=== PATIENT | male | born 1945 | race Caucasian/White ===

== ENCOUNTER → 2018-04-26 | Outpatient (CLI) | payer MEDICARE, OTHER ==
[~2018-04-26] MED LIST: AMLO5 PO; ASPI81EC PO; LISI20 PO; LOVA40 PO; NEBI5 PO; SPIHYD PO; WARF10 PO; WARF5 PO
== END | disposition home or self-care (01) ==
LOC: LAB SHORT 12:13 → LAB 12:13
DX: L03.115 Cellulitis of right lower limb (principal)
CPT/HCPCS: 87070

== ENCOUNTER → 2020-10-25 | Outpatient (CLI) | payer MEDICARE, OTHER | END | disposition home or self-care (01) | LOC: LAB 13:28 → LAB SHORT 13:28 | DX: N39.0 Urinary tract infection, site not specified (principal) | CPT/HCPCS: 87077; 87086; 87186 ==

== ENCOUNTER → 2021-02-07 | Outpatient (CLI) | payer MEDICARE, OTHER ==
[~2021-02-07] MED LIST changes: +FUROSEMIDE40 MG PO; +JANTOVEN10 M2 PO; +K-Dur 20 meq T20 MEQ PO; +NEBI10 PO; +TAMSULOSIN HCL0.4 M1 PO
== END ==
LOC: LAB 13:35 → LAB SHORT 13:35
DX: L97.922 Non-pressure chronic ulcer of unspecified part of left lower leg with fat layer exposed (principal)
CPT/HCPCS: 87070; 87075; 87205

== ENCOUNTER → 2021-11-09 | Outpatient (CLI) | payer MEDICARE, OTHER ==
[2021-11-09 13:48] LABS: BASOPHILS ABSOLUTE AUTO 0.07 K/mm3 (0.00-0.23); BASOPHILS PERCENT AUTO 1 % (0-2); EOSINOPHILS PERCENT AUTO 2 % (0-6); Hematocrit 46.6 % (37.0-53.0); Hemoglobin 17.4 g/dL (13.5-17.5); IMMATURE GRAN ABSOLUTE AUTO 0.05 K/mm3 (0.00-0.10); IMMATURE GRAN PERCENT AUTO 1 % (0-1); LYMPHOCYTES ABSOLUTE AUTO 1.35 K/mm3 (0.84-5.20); LYMPHOCYTES PERCENT AUTO 14 % (21-46); MONOCYTES ABSOLUTE AUTO 0.92 K/mm3 (0.16-1.47); MONOCYTES PERCENT AUTO 9 % (4-13); Mean Corpuscular HGB 35.2 pg (26.0-34.0); Mean Corpuscular HGB Conc 37.3 g/dL (31.5-36.5); Mean Corpuscular Volume 94 fL (80-100); Mean Platelet Volume 11.4 fL (9.1-12.4); NEUTROPHILS ABSOLUTE AUTO 7.16 K/mm3 (1.96-9.15); NEUTROPHILS PERCENT AUTO 74 % (41-73); Platelet Count 197 K/mm3 (150-400); RDW Coefficient Variation 13.1 % (11.7-14.2); RDW Standard Deviation 44.9 fL (35.1-46.3); Red Blood Cell Count 4.94 M/mm3 (4.30-5.90); White Blood Cell Count 9.75 K/mm3 (4.00-11.30)
[2021-11-09 13:54] LABS: Alanine Aminotransfer (ALT/SGP 21 U/L (12-78); Albumin, Blood 3.4 g/dL (3.4-5.0); Albumin/Globulin Ratio 0.8 (0.8-1.8); Alk Phos 98 U/L (50-136); Anion Gap 6 mmol/L (6-16); Aspartate Aminotrans (AST/SGOT 25 U/L (12-37); Bilirubin, Direct 0.2 mg/dL (0.0-0.3); Bilirubin, Indirect 1.2 mg/dL (0.1-0.7); Bilirubin, Total 1.4 mg/dL (0.1-1.0); Blood Urea Nitrogen 22 mg/dL (8-24); Bun/Creatinine Ratio 18.8 (12.0-20.0); CO2, Blood 27 mmol/L (21-32); Chloride, Blood 105 mmol/L (98-108); Creatinine, Blood 1.17 mg/dL (0.60-1.20); Ferritin, Serum 93 ng/mL (26-388); Globulin, Blood 4.5 g/dL (2.2-4.0); Glomerular Filtration Rate >60 (60-); Glucose, Blood 108 mg/dL (70-99); Iron Serum 55 ug/dL (65-175); Percent Saturation 13.6 % (20.0-50.0); Phosphorus, Blood 2.1 mg/dL (2.5-4.9); Potassium, Blood 4.2 mmol/L (3.5-5.5); Sodium, Blood 138 mmol/L (136-145); Total Iron Binding Capacity 403 ug/dL (250-450); Total Protein, Blood 7.9 g/dL (6.4-8.2); Uric Acid, Blood 8.8 mg/dL (3.5-7.2)
[2021-11-11 15:07] LABS: A/G RATIO 0.9 (0.7-1.7); ALBUMIN 3.3 g/dL (2.9-4.4); ALPHA-1-GLOBULIN 0.3 g/dL (0.0-0.4); ALPHA-2-GLOBULIN 0.8 g/dL (0.4-1.0); BETA GLOBULIN 1.2 g/dL (0.7-1.3); GAMMA GLOBULIN 1.8 g/dL (0.4-1.8); GLOBULIN, TOTAL 4.1 g/dL (2.2-3.9); IMMUNOGLOBULIN A, QN, SERUM 348 mg/dL (61-437); IMMUNOGLOBULIN G, QN, SERUM 1727 mg/dL (603-1613); IMMUNOGLOBULIN M, QN, SERUM 96 mg/dL (15-143); M-SPIKE Not Observed g/dL (Not Observed); PROTEIN, TOTAL, SERUM 7.4 g/dL (6.0-8.5)
== END | disposition home or self-care (01) ==
LOC: LAB SHORT 12:43
PROVIDERS: Internal Medicine Nephrology
DX: N18.30 Chronic kidney disease, stage 3 unspecified (principal); D63.1 Anemia in chronic kidney disease; E83.41 Hypermagnesemia; E83.30 Disorder of phosphorus metabolism, unspecified; N25.81 Secondary hyperparathyroidism of renal origin; E78.00 Pure hypercholesterolemia, unspecified; D51.8 Other vitamin B12 deficiency anemias; D52.8 Other folate deficiency anemias; D50.9 Iron deficiency anemia, unspecified; R76.9 Abnormal immunological finding in serum, unspecified; R94.5 Abnormal results of liver function studies; R94.6 Abnormal results of thyroid function studies; Z94.0 Kidney transplant status
CPT/HCPCS: 80053; 82248; 82607; 82728; 82746; 83036; 83540; 83550; 83970; 84100; 84443; 84550; 85025

== ENCOUNTER → 2021-11-09 | Outpatient (CLI) | payer MEDICARE, OTHER ==
[2021-11-10 18:06] LABS: Protein, Urine Random <5.0 mg/dL (0.0-11.9)
== END | disposition home or self-care (01) ==
LOC: LAB SHORT 21:00 → LAB 21:00
PROVIDERS: Internal Medicine Nephrology
DX: N18.30 Chronic kidney disease, stage 3 unspecified (principal); D63.1 Anemia in chronic kidney disease; E83.41 Hypermagnesemia; E83.30 Disorder of phosphorus metabolism, unspecified; N25.81 Secondary hyperparathyroidism of renal origin; E78.00 Pure hypercholesterolemia, unspecified; D51.8 Other vitamin B12 deficiency anemias; D52.8 Other folate deficiency anemias; D50.9 Iron deficiency anemia, unspecified; R76.9 Abnormal immunological finding in serum, unspecified; R94.5 Abnormal results of liver function studies; R94.6 Abnormal results of thyroid function studies; Z94.0 Kidney transplant status
CPT/HCPCS: 82043; 82570; 84156

== ENCOUNTER → 2021-11-10 | Outpatient (CLI) | payer MEDICARE, OTHER ==
[2021-11-10 18:00] LABS: Creatinine, Urine Random 97.1 mg/dL (27.00-270.00); Protein, Urine Random 13.3 mg/dL (0.0-11.9)
[2021-11-10 18:02] LABS: Microalbumin, Random Urine 14.1 mg/L (0.000-20.000)
== END | disposition home or self-care (01) ==
LOC: LAB 11:51 → LAB SHORT 11:51
PROVIDERS: Internal Medicine Nephrology
DX: N18.30 Chronic kidney disease, stage 3 unspecified (principal); D63.1 Anemia in chronic kidney disease; R73.09 Other abnormal glucose; M10.9 Gout, unspecified; N25.81 Secondary hyperparathyroidism of renal origin; E29.1 Testicular hypofunction; R76.9 Abnormal immunological finding in serum, unspecified; R94.5 Abnormal results of liver function studies; R94.6 Abnormal results of thyroid function studies; D51.8 Other vitamin B12 deficiency anemias; D52.8 Other folate deficiency anemias; D50.9 Iron deficiency anemia, unspecified
CPT/HCPCS: 82043; 82570; 84156

== ENCOUNTER 2022-08-30 06:17 | Observation (INO) | payer MEDICARE, OTHER ==
[~2022-08-30] VITALS: Ht 188 cm; Wt 124.5 kg
[~2022-08-30 06:17] MED LIST changes: +BUME2 PO; +METO5 PO
[2022-08-30 07:28] LABS: BASOPHILS ABSOLUTE AUTO 0.04 K/mm3 (0.00-0.23); BASOPHILS PERCENT AUTO 1 % (0-2); EOSINOPHILS ABSOLUTE AUTO 0.11 K/mm3 (0.00-0.68); EOSINOPHILS PERCENT AUTO 2 % (0-6); Hematocrit 42.7 % (37.0-53.0); IMMATURE GRAN ABSOLUTE AUTO 0.01 K/mm3 (0.00-0.10); IMMATURE GRAN PERCENT AUTO 0 % (0-1); LYMPHOCYTES ABSOLUTE AUTO 1.31 K/mm3 (0.84-5.20); LYMPHOCYTES PERCENT AUTO 21 % (21-46); MONOCYTES ABSOLUTE AUTO 0.66 K/mm3 (0.16-1.47); MONOCYTES PERCENT AUTO 10 % (4-13); Mean Corpuscular HGB 30.8 pg (26.0-34.0); Mean Corpuscular HGB Conc 32.8 g/dL (31.5-36.5); Mean Corpuscular Volume 94 fL (80-100); Mean Platelet Volume 11.4 fL (9.1-12.4); NEUTROPHILS ABSOLUTE AUTO 4.23 K/mm3 (1.96-9.15); NEUTROPHILS PERCENT AUTO 67 % (41-73); Platelet Count 152 K/mm3 (150-400); RDW Coefficient Variation 12.9 % (11.7-14.2); RDW Standard Deviation 44.6 fL (35.1-46.3); Red Blood Cell Count 4.55 M/mm3 (4.30-5.90); White Blood Cell Count 6.36 K/mm3 (4.00-11.30)
[2022-08-30 07:35] LABS: International Normalized Ratio 1.34; Prothrombin Time Results 13.8 Sec (9.7-11.5)
--- NOTE | 2022-08-30 08:13 | NUR ---
08/30/22 0813 Susan Shane PILLOW UNDER KNEES, GEL UNDER HEELS, ARMS TUCKED AT SIDE, SHOULDER ROLL, HEAD ON DONUT. POSITION VERIFIED BY SURGEON AND ANESTHESIA.
--- NOTE | 2022-08-30 09:25 | NUR ---
08/30/22 0925 SABRINA MONROY PT JUST REMOVED O2 AT 0922. SAID HE DIDN'T NEED IT. O2 DROPPED TO UPPER 80'S. O2 BACK ON VIA FACE TENT. NOW 95% ON 15 L. WILL DECREASE TO 10L FOR TRAIL. INFORMED THAT PREOP O2 SAT ON RA WAS 95%
--- NOTE | 2022-08-30 09:58 | NUR ---
08/30/22 0958 SABRINA MONROY PT O2 SAT DROPPED AGAIN WHEN MOVED TO STEP DISPITE DEEP BREATH AND COUGH. TEMPORARILY INTO 70'S. O2 ON 15L INITIALLY BROUTH UP INTO HIGH 90'S. DROPPED O2 TO 10L. CURRENTLY 99% ON 10L. WILL DROP TO 5L FOR TRIAL.
[2022-08-30 15:40] LABS: BASOPHILS ABSOLUTE AUTO 0.01 K/mm3 (0.00-0.23); BASOPHILS PERCENT AUTO 0 % (0-2); EOSINOPHILS PERCENT AUTO 0 % (0-6); Hematocrit 42.4 % (37.0-53.0); Hemoglobin 13.2 g/dL (13.5-17.5); IMMATURE GRAN ABSOLUTE AUTO 0.02 K/mm3 (0.00-0.10); IMMATURE GRAN PERCENT AUTO 0 % (0-1); LYMPHOCYTES ABSOLUTE AUTO 0.42 K/mm3 (0.84-5.20); LYMPHOCYTES PERCENT AUTO 6 % (21-46); MONOCYTES ABSOLUTE AUTO 0.08 K/mm3 (0.16-1.47); MONOCYTES PERCENT AUTO 1 % (4-13); Mean Corpuscular HGB 30.2 pg (26.0-34.0); Mean Corpuscular HGB Conc 31.1 g/dL (31.5-36.5); Mean Corpuscular Volume 97 fL (80-100); Mean Platelet Volume 10.6 fL (9.1-12.4); NEUTROPHILS ABSOLUTE AUTO 6.75 K/mm3 (1.96-9.15); NEUTROPHILS PERCENT AUTO 93 % (41-73); Platelet Count 142 K/mm3 (150-400); RDW Coefficient Variation 12.8 % (11.7-14.2); RDW Standard Deviation 46.1 fL (35.1-46.3); Red Blood Cell Count 4.37 M/mm3 (4.30-5.90); White Blood Cell Count 7.28 K/mm3 (4.00-11.30)
[2022-08-30 16:02] LABS: Albumin, Blood 3.4 g/dL (3.4-5.0); Bilirubin, Total 1.3 mg/dL (0.1-1.0); Bun/Creatinine Ratio 19.3 (12.0-20.0); Calcium, Blood 10.4 mg/dL (8.5-10.1); Creatinine, Blood 1.14 mg/dL (0.60-1.20); Globulin, Blood 3.4 g/dL (2.2-4.0); Potassium, Blood 4.1 mmol/L (3.5-5.5); Total Protein, Blood 6.8 g/dL (6.4-8.2)
--- NOTE | 2022-08-30 18:41 | NUR ---
SHIFT SUMMARY- ASSUMED CARE OF PT AT 1430 FROM [facility], PROCEDURE DONE IN AM. REPORT GIVEN FROM PAUL MIGUEL. PT SAT OK SITTING BUT DECLINED HE LAID IN BED, O2 4L VIA NC. SATING NOW AT 92-94. PT ABLE TO STAND WITHOUT ASSITANCE. NO DIZZINESS NOTED. APPETITE GOOD. A&O X4. NO VISUAL DISTURBANCES SINCE ADMITTED TO FLOOR. PT RESTING NOW WITH CALL LIGHT IN REACH, WILL CONTIINUE TO MONITOR.
[2022-08-31 04:15] LABS: International Normalized Ratio 1.19; Prothrombin Time Results 12.4 Sec (9.7-11.5)
[2022-08-31 04:19] LABS: Calcium, Blood 10.1 mg/dL (8.5-10.1); Creatinine, Blood 1.24 mg/dL (0.60-1.20); Potassium, Blood 4.3 mmol/L (3.5-5.5)
--- NOTE | 2022-08-31 05:44 | NUR ---
SHIFT SUMMARY ASSUMED CARE OF PT @ 1900. PT IS A/OX4 BUT LETHARGIC. PT REMAINED ON 3L NC T/O THE NIGHT. LUNG SOUNDS DIMINISHED. HEART SOUNDS IRREGULAR.PT HR DIPPED TO 45 DURING THE NIGHT. VSS. NECK WOUND DRESSING C/D/I. PT HAD NO COMPLAINTS OF PAIN.
--- NOTE | 2022-08-31 07:14 | NUR ---
NURSING PCU DAYSHIFT: Assumed care of pt at approx 0700. A/O, very pleasant, cooperative w/care. C/O 2/10 anterior neck pain r/t recent sx, denies need for pain management. Gauze dressing in place to sx site, CDI, skin otherwise intact. Able to reposition independently in bed w/o difficulty though requires assistance w/xfers for line management. Tele in place, afib, HR 50-60's, no c/o CP/pressure, hypertensive prior to a.m. meds, 1-2+ BLE edema (L>R). L/S coarse in upper lobes, fine crackles to LLL, frequent moist/unproductive cough, O2 sat upper 90's on 2L NC while awake though staff reported desaturations while asleep, denies dyspnea. Abd SNT, BT+, voiding w/o difficulty per pt. PIV x1, s/l. No s/s of acute distress this a.m. Will monitor HTN and respiratory status after a.m. med administration. Pt anticipating discharge home. Denies any current needs or questions regarding plan of care. Awaiting rounding from PMD, cont to monitor for any changes.
[2022-08-31] MEDS ORDERED: POTA10T PO (11:09)
[2022-08-31] MEDS ORDERED: LOSA50 PO (11:13)
[2022-08-31] MEDS ORDERED: BACITRACIN ZIN1 EAC1 TOP (11:20)
[2022-08-31] MEDS ORDERED: Acetaminophen650 M1 PO (12:12)
[2022-08-31] MEDS ORDERED: CARV6.25 PO (12:13)
--- NOTE | 2022-08-31 12:18 | NUR ---
Call to Dr Maxwell after pt had a 3 second pause on telemetry. Atrial fibrillation, rate 50-65 while awake. Discharge cancelled. Dr. León's office was called and notified as well.
--- NOTE | 2022-08-31 16:26 | NUR ---
Call to Dr. Sapp after patient had atrial fibrillation down to rate of 37 bpm while awake. New order received for overnight sleep oximetry. Also given instructions to hold the coumadin as the pt is still having tea-colored urine with dark red sediment in it.
[2022-08-31 16:42] LABS: Magnesium, Blood 1.7 mg/dL (1.6-2.4)
[2022-08-31 16:44] LABS: Thyroid Stimulating Hormone 1.49 uIU/mL (0.360-4.800)
--- NOTE | 2022-08-31 16:48 | NUR ---
Pt has had a productive cough occasionally this afternoon, white sputum. States he's had the cough for "20 years". Lung sounds are clear on inspiration, expiratory wheezing. He is not in distress, denies any dyspnea. Sp02 96% on 2 l/min. Oxygen in use because he has been napping and spo2 drops while he is sleeping. He is able to stand at the bedside, use the urinal, reposition in bed without any apparent difficulty. Atrial fibrillation, rate 55-65 bpm noted at bedside. Denies pain at surgical site. Dressing was the removed, incision was clean, dry and edges approximated. Red bruising noted around the incision. Bacitracin ointment applied as ordered by Dr. León.
--- NOTE | 2022-08-31 16:58 | NUR ---
Urine color is light pink.
[2022-09-01 04:07] LABS: International Normalized Ratio 1.56; Prothrombin Time Results 15.9 Sec (9.7-11.5)
[2022-09-01 04:09] LABS: Bun/Creatinine Ratio 23.4 (12.0-20.0); Calcium, Blood 9.6 mg/dL (8.5-10.1); Creatinine, Blood 1.45 mg/dL (0.60-1.20); Potassium, Blood 3.7 mmol/L (3.5-5.5)
--- NOTE | 2022-09-01 05:41 | NUR ---
SHIFT SUMMARY PT IS A&OX4, BUT NEEDS REMINDERS TO USE HIS CALL LIGHT WHEN GETTING OUT OF BED. HE HAS BEEN GETTING UP ABOUT EVERY 30 MINS TO URINATE, AND HAS URGENCY WHEN NEEDING TO VOID SO HE DOES NOT WAIT VERY LONG AFTER HITTING HIS CALL BUTTON FOR ASSISTANCE. A [facility], BUT WAS UNSUCCESSFUL DUE TO THE FREQUENCY OF URINATION. THE PT HAS BEEN GETTING DIURETICS, AND WAS FRUSTRATED ABOUT TAKING THEM LATER IN THE DAY. HE HAS BARLEY SLEPT TONIGHT. PT'S SPO2 WAS 74-95 T/O THE TRIAL ON RA, BUT ONCE RT STOPPED THE STUDY THE PT WAS PLACED ON 2L NC TO MAINTAIN SPO2 >90%. ALL OTHER VS HAVE BEEN STABLE, HE HAS HAD NO PAUSES ON TELEMETRY. THE PT IS W/O ANY COMPLAINTS, AND HE HAS HAD A NON-PRODUCTIVE CONSTANT COUGH. THE PT HAS A BED ALARM ON, BED IN LOW, DOOR IS OPEN, HE IS SBA FOR TX, AND MOVES IND IN BED. WILL CONTINUE TO MONITOR UNTIL REPORT IS GIVNE TO THE ONCOMING SHIFT RN. SEE NOTES FOR ANY UPDATES.
--- NOTE | 2022-09-01 06:44 | NUR ---
TELEMETRY UPDATE TELE REPORTED AN 8 BEAT RIGHT BUNDLE FLIP AROUND 0600. BACK IN NSR CURRENTLY.
[2022-09-01] MEDS ORDERED: AMLO5 PO (10:10)
[2022-09-01] MEDS ORDERED: BACITRACIN ZIN1 EAC1 TOP (10:11)
--- NOTE | 2022-09-01 12:52 | NUR ---
DISCHARGE UPDATE DISCHARGE PACKET GONE OVER WITH PT AND PT AT 1155. PT LEFT UNIT AT 1215 VIA WHEELCHAIR AND ON RA. PT ABLE TO DRESS AND TRANSFER SELF TO AND FROM WHEELCHAIR ON HIS OWN WITH NO ASSISTANCE. NO REPORT OF DIZZINESS, LIGHTHEADEDNESS, OR PALPITATION. PT BELONGINGS IN BAGS AND WITH PT ALONG WITH DISCHARGE PACKET.
== END 2022-09-01 12:16 | disposition home or self-care (01) ==
LOC: ORSCSDS 06:17 → PCU 15:10
PROVIDERS: Internal Medicine; Nurse Practitioner Acute Care; ADMIT Otolaryngology
DX: E21.0 Primary hyperparathyroidism (principal); D35.1 Benign neoplasm of parathyroid gland; I48.20 Chronic atrial fibrillation, unspecified; I45.5 Other specified heart block; J95.89 Other postprocedural complications and disorders of respiratory system, not elsewhere classified; R09.02 Hypoxemia; N40.0 Benign prostatic hyperplasia without lower urinary tract symptoms; I27.20 Pulmonary hypertension, unspecified; E87.70 Fluid overload, unspecified; D63.8 Anemia in other chronic diseases classified elsewhere; I13.0 Hypertensive heart and chronic kidney disease with heart failure and stage 1 through stage 4 chronic kidney disease, or unspecified chronic kidney disease; I50.32 Chronic diastolic (congestive) heart failure; N18.30 Chronic kidney disease, stage 3 unspecified; E78.5 Hyperlipidemia, unspecified; I87.8 Other specified disorders of veins; R31.9 Hematuria, unspecified; M81.0 Age-related osteoporosis without current pathological fracture; Z79.01 Long term (current) use of anticoagulants; Z79.82 Long term (current) use of aspirin; Z87.891 Personal history of nicotine dependence
CPT/HCPCS: 36415; 71045; 80048; 80053; 83735; 83880; 83970; 84443; 84484; 85025; 85610; 85730; 88305; 88331; 93246; 94760; 94761; 94762; A9270; G0378; J1100; J2250; J2405; J2704; J3010

== ENCOUNTER 2022-09-17 16:25 | Inpatient (IN) | payer MEDICARE, OTHER ==
[~2022-09-17] VITALS: Ht 190.5 cm; Wt 119.0 kg
[~2022-09-17 16:25] MED LIST changes: +AMLO5 PT; +Acetaminophen650 M1 PO; +BACITRACIN ZIN1 EAC1 TOP; -BUME2 PO; +BUME2 PT; +CARV6.25 PO; +LOSA50 PT; -METO5 PO; +METO5 PT; +POTA10T PT; -TAMSULOSIN HCL0.4 M1 PO; +TAMSULOSIN HCL0.4 M1 PT
[2022-09-17 17:14] LABS: Magnesium, Blood 1.5 mg/dL (1.6-2.4)
[2022-09-17 17:16] LABS: Albumin, Blood 3.5 g/dL (3.4-5.0); Albumin/Globulin Ratio 0.9 (0.8-1.8); Calcium, Blood 9.1 mg/dL (8.5-10.1); Globulin, Blood 4.1 g/dL (2.2-4.0); Potassium, Blood 4.8 mmol/L (3.5-5.5); Thyroid Stimulating Hormone 5.37 uIU/mL (0.360-4.800); Total Protein, Blood 7.6 g/dL (6.4-8.2)
[2022-09-17 18:11] LABS: BASOPHILS ABSOLUTE AUTO 0.03 K/mm3 (0.00-0.23); BASOPHILS PERCENT AUTO 0 % (0-2); EOSINOPHILS PERCENT AUTO 0 % (0-6); Hematocrit 44.6 % (37.0-53.0); IMMATURE GRAN ABSOLUTE AUTO 0.05 K/mm3 (0.00-0.10); IMMATURE GRAN PERCENT AUTO 0 % (0-1); LYMPHOCYTES ABSOLUTE AUTO 0.61 K/mm3 (0.84-5.20); LYMPHOCYTES PERCENT AUTO 5 % (21-46); MONOCYTES PERCENT AUTO 5 % (4-13); Mean Corpuscular HGB 30.2 pg (26.0-34.0); Mean Corpuscular HGB Conc 33.6 g/dL (31.5-36.5); Mean Corpuscular Volume 90 fL (80-100); Mean Platelet Volume 10.4 fL (9.1-12.4); NEUTROPHILS ABSOLUTE AUTO 11.36 K/mm3 (1.96-9.15); NEUTROPHILS PERCENT AUTO 90 % (41-73); Platelet Count 213 K/mm3 (150-400); RDW Coefficient Variation 12.4 % (11.7-14.2); RDW Standard Deviation 41.1 fL (35.1-46.3); Red Blood Cell Count 4.96 M/mm3 (4.30-5.90); White Blood Cell Count 12.65 K/mm3 (4.00-11.30)
[2022-09-17 18:14] LABS: Influenza A, PCR NEGATIVE (NEGATIVE); Influenza B, PCR NEGATIVE (NEGATIVE); Resp Syncytial Virus, PCR NEGATIVE (NEGATIVE); SARS-Cov-2 (COVID-19) PCR, MMC NEGATIVE (NEGATIVE)
[2022-09-17 18:15] LABS: International Normalized Ratio 1.41; Prothrombin Time Results 14.5 Sec (9.7-11.5)
[2022-09-17 20:51] LABS: Source, Urine Straight Cath
[2022-09-17 21:07] LABS: Appearance, Urine Clear (Clear); Bilirubin, Urine Neg (Neg); Blood, Urine 2+ (Neg); Color, Urine Yellow (P-Yellow); Glucose Qualitative, Urine Neg (Neg); Ketones, Urine 1+ (Neg); Leukocyte Esterase, Urine 1+ (Neg); Nitrite, Urine Neg (Neg); Protein, Urine 2+ (Neg); Urobilinogen, Urine NORM (Normal)
[2022-09-17 22:02] LABS: Bacteria Few /hpf; Hyaline Casts 0-2 /lpf (0-2); Spermatozoa Few /hpf; Squamous Epithelial Cells Few /hpf (Few); White Blood Cells, Urine 0-2 /hpf (0-5)
[2022-09-18 04:22] LABS: BASOPHILS ABSOLUTE AUTO 0.03 K/mm3 (0.00-0.23); BASOPHILS PERCENT AUTO 0 % (0-2); EOSINOPHILS ABSOLUTE AUTO 0.01 K/mm3 (0.00-0.68); EOSINOPHILS PERCENT AUTO 0 % (0-6); Hematocrit 42.8 % (37.0-53.0); Hemoglobin 14.1 g/dL (13.5-17.5); IMMATURE GRAN ABSOLUTE AUTO 0.04 K/mm3 (0.00-0.10); IMMATURE GRAN PERCENT AUTO 1 % (0-1); LYMPHOCYTES ABSOLUTE AUTO 0.99 K/mm3 (0.84-5.20); LYMPHOCYTES PERCENT AUTO 11 % (21-46); MONOCYTES PERCENT AUTO 8 % (4-13); Mean Corpuscular HGB 29.6 pg (26.0-34.0); Mean Corpuscular HGB Conc 32.9 g/dL (31.5-36.5); Mean Corpuscular Volume 90 fL (80-100); Mean Platelet Volume 10.3 fL (9.1-12.4); NEUTROPHILS ABSOLUTE AUTO 6.96 K/mm3 (1.96-9.15); NEUTROPHILS PERCENT AUTO 80 % (41-73); Platelet Count 224 K/mm3 (150-400); RDW Coefficient Variation 12.4 % (11.7-14.2); RDW Standard Deviation 41.3 fL (35.1-46.3); Red Blood Cell Count 4.76 M/mm3 (4.30-5.90); White Blood Cell Count 8.73 K/mm3 (4.00-11.30)
[2022-09-18 04:43] LABS: Albumin, Blood 3.2 g/dL (3.4-5.0); Albumin/Globulin Ratio 0.8 (0.8-1.8); Bun/Creatinine Ratio 16.4 (12.0-20.0); Calcium, Blood 9.3 mg/dL (8.5-10.1); Creatinine, Blood 1.16 mg/dL (0.60-1.20); Globulin, Blood 4.1 g/dL (2.2-4.0); Potassium, Blood 4.3 mmol/L (3.5-5.5); Total Protein, Blood 7.3 g/dL (6.4-8.2)
--- NOTE | 2022-09-18 05:54 | NUR ---
SHIFT SUMMARY ASSUMED CARE OF PT. ADMITTED FROM ER. PT IS ALERT AND TALKING BUT NOT ORIENTED. PT ABLE TO MAKE NEEDS KNOWN. HEART SOUNDS IRREGULAR, TELE SHOWS AFIB. LUNG SOUNDS CLEAR. PT HAS FAINT PERIPHERAL PULSES. R LEG IS VERY COOL TO TOUCH. L EXTREMIITESIS HOT TO TOUCH WITH ABRASIONS. PT ABLE TO LIFT L LEG SLIGHTLY BUT CANT LIFT L ARM. PT C/I ON BLADDER. PT RETAIING URINE. BLADDER SCAN SHOWED 250 AND PT URINATED 50CC.
--- NOTE | 2022-09-18 16:08 | NUR ---
PERFORMED SUCTION ON PATIENT FOR PRODUCTIVE COUGH. FOLLOWING SUCTION, COUGH PERSISTED, BUT PATIENT STATED NO SECRETIONS WERE COMING UP TO CLEAR, SO HE DECLINED FURTHER SUCTION AT THIS TIME.
--- NOTE | 2022-09-18 16:24 | NUR ---
Shift Summary Pt alert this am, oriented to self. Garbled speech noted. Left sided facial droop, left arm flaccid and minimal gross movement noted to left leg. Pt on bedrest, q2 turn. Speech in to see patient this afternoon, pt failed planned for barrium swallow eval tomorrow. MRI completed this afternoon, Dr Ramos notified of results. Tele afib, bp stable. Spo2 >90% on ra, breathing even and unlabored. Wet weak cough noted, suctioned with minimal out. Vss. No other acute changes noted. Will continue to monitor unitl report given to oncoming rn.
--- NOTE | 2022-09-18 18:50 | NUR ---
Evening ekg completed, notified edilberto Rushing for discharge with medciation per emar. Notified Dr Peres and discussed elevated bp, new orders for discharge. Educated pt on discharge instructions, follow up appointment and new prescirptions. Prescriptions called/faxed to [facility] pharmacy, per pt request. Educated pt on medications and the need to keep blood pressure log, and follow up with pcp on bp. Pt left via wheelchair at 1837.
--- NOTE | 2022-09-19 06:33 | NUR ---
NOC SHIFT SUMMARY PT SLEPT WELL OVERNIGHT. ORIENTED X2-3, UNSURE OF DATE OR TIME. BRIDGETTE. AFIB ON TELEMETRY. L PO DROOP. VSS ON RA. CONDOM CATH PLACED D/T URINE INCONTINENCE. BED ALARM IN PLACE AND CALL LIGHT WITHIN REACH. WILL PASS ON TO DAY RN
[2022-09-19 13:11] LABS: CHOL/HDL RATIO 3.6; Cholesterol 115 mg/dL (50-200); HDL Cholesterol 32 mg/dL (>39); LDL/HDL RATIO 2.1; Low Density Lipoprotein Chol 66 mg/dL (0-110); Triglycerides 84 mg/dL (30-160); Very Low Density Lipoprot Chol 16 mg/dL (6-32)
--- NOTE | 2022-09-19 13:29 | NUR ---
Echocardiogram completed.
--- NOTE | 2022-09-19 17:47 | NUR ---
SHIFT SUMMARY PT ALERT, ORIENTED x3, FORGETUL AT TIMES. LEFT FACIAL DROOP PRESENT, LEFT ARM FLACCID, AND MINIMAL GROSS MOVEMENT TO LEFT LEG. PT DENIES PAIN, CHEST PAIN/PRESSURE, SOB, NAUSEA, DIZZINESS AND NUMB/TINGLING. PT UNABLE TO TELL WHEN HIS LEFT SIDE IS BEING TOUCHED. INCREASED SECRETIONS NOTED, SUCTIONED SEVERAL TIMES T/O SHIFT. PT RESTING IN BED, Q2 TURN. PT UP TO SIDE OF BED WITH PT/OT THIS AFTERNOON. PT HAD ST EVAL THIS AM, STRICT NPO, PLANS FOR PEG TUBE TOMORROW. VSS. NO OTHER ACUTE CHANGES NOTED. WILL CONITNUE TO MONITOR UNTIL REPORT GIVEN TO ONCOMING RN.
--- NOTE | 2022-09-20 05:59 | NUR ---
NOC SHIFT SUMMARY PT SLEPT WELL OVERNIGHT. ORIENTED X4 BUT FORGETFUL. L ARM AND L LEG DEFICIT. L PO DROOP. POOR CLEARANCE OF SECRETIONS, SUCTION AT BEDSIDE AND ORAL CARE Q4. PT NPO, UPDATED ON PLAN OF CARE - PLANS FOR PEG TUBE PLACEMENT TODAY. CONDOM CATH IN PLACE. NO BM. DENIES PAIN OR DISCOMFORT. AFIB IN 60S ON TELEMETRY. WILL PASS ON TO DAY RN
--- NOTE | 2022-09-20 14:39 | NUR ---
PT TO DAY SURGERY AWAITING PROCEDURE. PT RESTING QUIETLY WITH EYES CLOSED.
--- NOTE | 2022-09-20 15:13 | NUR ---
09/20/22 1513 Rakesh Presley History, Chart, Medications and Allergies reviewed before start of procedure.MONITOR INTACT WITH CONTINUOUS PULSE OXIMETRY AND INTERMITTENT BP.3-LEAD EKG REVIEWED WITH PHYSICIAN PRIOR TO START OF PROCEDURE.O2 VIA POM INTACT THROUGHOUT SEDATION/PROCEDURE. See Anesthesia record.
--- NOTE | 2022-09-20 17:28 | NUR ---
SHIFT SUMMARY PT ALERT, ORINETED x4, FORGETFUL AT TIMES. PT HAS LEFT FACIAL DROOP, FLACCID LUE AND MINIMAL GROSS MOVEMENT TO LLE. PT DENIES PAIN, CHEST PAIN/PRESSURE, SOB, NAUSEA, DIZZINESS AND NUMB/TINGLING. TELE AFIB THIS AM 70-60, THIS AFTERNOON 50-70'S, BP STALBE. SPO2 >90% ON RA, BREATHING EVEN AND UNLABORED, WET COUGT NOTED, SUCTION SECRETIONS T/O SHIFT. Q4 ORAL CARE, STRICT NPO. PEG TUBE PLACED THIS AFTERNOON, PLANS TO START TUBE FEEDING TOMORROW 09/21. OTHER VSS. NO OTHER ACUTE CHANGES NOTED. WILL CONTINUE TO MONITOR.
[2022-09-21] MEDS ORDERED: Acetaminophen650 M1 PT (02:11)
--- NOTE | 2022-09-21 05:51 | NUR ---
SHIFT SUMMARY PT TRANSFERED FROM PCU 1 THIS EVENING. ADM DX OF CVA. PT HAS BEEN SLEEPING SINCE TRANSFER. INCONTINENT, HEAVY WETTER. ATTENDS IN PLACE. PT WITH LEFT SIDED WEAKNESS. NEARLY FLACCID. LEFT ARM EDEMATOUS, IN A SLING AND ELEVATED ON PILLOWS. NEW PEG TUBE PRESENT. SITE FREE FROM SIGNS OF INFECTION. TELEMETRY READING AFIB IN THE 60'S. ONE RUN OF 10 BEATS OF VTACH. PT HAS HAD PREVIOUS EPISODES OF THIS. SLEPT THROUGH IT. ASYMPTOMATIC. VITAL SIGNS STABLE.
[2022-09-21 06:21] LABS: BASOPHILS ABSOLUTE AUTO 0.04 K/mm3 (0.00-0.23); BASOPHILS PERCENT AUTO 1 % (0-2); EOSINOPHILS PERCENT AUTO 1 % (0-6); Hematocrit 43.5 % (37.0-53.0); Hemoglobin 14.3 g/dL (13.5-17.5); IMMATURE GRAN ABSOLUTE AUTO 0.04 K/mm3 (0.00-0.10); IMMATURE GRAN PERCENT AUTO 1 % (0-1); LYMPHOCYTES ABSOLUTE AUTO 0.83 K/mm3 (0.84-5.20); LYMPHOCYTES PERCENT AUTO 11 % (21-46); MONOCYTES ABSOLUTE AUTO 0.68 K/mm3 (0.16-1.47); MONOCYTES PERCENT AUTO 9 % (4-13); Mean Corpuscular HGB 29.9 pg (26.0-34.0); Mean Corpuscular HGB Conc 32.9 g/dL (31.5-36.5); Mean Corpuscular Volume 91 fL (80-100); Mean Platelet Volume 11.4 fL (9.1-12.4); NEUTROPHILS ABSOLUTE AUTO 5.67 K/mm3 (1.96-9.15); NEUTROPHILS PERCENT AUTO 77 % (41-73); Platelet Count 145 K/mm3 (150-400); RDW Coefficient Variation 12.6 % (11.7-14.2); RDW Standard Deviation 41.8 fL (35.1-46.3); Red Blood Cell Count 4.79 M/mm3 (4.30-5.90); White Blood Cell Count 7.36 K/mm3 (4.00-11.30)
[2022-09-21 06:47] LABS: Bun/Creatinine Ratio 21.6 (12.0-20.0); Creatinine, Blood 0.93 mg/dL (0.60-1.20); Phosphorus, Blood 3.2 mg/dL (2.5-4.9); Potassium, Blood 4.2 mmol/L (3.5-5.5)
--- NOTE | 2022-09-21 09:04 | NUR ---
TUBE FEEDINGS STARTED THIS AM.
--- NOTE | 2022-09-21 16:58 | NUR ---
SHIFT SUMMARY NO ACUTE CHANGES THIS SHIFT. PT HAS LEFT SIDE FLACCIDITY AND WORKED WITH PT/OT THIS SHIFT. TUBE FEEDINGS STARTED VIA PEG TUBE, WHICH PATIENT IS TOLERATING WELL. VSS. PT UP IN THE CHAIR USING CEILING LIFT.
--- NOTE | 2022-09-22 04:52 | NUR ---
SHIFT SUMMARY PT AWAKE MUCH OF THE EVENING. FREQUENTLY REQUESTING THINGS TO EAT AND DRINK. ORAL CARE PERFORMED THROUGHOUT THE SHIFT. TUBE FEEDING RUNNING VIA PEG TUBE AT GOAL RATE OF 80 MG/HR. PT TOLERATING WELL. MULTIPLE LOOSE STOOLS THIS EVENING. PT INCONTINENT OF BOTH URINE AND STOOL. LEFT UPPER AND LOWER EXTREMETIES FLACCID. PT ABLE TO ASSIST USING R SIDE WITH TURNS AND CHANGES. PT RECIEVED FULL BED BATH AND LINEN CHANGE THIS EVENING. LIFT USED TO TRANSFER FROM RECLINER TO BED. TELEMETRY AFIB IN THE 70'S. PT REMAINED ON RA. VITAL SIGNS STABLE. WILL CONTINUE TO MONITOR.
[2022-09-22 11:29] LABS: Influenza A, PCR NEGATIVE (NEGATIVE); Influenza B, PCR NEGATIVE (NEGATIVE); Resp Syncytial Virus, PCR NEGATIVE (NEGATIVE); SARS-Cov-2 (COVID-19) PCR, MMC NEGATIVE (NEGATIVE)
[2022-09-22] MEDS ORDERED: ASPI81CH PT (11:40)
[2022-09-22] MEDS ORDERED: ATOR40TA PT (11:41)
[2022-09-22] MEDS ORDERED: ELIQUIS5 M2 PT (11:41)
--- NOTE | 2022-09-22 14:59 | NUR ---
DISCHARGE SUMMARY PT'S SPEECH IMPROVED TODAY BUT STILL STRICT NPO. PEG TUBE TOLERATING CONTINUOUS FEEDS. FEEDING CHANGED TO LITER BOLUS AT MEAL TIMES. PT HAVING SEVERAL LIQUID STOOLS. DC'D TO BOOM AND REPORT GIVEN TO BOOM MIGUEL.
== END 2022-09-22 14:15 | DRG 65 ==
LOC: ER 16:25 → MEDS 20:02 → PCU 20:02 → MEDS 09-21 02:41
PROVIDERS: Internal Medicine; Student in an Organized Health Care Education/Training Program; Surgery; ADMIT Internal Medicine
PROC: 0DH63UZ Insertion of Feeding Device into Stomach, Percutaneous Approach (ICD-10-PCS; principal; 2022-09-20 15:00)
DX: I63.511 Cerebral infarction due to unspecified occlusion or stenosis of right middle cerebral artery (principal); G81.94 Hemiplegia, unspecified affecting left nondominant side; I48.20 Chronic atrial fibrillation, unspecified; N40.0 Benign prostatic hyperplasia without lower urinary tract symptoms; R13.10 Dysphagia, unspecified; E20.9 Hypoparathyroidism, unspecified; I27.21 Secondary pulmonary arterial hypertension; Z20.822 Contact with and (suspected) exposure to COVID-19; R29.810 Facial weakness; W07.XXXA Fall from chair, initial encounter; M25.569 Pain in unspecified knee; E89.0 Postprocedural hypothyroidism; Z79.899 Other long term (current) drug therapy; Z79.01 Long term (current) use of anticoagulants; E21.3 Hyperparathyroidism, unspecified; Z87.891 Personal history of nicotine dependence
CPT/HCPCS: 0241U; 36415; 70450; 70496; 70498; 70551; 71045; 74230; 80048; 80053; 80061; 81001; 83036; 83735; 84100; 84439; 84443; 84484; 85025; 85610; 87086; 92526; 92610; 92611; 93005; 93010; 93306; 94762; 96365-59; 96375-59; 97112; 97162; 97166; 97530; 97535; 99285-25; A9270; J0456; J0690; J0696; J1650; J2001; J2405; J2704; J3475; J7030; J7050; J7120; Q9967

== ENCOUNTER 2022-09-25 07:36 | Inpatient (IN) | payer MEDICARE, OTHER ==
[~2022-09-25] VITALS: Ht 190.5 cm; Wt 123.0 kg
[~2022-09-25 07:36] MED LIST changes: +ASPI81CH PT; +ATOR40TA PT; +Acetaminophen650 M1 PT; +ELIQUIS5 M2 PT
[2022-09-25 08:47] LABS: BASOPHILS ABSOLUTE AUTO 0.07 K/mm3 (0.00-0.23); BASOPHILS PERCENT AUTO 1 % (0-2); EOSINOPHILS ABSOLUTE AUTO 0.05 K/mm3 (0.00-0.68); EOSINOPHILS PERCENT AUTO 0 % (0-6); Hematocrit 51.1 % (37.0-53.0); Hemoglobin 16.6 g/dL (13.5-17.5); IMMATURE GRAN ABSOLUTE AUTO 0.05 K/mm3 (0.00-0.10); IMMATURE GRAN PERCENT AUTO 0 % (0-1); LYMPHOCYTES ABSOLUTE AUTO 1.61 K/mm3 (0.84-5.20); LYMPHOCYTES PERCENT AUTO 11 % (21-46); MONOCYTES ABSOLUTE AUTO 1.71 K/mm3 (0.16-1.47); MONOCYTES PERCENT AUTO 12 % (4-13); Mean Corpuscular HGB 28.9 pg (26.0-34.0); Mean Corpuscular HGB Conc 32.5 g/dL (31.5-36.5); Mean Corpuscular Volume 89 fL (80-100); Mean Platelet Volume 10.5 fL (9.1-12.4); NEUTROPHILS ABSOLUTE AUTO 11.14 K/mm3 (1.96-9.15); NEUTROPHILS PERCENT AUTO 76 % (41-73); Platelet Count 232 K/mm3 (150-400); RDW Coefficient Variation 13.1 % (11.7-14.2); RDW Standard Deviation 42.5 fL (35.1-46.3); Red Blood Cell Count 5.74 M/mm3 (4.30-5.90); White Blood Cell Count 14.63 K/mm3 (4.00-11.30)
[2022-09-25 08:49] LABS: Bun/Creatinine Ratio 29.1 (12.0-20.0); Calcium, Blood 9.3 mg/dL (8.5-10.1); Creatinine, Blood 1.48 mg/dL (0.60-1.20); Potassium, Blood 4.2 mmol/L (3.5-5.5)
[2022-09-25 10:17] LABS: Creatine Kinase MB 3.4 ng/mL (0.0-3.6); Creatine Kinase MB Index 0.7 (0.0-4.0)
[2022-09-25 10:47] LABS: Source, Urine Clean Catch
[2022-09-25 10:56] LABS: Appearance, Urine Clear (Clear); Bilirubin, Urine Neg (Neg); Blood, Urine 1+ (Neg); Color, Urine Yellow (P-Yellow); Glucose Qualitative, Urine Neg (Neg); Ketones, Urine Neg (Neg); Leukocyte Esterase, Urine Neg (Neg); Nitrite, Urine Neg (Neg); Protein, Urine Neg (Neg); Specific Gravity, Urine 1.015 (1.003-1.022); Urobilinogen, Urine NORM (Normal)
[2022-09-25 11:06] LABS: Bacteria Rare /hpf; Hyaline Casts 0-2 /lpf (0-2); Squamous Epithelial Cells Rare /hpf (Few); White Blood Cells, Urine 0-2 /hpf (0-5)
--- NOTE | 2022-09-25 16:12 | NUR ---
SHIFT SUMMARY; PATIENT ARRIVED TO THE MED FLOOR THIS AM FROM THE ER. HE IS ORIENTED TO SELF. PER REPORT HE HAD BEEN SENT BY EMS FROM [facility] FOR POSSIBLE ASPIRATION PNEUMONIA. HE WAS RECENLTY DC'D FROM HOSPITAL ROOM 325 ON THE August. PATIENT IS CURRENTLY RECEIVING NS AT 100ML/HR IV ANTIBIOTICS OF UNASYN. REMAINS ON 4 LITERS O2. PATIENT DOES KEEP REMOVING NASAL CANNULA SO THIS RN SITS OUTSIDE OF ROOM AND REPEATEDLY CHECKING ON PATIENT. HE IS A FULL CODE AND HAS A PALLIATIVE CARE CONSULT. ULISES PALLIATIVE CARE RN NOTIFIED. PATIENT HAS A 20G RFA IV. HIS LEFT SIDE ARM IS FLACCID AND PATIENT HAS MINIMAL MOVEMENT TO LEFT LEG. HE FEELS PAIN IN HIS LEFT ANKLE. PICTURES IN CHART OF REDDENED AREA ON BUTTOCKS AND RIGHT ANKLE SCABBING AND DRY SKIN. HE ALSO HAS A HEALING DECUB TO BOTTOM OF LEFT FOOT. PER REPORT HE MAY HAVE VOMITTED OVER THE WEEKEND AT . PATIENT DOES HAVE A PEGG TUBE THAT WAS PLACED ON THE 09/20/22 SURGICALLY DURING LAST STAY AT [facility]. CONDOM CATHETER IS PLACED PER REPORT PATIENT IS A HEAVY WETTER. SUCTION SET UP AT BEDSIDE AND ORAL CARE IS PERFORMED IN ER PRIOR TO PATIENT ARRIVAL AND EVERY 4 HOURS ON MED FLOOR. WILL CONTINUE TO MONITOR THIS PATIENT CLOSELY FOR ANY WANTS OR NEEDS THAT COME UP PRIOR TO SHIFT CHANGE AND REPORT TO NOC SHIFT RN.
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
--- NOTE | 2022-09-26 05:01 | NUR ---
SHIFT SUMMARY PT ALERT. SPEECH GARBLED. L SIDED DEFICIT. BP STABLE. AFEBRILE. HR AFIB. INITIALLY 100-120'S. NIGHT WENT ON HR WOULD AVERAGE 110-130'S WHILE TACHYING UP TO 150'S AT TIMES. DR BEAN NOTIFIED, X1 DOSE OF IV LOPRESSOR ORDERED. HR BETWEEN 90-110'S SINCE. ON 4.5L NC SATS OVER 93%. COPIOUS AMOUNT OF SECRETIONS. PT ABLE TO COUGH SECRETIONS UP FROM LUNGS BUT UNABLE TO FULLY CLEAR W/O SUCTION. Q2 TURNS. WAHL IN PLACE DRAINING DARK COLORED URINE TO GRAVITY. IN BED SLEEPING WITH CALL ALARM AT SIDE, WILL CONTINUE TO MONITOR UNTIL REPORT GIVEN TO ONCOMING RN
[2022-09-26 06:39] LABS: Hematocrit 47.9 % (37.0-53.0); Hemoglobin 15.8 g/dL (13.5-17.5); Mean Corpuscular HGB 29.5 pg (26.0-34.0); Mean Corpuscular Volume 90 fL (80-100); Mean Platelet Volume 10.7 fL (9.1-12.4); Platelet Count 212 K/mm3 (150-400); RDW Coefficient Variation 13.2 % (11.7-14.2); RDW Standard Deviation 43.4 fL (35.1-46.3); Red Blood Cell Count 5.35 M/mm3 (4.30-5.90); White Blood Cell Count 15.72 K/mm3 (4.00-11.30)
[2022-09-26 06:56] LABS: Calcium, Blood 8.9 mg/dL (8.5-10.1); Creatinine, Blood 1.2 mg/dL (0.60-1.20)
--- NOTE | 2022-09-26 16:11 | NUR ---
Upon receing a referral for spiritual care, I visit pt. Pt tells me about his medical issues, his family and his frustrations with being strapped with physical limitations after being so active his whole life. Pt displays a wonderful sense of humor and kindness while in very challenging circumstances. He shares the pain of his regrets and bad decsions in life. We talk about God, ewelina and forgiveness. I suggest we might pray and pt asks if I would give him two. I reinforce helpful attitudes and perspectives, explore sources of meaning and forgiveness, hear confession and provide therapeutic listening, gentle senior vice president & general counsel and prayer. Pt responds well and displays eveidence of catharsis and increased peace. I will continue toremain available to pt and family.
--- NOTE | 2022-09-26 17:50 | NUR ---
PT DROWSY BUT AROUSABLE T/O SHIFT, PT APPEARS TO BE SLEEPING MOST OF THE DAY. PT REMAINS NPO PER SPEECH THERAPY ASSESSMENT THIS AM. METOPROLOL IV GIVEN ONCE THIS AM FOR HR 120-140s. EFFECTIVE. SEE VS. PT NEEDING ORAL-PHARENGEAL SUCTIONS FREQUENTLY T/O SHIFT D/T POOLING OF SECRETIONS THAT HE CANNOT CLEAR WITH HIS WEAK COUGH. DONALDO RN FROM PALLIATIVE CARE MET PT'S AND FAMILY AT BEDSIDE TO DISCUSS CODE STATUS AND GOALS OF CARE. SEE PALLIATIVE CARE NOTE FOR DETAILS. PT HAS NOT REPORTED NAUSEA T/O THE SHIFT. PT ABLE TO USE CALL LIGHT WITH HIS R HAND FOR NEEDS. CONDOM CATH REMOVED TODAY DUE TO LEAKAGE, ATTENDS IN PLACE AT THIS TIME. NO OTHER NEEDS IDENTIFIED AT THIS TIME. CALL LIGHT IN REACH, WILL CONTINUE TO MONITOR AND GIVE REPORT TO NOC SHIFT RN.
[2022-09-27 04:40] LABS: BASOPHILS ABSOLUTE AUTO 0.09 K/mm3 (0.00-0.23); BASOPHILS PERCENT AUTO 1 % (0-2); EOSINOPHILS ABSOLUTE AUTO 0.49 K/mm3 (0.00-0.68); EOSINOPHILS PERCENT AUTO 3 % (0-6); Hematocrit 50.6 % (37.0-53.0); IMMATURE GRAN ABSOLUTE AUTO 0.06 K/mm3 (0.00-0.10); IMMATURE GRAN PERCENT AUTO 0 % (0-1); LYMPHOCYTES ABSOLUTE AUTO 1.05 K/mm3 (0.84-5.20); LYMPHOCYTES PERCENT AUTO 6 % (21-46); MONOCYTES ABSOLUTE AUTO 1.53 K/mm3 (0.16-1.47); MONOCYTES PERCENT AUTO 9 % (4-13); Mean Corpuscular HGB 29.2 pg (26.0-34.0); Mean Corpuscular HGB Conc 31.6 g/dL (31.5-36.5); Mean Corpuscular Volume 92 fL (80-100); Mean Platelet Volume 11.3 fL (9.1-12.4); NEUTROPHILS ABSOLUTE AUTO 13.64 K/mm3 (1.96-9.15); NEUTROPHILS PERCENT AUTO 81 % (41-73); Platelet Count 179 K/mm3 (150-400); RDW Standard Deviation 44.3 fL (35.1-46.3); Red Blood Cell Count 5.48 M/mm3 (4.30-5.90); White Blood Cell Count 16.86 K/mm3 (4.00-11.30)
[2022-09-27 04:50] LABS: Albumin, Blood 2.7 g/dL (3.4-5.0); Anion Gap 8 mmol/L (6-16); Blood Urea Nitrogen 39 mg/dL (8-24); Bun/Creatinine Ratio 36.1 (12.0-20.0); CO2, Blood 29 mmol/L (21-32); Chloride, Blood 107 mmol/L (98-108); Creatinine, Blood 1.08 mg/dL (0.60-1.20); Glomerular Filtration Rate 70 (60-); Glucose, Blood 119 mg/dL (70-99); Phosphorus, Blood 2.4 mg/dL (2.5-4.9); Potassium, Blood 3.9 mmol/L (3.5-5.5); Sodium, Blood 144 mmol/L (136-145)
--- NOTE | 2022-09-27 05:36 | NUR ---
SHIFT SUMMARY NO ACUTE EVENTS THIS SHIFT. PT IS ALERT. SPEECH GARBLED BUT ABLE TO COMMUNICATE IN SHORT SENTENCES. AFEBRILE. HR AFIB 100-120'S. BP STABLE. ON 1L NC SATS OVER 95%. LESS SECRETIONS THAN PREVIOUS EVENING. DEEP SUCTIONING Q2-3 HRS. NS INFUSING AT 100ML/HR. CONDOM CATH IN PLACE DRAINING TO GRAVITY. SLEEPING WITH CALL ALARM AT SIDE, WILL CONTINUE TO MONITOR UNTIL REPORT GIVEN TO ONCOMING RN
--- NOTE | 2022-09-27 11:03 | NUR ---
care note HR NOTED TO HIT 150 PER TELE REPORT, DR. ERNST MADE AWARE. WILL CONTINUE TO MONITOR.
--- NOTE | 2022-09-27 16:12 | NUR ---
Pt has recent CVA history. His left side is affected. He was admitted initially here at [facility] but was transferred to [facility] for rehab. It was at that point he fell out of bed at and was transferred back to [facility]. He's currently in PCU with a feeding tube in place, same as prior admission due to aspiration risk. Initially met with pt and family yesterday and they were considering comfort care, as pt continues to want to eat and drink by mouth. However, today, he is not so sure. He and family are going to consider the options. Meanwhile, ST reports being uncomfortable attempting trying another swallow eval as the barium swallow showed severe risk of aspiration.
--- NOTE | 2022-09-27 17:28 | NUR ---
SHIFT SUMMARY PT IS ALERT AND ORIENTED X 4, SPEECH IS GARBLED FROM HX. OF CVA BUT HE IS ABLE TO MAKE HIS NEEDS KNOWN. HE HAS BEEN SOMNOLENT DURING SHIFT BUT WAKES EASILY TO VERBAL STIMULI. SPO2 MAINTAINED >95% VIA 2-3L NV, DEEP SUCTION ALSO PROVIDED TO CLEAR SECRETIONS. PT DOES HAVE OCCATIONAL COUGH NOTED. HE HAS DENIED FEELINGS OF CHEST PAIN/PRESSURE BUT REPORTED PAIN IN SCROTUM AREA. SCROTUM/TESTICLES ARE RED/SWOLLEN, DR. MARIA MADE AWARE. BP HAS BEEN STABLE, HR IS AFIB 110'S-120'S, HR DID PEAK AT 150, MADE AWARE, SEE EMAR FOR MANAGEMENT. PEG TUBE IS IN PLACE AND CLAMPED. FREQUENT ORAL CARE PROVIDED DUR TO NPO STATUS WELL PT BEING MOUTH BREATHER. Q2 TURNING IMPLIMENTED TO PREVENT SKIN BREAKDOWN. IV IN R FOREARM IS INFUSING PER EMAR. FAMILY WAS AT BEDSIDE THIS AM WELL DONALDO FROM PALLIATIVE CARE. PT NOW APPEARS TO BE SLEEPING COMFORTABLY. BED ALARM ON, CALL LIGHT IN REACH. SIDERAILS UP APPROPRIATE.
[2022-09-28 04:16] LABS: BASOPHILS ABSOLUTE AUTO 0.08 K/mm3 (0.00-0.23); BASOPHILS PERCENT AUTO 1 % (0-2); EOSINOPHILS ABSOLUTE AUTO 0.36 K/mm3 (0.00-0.68); EOSINOPHILS PERCENT AUTO 3 % (0-6); Hematocrit 47.5 % (37.0-53.0); Hemoglobin 15.1 g/dL (13.5-17.5); IMMATURE GRAN ABSOLUTE AUTO 0.05 K/mm3 (0.00-0.10); IMMATURE GRAN PERCENT AUTO 0 % (0-1); LYMPHOCYTES ABSOLUTE AUTO 1.04 K/mm3 (0.84-5.20); LYMPHOCYTES PERCENT AUTO 7 % (21-46); MONOCYTES ABSOLUTE AUTO 1.32 K/mm3 (0.16-1.47); MONOCYTES PERCENT AUTO 9 % (4-13); Mean Corpuscular HGB 29.3 pg (26.0-34.0); Mean Corpuscular HGB Conc 31.8 g/dL (31.5-36.5); Mean Corpuscular Volume 92 fL (80-100); Mean Platelet Volume 10.9 fL (9.1-12.4); NEUTROPHILS ABSOLUTE AUTO 11.58 K/mm3 (1.96-9.15); NEUTROPHILS PERCENT AUTO 80 % (41-73); Platelet Count 208 K/mm3 (150-400); RDW Coefficient Variation 12.9 % (11.7-14.2); RDW Standard Deviation 44.5 fL (35.1-46.3); Red Blood Cell Count 5.16 M/mm3 (4.30-5.90); White Blood Cell Count 14.43 K/mm3 (4.00-11.30)
[2022-09-28 04:41] LABS: Albumin, Blood 2.5 g/dL (3.4-5.0); Anion Gap 6 mmol/L (6-16); Blood Urea Nitrogen 33 mg/dL (8-24); Bun/Creatinine Ratio 36.5 (12.0-20.0); CO2, Blood 29 mmol/L (21-32); Calcium, Blood 9.2 mg/dL (8.5-10.1); Chloride, Blood 109 mmol/L (98-108); Glomerular Filtration Rate 87 (60-); Glucose, Blood 109 mg/dL (70-99); Phosphorus, Blood 2.1 mg/dL (2.5-4.9); Potassium, Blood 3.7 mmol/L (3.5-5.5); Sodium, Blood 144 mmol/L (136-145)
--- NOTE | 2022-09-28 05:14 | NUR ---
SHIFT SUMMARY PT ALERT AND ORIENTED. GARBLED SPEECH BUT ABLE TO MAKE NEEDS KNOWN. AFEBRILE. BP STABLE. HR AFIB 90-130'S. TACHY EARLY THIS AM TO 140/[address] BEAN NOTIFIED. X1 DOSE OF IV LOPRESSOR ORDERED AND HR DOWN TO 90-110'S. Q2 TURNS. INCONTINENT. FREQUENT SUCTIONING NEEDED DUE TO EXCESS SECRETIONS. IN BED SLEEPING WITH CALL ALARM AT SIDE, WILL CONTINUE TO MONITOR UNTIL REPORT GIVEN TO ONCOMING RN
[2022-09-28 11:18] LABS: Source, Urine Foley catheter
[2022-09-28 11:33] LABS: Appearance, Urine Clear (Clear); Bilirubin, Urine Neg (Neg); Blood, Urine 2+ (Neg); Color, Urine Yellow (P-Yellow); Glucose Qualitative, Urine Neg (Neg); Ketones, Urine Neg (Neg); Leukocyte Esterase, Urine Neg (Neg); Nitrite, Urine Neg (Neg); Protein, Urine 1+ (Neg); Urobilinogen, Urine NORM (Normal)
[2022-09-28 11:54] LABS: Bacteria Few /hpf; Red Blood Cells, Urine 0-2 /hpf (0-2); Squamous Epithelial Cells Rare /hpf (Few)
--- NOTE | 2022-09-28 13:00 | NUR ---
CARE NOTE T.F STARTED PER EMAR ORDERS AT APPROX. 1230 AT STARTING RATE OF 25ML/HR W/ 40ML FLUSHES Q1. PT HAS DENIED FEELINGS OF NAUSEA/ABD DISCOMFORT. WILL CONTINUE TO MONITOR TOLERANCE.
--- NOTE | 2022-09-28 16:59 | NUR ---
SHIFT SUMMARY PT IS ALERT AND ORIENTED X 4, HE DOES HAVE DYSPHAGIA FROM PREVIOUS HX OF RIGHT SIDED STROKE, LEFT SIDED DEFICITS NOTED. HE IS ABLE TO MAKE HIS NEEDS KNOWN AND FOLLOW DIRECTION. HE WAS SOMNOLENT FOR FIRST HALF OF SHIFT AND HAS SINCE BEEN MORE ALERT, FAMILY HAS BEEN AT BEDSIDE ON AND OFF DURING SHIFT. BP STABEL, HR HAS RANGED FROM 80-110'S AND PEAKED IN 150'S, DR. MAGANA MADE AWARE, SEE EMAR FOR HR MANAGEMENT. SPO2 MAINTAINED >95% VIA 1-2L NC. HE HAS DENIED FEELINGS OF CHEST PAIN/PRESSURE BUT REPORTED DISCOMFORT IN SCROTUM AREA. DR. MAGANA ALSO MADE AWARE OF REDNESS/IRRITATION LOCATED ON SCROTUM/TESTICLES AND PENIS, PLAN TO LEAVE SKIN OPEN TO AIR. WAHL CATHETER ALSO PLACED AND IS DRAINING TO GRAVITY RED TINGED URINE. WAHL PLACED TO KEEP URINE OFF OF SKIN, ALSO PT IS INCONTINENT AND CONDOM CATHETER WOULD NOT STAY IN PLACE. TUBE FEEDING STARTED TODAY PER ORDERS AND IS CURRENTLY RUNNING AT 25ML/HR W/ 40ML FLUSHES Q1. ORDERS TO INCREASE RATE IF PT CAN TOLERATE FEEDING 8 HOURS AFTER TF STARTED. IV IN R AR INFUSING PER EMAR ORDERS. NO OTHER ACUTE CHANGES NOTED. PT NOW VISITING W/ FAMILY AT BEDSIDE. CALL LIGHT IN REACH.
--- NOTE | 2022-09-28 17:07 | NUR ---
Pt was notably more lethargic today, may be from lack of nutrition. Tube feeding being started as pt has indicated he would like to remain a full code yesterday. However, he also frequently asks for water and soda, appears to lack foresite into the consequences of drinking by mouth. Reminders given when he asked. ST remains unable to work with pt at this time due to lethargy, wet cough and lack of following commands. Pt's also appears to be experiencing memory issues as she will repeat sentences frequently and confuse staff members easily. She is alert and pleasant, but it does appear unlikely she would be able to care for pt at home if he were discharged. Palliative care will continue to provide emotional support and explore options with pt and family, especially if pt's swallow and cognition continues to decline.
[2022-09-29 03:52] LABS: BASOPHILS ABSOLUTE AUTO 0.08 K/mm3 (0.00-0.23); BASOPHILS PERCENT AUTO 1 % (0-2); EOSINOPHILS ABSOLUTE AUTO 0.27 K/mm3 (0.00-0.68); EOSINOPHILS PERCENT AUTO 2 % (0-6); Hematocrit 46.7 % (37.0-53.0); Hemoglobin 14.8 g/dL (13.5-17.5); IMMATURE GRAN ABSOLUTE AUTO 0.05 K/mm3 (0.00-0.10); IMMATURE GRAN PERCENT AUTO 0 % (0-1); LYMPHOCYTES ABSOLUTE AUTO 1.24 K/mm3 (0.84-5.20); LYMPHOCYTES PERCENT AUTO 10 % (21-46); MONOCYTES PERCENT AUTO 10 % (4-13); Mean Corpuscular HGB 29.1 pg (26.0-34.0); Mean Corpuscular HGB Conc 31.7 g/dL (31.5-36.5); Mean Corpuscular Volume 92 fL (80-100); Mean Platelet Volume 10.7 fL (9.1-12.4); NEUTROPHILS ABSOLUTE AUTO 9.64 K/mm3 (1.96-9.15); NEUTROPHILS PERCENT AUTO 77 % (41-73); Platelet Count 190 K/mm3 (150-400); RDW Coefficient Variation 12.8 % (11.7-14.2); RDW Standard Deviation 43.5 fL (35.1-46.3); Red Blood Cell Count 5.09 M/mm3 (4.30-5.90); White Blood Cell Count 12.48 K/mm3 (4.00-11.30)
[2022-09-29 04:19] LABS: Albumin, Blood 2.4 g/dL (3.4-5.0); Albumin/Globulin Ratio 0.6 (0.8-1.8); Bilirubin, Total 0.9 mg/dL (0.1-1.0); Bun/Creatinine Ratio 36.6 (12.0-20.0); Calcium, Blood 8.8 mg/dL (8.5-10.1); Creatinine, Blood 0.85 mg/dL (0.60-1.20); Globulin, Blood 4.3 g/dL (2.2-4.0); Phosphorus, Blood 2.2 mg/dL (2.5-4.9); Potassium, Blood 3.4 mmol/L (3.5-5.5); Total Protein, Blood 6.7 g/dL (6.4-8.2)
--- NOTE | 2022-09-29 04:39 | NUR ---
SHIFT SUMMARY: PT REMAINS ALERT AND ORIENTED X3, ABLE TO FOLLOW COMMANDS AND MAKE NEEDS KNOWN, MILDLY FORGETFUL. AFEBRILE, BP STABLE, HR AFIB 90'S, ON 2L NC SATING >94%. RESPIRATIONS EVEN AND UNLABORED. PT WITH WEAK COUGH EFFORT, HAVING COPIOUS AMOUNTS OF THICK SECRETIONS, ORAL CARE DONE Q2. LEFT SIDED FACIAL DROOP AND WEAKNESS NOTED FROM PREVIOUS TIA. PT HAS PEG TUBE WITH CONTINUOUS FEEDINGS. CURRENTLY AT 45 ML/HR, ORDERS TO INCREASE 10-20 ML Q8 FOR GOAL RATE OF 70 ML/HR. NS GTT @100 ML/HR. WAHL CATHETER IN PLACE DRAINING RED TINGED URINE TO GRAVITY. NO BM THIS SHIFT. REPOS Q2. CALL LIGHT IN REACH, BED IN LOW, WILL REPORT TO ONCOMING RN.
--- NOTE | 2022-09-29 17:36 | NUR ---
NO ACUTE EVENTS T/O THE SHIFT. PT REQUIRED PHARENGEAL SUCTIONING SEVERAL TIMES T/O THE DAY WITH RETURN OF THICK WHITE SECRETIONS. PT COUGH REMAINS VERY WEAK AND PT IS UNABLE TO CLEAR HIS OWN SECRETIONS. DR MAGANA STARTED GLYCOPYRROLATE TO DECREASE SALIVA PRODUCTION, UNSURE AT THIS TIME IF IT HAS BEEN EFFECTIVE. DR MAGANA SPOKE DIRECTLY WITH PT TODAY, WHO IS ALERT AND ORIENTED X 3, ABOUT HIS CODE STATUS. PT WISHES TO REMAIN A FULL CODE AT THIS TIME. PT'S FAMILY IN TO VISIT THIS AFTERNOON. NEW OPEN AREA OF SKIN DISCOVERED IN [facility]CO TAYLOR, PHOTO IN CHART FOR DOCUMENTATION. PT WORKED WITH PT/OT/ST TODAY. SEE DOCUMENTED ASSESSMENTS AND VS. PT RESTING WITH EYES CLOSED AT THIS TIME, RESPIRATIONS EVEN AND UNLABORED, WET CONGESTED COUGH, CALL LIGHT IN REACH ON RIGHT SIDE. WILL CONTINUE TO MONITOR AND GIVE REPORT TO NOC SHIFT RN.
--- NOTE | 2022-09-30 06:46 | NUR ---
SUMMARY PT REMAINS ALERT, RESPONSIVE & ANSWERING QUESTIONS APPROPRIATLY, PT REPOSITIONED Q2 HRS, ORAL CARE & SUCTIONING PRN, SECRETIONS ARE THICK/WHITE, VSS. PT HAS HAD MULTIPLE LOOSE BLACK/BROWN STOOLS, PM COLACE DOSE HELD, 900 ML'S RED URINE NOTED IN [facility], PATENT, NO CLOTES NOTED. TUBE FEED INFUSING @ 65ML/HR, ABD REMAINS SOFT/NON TENDER. NO OTHER ACUTE CHANGES NOTE, CALL LIGHT IN REACH. WILL REPORT TO DAY RN.
[2022-09-30 09:10] LABS: BASOPHILS ABSOLUTE AUTO 0.08 K/mm3 (0.00-0.23); BASOPHILS PERCENT AUTO 1 % (0-2); EOSINOPHILS ABSOLUTE AUTO 0.39 K/mm3 (0.00-0.68); EOSINOPHILS PERCENT AUTO 3 % (0-6); Hematocrit 44.9 % (37.0-53.0); Hemoglobin 14.3 g/dL (13.5-17.5); IMMATURE GRAN ABSOLUTE AUTO 0.04 K/mm3 (0.00-0.10); IMMATURE GRAN PERCENT AUTO 0 % (0-1); LYMPHOCYTES ABSOLUTE AUTO 1.49 K/mm3 (0.84-5.20); LYMPHOCYTES PERCENT AUTO 12 % (21-46); MONOCYTES ABSOLUTE AUTO 0.95 K/mm3 (0.16-1.47); MONOCYTES PERCENT AUTO 8 % (4-13); Mean Corpuscular HGB 28.9 pg (26.0-34.0); Mean Corpuscular HGB Conc 31.8 g/dL (31.5-36.5); Mean Corpuscular Volume 91 fL (80-100); Mean Platelet Volume 11.2 fL (9.1-12.4); NEUTROPHILS ABSOLUTE AUTO 9.06 K/mm3 (1.96-9.15); NEUTROPHILS PERCENT AUTO 76 % (41-73); Platelet Count 188 K/mm3 (150-400); RDW Coefficient Variation 12.8 % (11.7-14.2); RDW Standard Deviation 42.5 fL (35.1-46.3); Red Blood Cell Count 4.94 M/mm3 (4.30-5.90); White Blood Cell Count 12.01 K/mm3 (4.00-11.30)
[2022-09-30 09:25] LABS: Bun/Creatinine Ratio 28.3 (12.0-20.0); Calcium, Blood 8.4 mg/dL (8.5-10.1); Creatinine, Blood 0.81 mg/dL (0.60-1.20); Potassium, Blood 3.5 mmol/L (3.5-5.5)
--- NOTE | 2022-09-30 17:41 | NUR ---
ASSUMED CARE OF PT AT 0700 THIS AM. NO ACUTE EVENTS T/O THE DAY. ADDITION OF GLYCOPURROLATE HAS DECREASED PT'S ORAL SECRETIONS SIGNIFICANTLY, ONLY REQUIRING SUCTION ONCE THIS SHIFT. TUBE FEEDING IS RUNNING AT GOAL, PT TOLERATING WELL, NO RESIDUALS NOTED. PT UP TO RECLINER FOR A FEW HOURS TODAY, PT'S FAMILY VISITED AND WERE UPDATED ON HIS CONDITION. WAHL CONTINUES TO DRAIN DRK RED URINE, DR MAGANA IS AWARE. PT HAS BEEN DROWSY ALL SHIFT, AWAKENS TO NAME AND QUICKLY FALLS BACK TO SLEEP. TURNED AND REPOSITIONED FREQUENTLY T/O THE DAY. OF NOTE, A FEW SHORT RUNS OF SVT ON TELEMETRY TODAY, NOT SUSTAINED AND PT ASYMPTOMATIC. NO CHANGES TO PT'S OVERALL CONDITION. FREQUENT LOOSE STOOLS, LIKELY RELATED TO TUBE FEEDING. CALL LIGHT IN REACH AT THIS TIME, WILL CONTINUE TO MONITOR AND GIVE REPORT TO CHEPE DARDEN RN.
[2022-10-01 03:51] LABS: BASOPHILS ABSOLUTE AUTO 0.07 K/mm3 (0.00-0.23); BASOPHILS PERCENT AUTO 1 % (0-2); EOSINOPHILS ABSOLUTE AUTO 0.51 K/mm3 (0.00-0.68); EOSINOPHILS PERCENT AUTO 5 % (0-6); Hematocrit 45.1 % (37.0-53.0); Hemoglobin 14.8 g/dL (13.5-17.5); IMMATURE GRAN ABSOLUTE AUTO 0.04 K/mm3 (0.00-0.10); IMMATURE GRAN PERCENT AUTO 0 % (0-1); LYMPHOCYTES ABSOLUTE AUTO 1.32 K/mm3 (0.84-5.20); LYMPHOCYTES PERCENT AUTO 12 % (21-46); MONOCYTES ABSOLUTE AUTO 0.99 K/mm3 (0.16-1.47); MONOCYTES PERCENT AUTO 9 % (4-13); Mean Corpuscular HGB 29.4 pg (26.0-34.0); Mean Corpuscular HGB Conc 32.8 g/dL (31.5-36.5); Mean Corpuscular Volume 90 fL (80-100); Mean Platelet Volume 11.2 fL (9.1-12.4); NEUTROPHILS PERCENT AUTO 72 % (41-73); Platelet Count 188 K/mm3 (150-400); RDW Coefficient Variation 12.9 % (11.7-14.2); RDW Standard Deviation 42.3 fL (35.1-46.3); Red Blood Cell Count 5.04 M/mm3 (4.30-5.90); White Blood Cell Count 10.63 K/mm3 (4.00-11.30)
[2022-10-01 04:15] LABS: Bun/Creatinine Ratio 28.2 (12.0-20.0); Calcium, Blood 8.7 mg/dL (8.5-10.1); Creatinine, Blood 0.75 mg/dL (0.60-1.20); Potassium, Blood 3.7 mmol/L (3.5-5.5)
--- NOTE | 2022-10-01 04:57 | NUR ---
SHIFT SUMMARY PT IS A&OX4, HAS BEEN FAIRLY DROWSY BUT RESPONDS TO VERBAL RESPONSES, HAS BEEN 70-90'S AFIB ON TELE, BP STABLE, AND IS NOW ON RA W/ SP02 >93%. HE STARTED OUT ON THE SHIFT ON 1L NC BUT WAS TITRATED DOWN. PT HAS HAD MANY INC LOOSE/WATERY STOOLS AND A RECTAL TUBE WAS PLACED DUE TO THE SKIN BREAK DOWN ON HIS BOTTOM. PT WAS RECENTLY ADMITTED FOR CVA AND HAS LEFT SIDED DEFICIT. HE HAS A WAHL DRAINING TO GRAVITY AND THE COLOR IS RED. H&H IS STABLE. PT FOLLOWS COMMANDS AND USES HIS CALL LIGHT APPROPRIATELY. BED IS IN LOW, CALL LIGHT IS IN REACH, AND THREE SIDE RAILS ARE UP. HIS DAUGHTER YANIRA CALLED AT 0500 AND WAS GIVEN AN UPDATE. WILL CONTINUE TO MONITOR UNTIL REPORT IS GIVEN TO THE ONCOMING SHIFT RN.
--- NOTE | 2022-10-01 17:36 | NUR ---
NO ACUTE EVENTS T/O THE SHIFT. PT UP TO RECLINER CHAIR VIA CEILING LIFT FOR A FEW HOURS VISITING WITH FAMILY TODAY. URINE COLOR HAS CHANGED FROM DARK RED YESTERDAY TO DARK BROWN TODAY. VERY LITTLE OUTPUT IN RECTAL TUBE. PEG TUBE FEEDINGS CHANGED FROM CONTINUOUS TO BOLUS PER DR MAGANA. PT HAS TOLERATED WELL SO FAR THIS SHIFT. LESS ORAL SECRETIONS AND NEED FOR SUCTIONING T/O THE DAY, ONLY SUCTIONED PT ONCE. PT MORE AWAKE, ALERT AND INTERACTIVE WITH FAMILY IN ROOM TODAY. NO CHANGES TO PT'S OVERALL CONDITION NOTED. PT ABLE TO USE CALL LIGHT FOR NEEDS, CALL LIGHT IN REACH, WILL CONTINUE TO MONITOR AND GIVE REPORT TO NOC SHIFT RN.
--- NOTE | 2022-10-01 21:28 | NUR ---
TF BOLUS CONVERSTAION W/ DR. NOAM MAGANA PUT THE PTS TF FOR 474ML/60 MINS Q 4HR. DAY SHIFT HAD SOME CONCERNS OF INCREASED ASPIRATION RISK DUE TO THE PT'S HX OF EMESIS ON THE 474ML/60MIN DOSE. SHE SET THE TF SETTINGS TO 225ML/HR W/ FLUSH OF 100ML/2HR. THE FEEDING STOPPED AT 0832. DR. SANTACRUZ SAID TO GIVE THE LAST FEEDING DOSE THE DAY SHIFT RN HAD IT AND HAVE DIETITION REEVALUATE IN THE MORNING. SEE NOTES FOR ANY UPDATES.
[2022-10-02 01:21] LABS: C DIFFICILE DNA NEGATIVE (Negative)
[2022-10-02 05:00] LABS: BASOPHILS ABSOLUTE AUTO 0.09 K/mm3 (0.00-0.23); BASOPHILS PERCENT AUTO 1 % (0-2); EOSINOPHILS ABSOLUTE AUTO 0.57 K/mm3 (0.00-0.68); EOSINOPHILS PERCENT AUTO 5 % (0-6); Hematocrit 44.1 % (37.0-53.0); Hemoglobin 14.2 g/dL (13.5-17.5); IMMATURE GRAN PERCENT AUTO 1 % (0-1); LYMPHOCYTES ABSOLUTE AUTO 1.44 K/mm3 (0.84-5.20); LYMPHOCYTES PERCENT AUTO 13 % (21-46); MONOCYTES ABSOLUTE AUTO 1.03 K/mm3 (0.16-1.47); MONOCYTES PERCENT AUTO 9 % (4-13); Mean Corpuscular HGB 28.9 pg (26.0-34.0); Mean Corpuscular HGB Conc 32.2 g/dL (31.5-36.5); Mean Corpuscular Volume 90 fL (80-100); Mean Platelet Volume 11.2 fL (9.1-12.4); NEUTROPHILS ABSOLUTE AUTO 7.91 K/mm3 (1.96-9.15); NEUTROPHILS PERCENT AUTO 71 % (41-73); Platelet Count 217 K/mm3 (150-400); RDW Coefficient Variation 12.8 % (11.7-14.2); RDW Standard Deviation 42.4 fL (35.1-46.3); Red Blood Cell Count 4.91 M/mm3 (4.30-5.90); White Blood Cell Count 11.14 K/mm3 (4.00-11.30)
[2022-10-02 05:17] LABS: Bun/Creatinine Ratio 32.7 (12.0-20.0); Calcium, Blood 8.8 mg/dL (8.5-10.1); Creatinine, Blood 0.74 mg/dL (0.60-1.20); Potassium, Blood 3.8 mmol/L (3.5-5.5)
--- NOTE | 2022-10-02 05:26 | NUR ---
SHIFT SUMMARY PT IS A&OX4, USES THE CALL LIGHT APPROPRIATELY, HAS BEEN AFIB 90'S-110'S, AND HE HAS BEEN ON RA MOST OF THE NIGHT. AT ONE POINT IN THE NIGHT THE PT HAD TO BE PUT ON 1L NC DUE TO SPO2 SUSTAINING IN THE UPPER 80'S. HE IS BACK ON RA W/ SP02 >90%. HE DENIES SOB AND ANGINA, AND HIS SUCTION FREQUENCY HAS DECREASED. ORAL CARE AND REPOSITIONING HAVE BEEN DONE EVERY TWO HOURS THIS SHIFT. A STOOL SAMPLE WAS DONE TO RULE OUT C-DIFF AND IT CAME BACK NEGATIVE. PT RESTING IN THE ROOM WITH BED IN LOW, CALL LIGHT IN REACH, AND THREE SIDE RAILS UP. WILL CONTINUE TO MONITOR UNTIL SHIFT REPORT IS GIVEN TO THE ONCOMING SHIFT RN. SEE NOTES FOR ANY UPDATES. DAUGHTER YANIRA CALLED AND WAS UPDATED ABOUT 0530 TODAY.
--- NOTE | 2022-10-02 11:16 | NUR ---
Patient is lying in bed and alert. Pt's spouse, Cathryn and son are bedside. Cathryn encourages me to visit and pray with pt, which I gladly do. I then discuss with Cathryn her concerns and fears and provide therapeutic listening, anxiety containment and a calming presence. Pt and family respond well to all interventions and show signs of greater hope and an elevated mood. I will continue to remain available to pt and family.
--- NOTE | 2022-10-02 17:10 | NUR ---
SHIFT SUMMARY S/P ASP PNEUMONIA, A/O BUT OCCATIONALLY FORGETFUL, SOME GARBLED SPEECH R/T RECENT CVA, L SIDE DEFICITS IN UPPER AND LOWER EXTREMITIES, ABLE TO COMMUNICATE NEEDS OTHER THAN ASKING FOR HELP TO WALK TO THE BATHROOM, DOES WELL WITH REDIRECTION AND REMINDING HIM ABOUT HIS RECTAL TUBE AND WAHL. PLAN TO DC AFTER BM FIRMS UP (CURRENTLY LOOSE). PER FLAVOR EXTRACTOR, MALE BED AVAILABLE SUNDAY. NO ACUTE EVENTS THIS SHIFT, CALL [facility] IN [place], WILL CTM AND REPORT TO NOC RN.
[2022-10-03 05:12] LABS: BASOPHILS ABSOLUTE AUTO 0.09 K/mm3 (0.00-0.23); BASOPHILS PERCENT AUTO 1 % (0-2); EOSINOPHILS ABSOLUTE AUTO 0.41 K/mm3 (0.00-0.68); EOSINOPHILS PERCENT AUTO 4 % (0-6); Hematocrit 42.1 % (37.0-53.0); Hemoglobin 13.6 g/dL (13.5-17.5); IMMATURE GRAN ABSOLUTE AUTO 0.09 K/mm3 (0.00-0.10); IMMATURE GRAN PERCENT AUTO 1 % (0-1); LYMPHOCYTES ABSOLUTE AUTO 1.34 K/mm3 (0.84-5.20); LYMPHOCYTES PERCENT AUTO 14 % (21-46); MONOCYTES ABSOLUTE AUTO 0.81 K/mm3 (0.16-1.47); MONOCYTES PERCENT AUTO 9 % (4-13); Mean Corpuscular HGB 28.8 pg (26.0-34.0); Mean Corpuscular HGB Conc 32.3 g/dL (31.5-36.5); Mean Corpuscular Volume 89 fL (80-100); Mean Platelet Volume 11.3 fL (9.1-12.4); NEUTROPHILS ABSOLUTE AUTO 6.67 K/mm3 (1.96-9.15); NEUTROPHILS PERCENT AUTO 71 % (41-73); Platelet Count 189 K/mm3 (150-400); RDW Coefficient Variation 12.7 % (11.7-14.2); RDW Standard Deviation 41.2 fL (35.1-46.3); Red Blood Cell Count 4.73 M/mm3 (4.30-5.90); White Blood Cell Count 9.41 K/mm3 (4.00-11.30)
[2022-10-03 05:47] LABS: Albumin, Blood 2.3 g/dL (3.4-5.0); Anion Gap 6 mmol/L (6-16); Blood Urea Nitrogen 21 mg/dL (8-24); Bun/Creatinine Ratio 27.8 (12.0-20.0); CO2, Blood 28 mmol/L (21-32); Calcium, Blood 8.6 mg/dL (8.5-10.1); Chloride, Blood 105 mmol/L (98-108); Creatinine, Blood 0.76 mg/dL (0.60-1.20); Glomerular Filtration Rate 92 (60-); Glucose, Blood 137 mg/dL (70-99); Phosphorus, Blood 2.9 mg/dL (2.5-4.9); Potassium, Blood 3.8 mmol/L (3.5-5.5); Sodium, Blood 139 mmol/L (136-145)
--- NOTE | 2022-10-03 06:50 | NUR ---
SHIFT SUMMARY PATIENT ALERT, ORIENTED, GARBLED/SLURRED SPEECH D/T STROKE, MAKES NEEDS KNOWN TO STAFF. VSS, PATIENT REMAINS ON RA T/O NIGHT. DENIES CHEST PAIN OR PRESSURE. BOLUS FEEDS PER ORDER THROUGH PEG TUBE. WALH IN PLACE DRAINING YELLOW URINE TO GRAVITY. RECTAL TUBE IN PLACE WITH BROWN STOOL IN TUBE. NO CHANGES THIS SHIFT. WILL REPORT TO DAY SHIFT RN.
--- NOTE | 2022-10-03 08:15 | NUR ---
AM assessment: Assumed care of patient. A/Ox4. Speech is slow but clear. L side facial droop noted. L arm and L leg flacid. Follows comands with R arm. LS diminished, HR irregular, tele shows afib. BT positive. Rectal tube in place draining very soft, brown stool. Frank cath draining yellow urine with blood tinge. Pt C/O pain in his "butt". Pt has very excoriated, red buttock, groin and coccyx. Peg tube clamped at this time with orders for bolus feedings. No other needs at this time. Call light in reach. Will continue to monitor.
--- NOTE | 2022-10-03 17:49 | NUR ---
Shift Summary: Pt resting in bed at this time. Worked with ST this AM. Still strict NPO. Tolerated bolus tube feedings. Rectal tube was replaced at around 1500. Draining loose, brown stool. Frank cath still in place and draining dark urine. No changes in facial droop or L side deficits. VSS thorughout shift. Will report to night RN. Call light in reach.
--- NOTE | 2022-10-04 06:01 | NUR ---
ASSISTANT PRESS OPERATOR SUMMARY PT IS ALERT AND ORIENTED COMMUNICATING APPROPRIATELY W STAFF DESPITE HIS SLUURED SPEECH. PT HAS MAINTAINED O2 SATS >92% ON RM AIR THIS SHIFT. BP WNL AND STABLE. TELE SHOWING AFIB 90'S-100'S THIS SHIFT. PT STILL PASSING LOOSE STOOL BUT IT APPEARS TO BE THICKENING. WAHL PATENT AND DRAINING CLEAR NIKOS URINE THIS SHIFT. BOLUS TUBE FEEDS GIVEN PER ORDER. WILL REPORT TO ONCOMING RN.
--- NOTE | 2022-10-04 17:22 | NUR ---
SHIFT SUMMARY ASSUMED CARE AT 0700, A/A/OX5. OFTEN SLEEPY THROUGHOUT DAY BUT EASILY WAKES TO VERBAL STIMULI. LEFT SIDE FLACCID FROM PREVIOUS CVA. Q 2 TURNS DURING SHIFT. MEPILEX TO COCCYX, BUTTOX EXCORIATED, PINK CREAM APPLIED AT EACH ATTENDS CHANGE. RECTAL TUBE IN PLACE DRAINING TO GRAVITY. LEAKAGE AT TIMES AROUND TUBE, CLOSE MONITORING AND FREQUENT ATTENDS CHANGES. WAHL IN PLACE DRAINING TO GRAVITY. NPO WITH TUBE FEED BOLUS. MEDS PER PEG TUBE. VSS, NO ACUTE MEDICAL CHANGES. WILL CONTINUE TO MONITOR AND TREAT UNTIL CHANGE OF SHIFT.
--- NOTE | 2022-10-04 20:37 | NUR ---
TRANSFER: PCU 1 TRANSFERRED TO [facility]. REPORT GIVEN TO BRANDT Barnes RN. ALL BELONGINGS W/ PT.
--- NOTE | 2022-10-04 22:19 | NUR ---
REPORT FROM MORAIMA MARCANO RN. PT ARRIVED TO UNIT FROM PCU VIA BED TRANSFER. WAHL PATENT AND DRAINING, PEG TUBE FEEDING RUNNING AT 400mL/HR W/ 80mL FLUSH Q2HR. SUCTION SET UP IN ROOM FOR Q2H SUCTION AND REPOSITIONING. IV RT WRIST RUNNING TKO. RECTAL TUBE PATENT WITH SOME LEAKAGE AROUND IT. AWAITING SECOND RN FOR SKIN ASSESSMENT.
--- NOTE | 2022-10-05 09:05 | NUR ---
PHARMACY DISTRICT MANAGER SUMMARY: A&Ox4. PLEASANT AND COOPERATIVE WITH CARE. VSS. PEG TUBE PATENT AND FLUSHES, COMPLETING LAST FEEDING OF THE EVENING SHORTLY AFTER ARRIVING TO THE UNIT. WAHL PATENT AND DRAINING TO GRAVITY. RECTAL TUBE PATENT AND DRAINING THOUGH LIQUID STOOL IS LEAKING OUT AROUND THE TUBE. EXCORIATIONS NOTED ON BUTTOCK AND SACRUM; FOAM DRESSING AND MEPILEX APPLIED AFTER PICTURES TAKEN. REPOSITION Q2H. C/O EXCESSIVE SECRETIONS; REPOSITION AND SUCTION Q2H. NO C/O PAIN OR DISCOMFORT. REPORT TO ONCOMING RN.
--- NOTE | 2022-10-05 18:38 | NUR ---
SHIFT SUMMARY PT IS AOX4 TODAY, FAMILY AT THE THIS SHIFT. PT WORKED WELL WITH PT TODAY AND SPENT TIME SITTING UP IN THE CHAIR. HE TOLERATED HIS FEEDINGS WELL AND HAS BEEN SLEEPING/RESTING MOST OF THE LATER AFTERNOON. HE IS COOPERATIVE AND FOLLOWS DIRECTIONS. A WOUND DRESSING WAS PLACED ON HIS LEFT POSTERIOR ANKLE. HIS SAYS TO CALL ANYTIME IF THERE ARE ANY ISSUES. CALL LIGHT IS PLACED WITHIN REACH.
--- NOTE | 2022-10-06 04:29 | NUR ---
SHIFT SUMMARY PT RECIEVED HIS LAST TUBE FEED AND TOLERATED IT WELL. HE FEELS THE BANANTROL IS HELPING WITH HIS DIARRHEA. HE STILL HAS SOME YEAST RACSH ONHIS GROIN BUT ALSO IT APPEAR AND ALLERGIC REACTION TO THE STA LOCK STICKERS. SMALL AMMOUNTS OF LEAKAGE OUT AND AROUND THE RECTAL TUBE. PT ROLLED 2 TO CHANGE BRIEF PRN AND PREVENT BREAKDOWN. BED IN LOWES POSITION AND CALL LIGHT IN REACH
--- NOTE | 2022-10-06 07:30 | NUR ---
ASSUMED CARE: PT RESTING QUIETLY IN BED AT THIS TIME. NO ACUTE NEEDS OR CONCERNS. ON RA, NO TELE. TF COMPLETE PER NIGHT RN. AM DOSE GIVEN EARLY DUE TO PT REPORTING HUNGER
--- NOTE | 2022-10-06 18:34 | NUR ---
SHIFT SUMMARY: PT UP IN CHAIR PART OF SHIFT AND WORKED WITH PT/OT. RECIEVED BATH AND DRESSING CHANGES TO COCCYX. TUBE FEED BOLUSES PER ORDERS. AWAITING SNF PLACEMENT. NO FURTHER NEEDS OR CONCERNS AT THIS TIME.
--- NOTE | 2022-10-07 07:28 | NUR ---
SHIFT SUMMARY; PT WITH NO ACUTE CHANGES THROUGHOUT THE NIGHT. PT WITH PRESSURE ULCER ON COCCYX, NO MEPILEX DUE TO FREQUENT LOOSE STOOLS. PT WITH NON-ADHERENT DRESSING CHANGE TO L LOWER LEG/ANKLE. PT RECIEVED 2 FEEDINGS VIA PEG TUBE THROUGHOUT THE NIGHT. PT AWAITS SNF PLACEMENT. PT CURRENTLY RESTING IN BED WITH THE BED IN THE LOWEST POSITION AND THE CALL LIGHT AT BEDSIDE.
--- NOTE | 2022-10-07 13:40 | NUR ---
RECTAL TUBE DISLODGED THIS AM, STOOL NOTED COMING FROM RECTUM, UPON CLEANING PT UP, IT WAS NOTED RECTAL HAD SLIPPED OUT AND WAS NO LONGER IN RECTUM. DISCUSSED W/DR DEL VALLE, DO NOT REPLACE.
--- NOTE | 2022-10-07 17:28 | NUR ---
SUMMARY NO ACUTE CHANGES T/O SHIFT. PT TOLERATING PEG FEEDS. THIS AM, WHEN TURNING TO CLEAN UP STOOL, FOUND RECTAL TUBE HAD DISLODGED. DR DEL VALLE NOTIFIED AND INSTRUCTED TO LEAVE OUT. PT HAS HAD TWO BMS THIS SHIFT. WAHL DRAINING LARGE AMOUNTS DEAN YELLOW URINE. SLIGHT AMOUNT OF BLEEDING NOTED FROM TIP OF PENIS WHEN CATH CARE PERFORMED. ADJUSTED STAT LOCK POSITION TO MINIMIZE TUGGING. BUTTOCKS EXCORIATED, APPLIED PROTECTIVE CREAM. REPOSITIONED T/O SHIFT. PT HAS PRODUCTIVE COUGH BUT STATES UNABLE TO "COUGH IT UP". FAMILY AT BEDSIDE TODAY. PT PLEASANT AND COOPERATIVE. CALL LIGHT IN REACH.
--- NOTE | 2022-10-08 04:32 | NUR ---
SHIFT SUMMARY; NO ACUTE MEDICAL CHANGES OVERNIGHT. PT TOLERATES HIS TUBE FEEDINGS WELL. PT STILL HAVING FREQUENT STOOLS BUT THEY ARE THICKINING UP. PT STILL HAS EXTENSIVE EXCORATION IN HIS BUTTOCKS, BARRIER CREAM WAS APPLIED AND THE PT HAS BEEN TURNED Q2HRS. PT CURRENTLY RESTING IN BED WITH THE BED IN THE LOWEST POISTION AND THE CALL LIGHT IN HIS LAP.
--- NOTE | 2022-10-08 19:25 | NUR ---
SHIFT SUMMARY PATIENT ALERT AND ORIENTED WHEN AWAKE. NPO, TOLERATING PEG TUBE FEEDS AND MEDS. LEFT SIDE FLACCID. TOTAL LIFT FOR UP TO CHAIR. INCONTINENT AT BASELINE. 2 BM THIS SHIFT SOFT. PLAN FOR DISCHARGE TO SNF WHEN BED AVAILABLE. FAMILY ATTENTIVE IN ROOM DURING AFTERNOON. REPORT GIVEN TO PHOTOENGRAVING FINISHER RN.
--- NOTE | 2022-10-09 07:56 | NUR ---
SHIFT SUMMARY; NO ACUTE MEDICAL CHANGES OVERNIGHT. THE PT IS NO LONGER HAVING LOOSE STOOLS. EXTENSIVE EXCORATION TO THE PTS BUTTOCK AND AGNES AREA IS PRESENT. THE PT DENIES ANY PAIN OR SOB. CURRENTLY THE PT IS RESTING IN BED WITH THE BED IN THE LOWEST POSITION AND THE CALL LIGHT IN HIS LAP.
[2022-10-09 11:12] LABS: SARS-Cov-2 (COVID-19) PCR, MMC NEGATIVE (NEGATIVE)
[2022-10-09] MEDS ORDERED: BANATROL PLUS1 EAC1 PT (12:17)
[2022-10-09] MEDS ORDERED: GLYC2 PT (12:18)
[2022-10-09] MEDS ORDERED: DULCOLAX400 MG/5 M PT (12:19)
[2022-10-09] MEDS ORDERED: MELATONIN5 M1 PT (12:19)
[2022-10-09] MEDS ORDERED: METO25 PT (12:20)
[2022-10-09] MEDS ORDERED: MICONAZOLE NITR85 GM TOP (12:22)
[2022-10-09] MEDS ORDERED: VISBIOME 112.51 EACH PT (12:22)
--- NOTE | 2022-10-09 16:01 | NUR ---
PT DISCHARGED PT DC'D TO [facility]. REPORT GIVEN TO SETH MIGUEL, THE PT WAS TRANSFERED VIA GURNEY. PT APPEARED TO BE BREATHING EASILY ON RA AT THE TIME OF TRANSFER. BELONGINGS RELAESD TO THE PT AND EARLIER TO HIS
== END 2022-10-09 15:40 | disposition home or self-care (01) | DRG 871 ==
LOC: ER 07:36 → MEDS 10:09 → PCU 10:09 → MEDS 10:09 → PCU 17:16 → MEDS 10-04 20:35
PROVIDERS: Emergency Medicine; Internal Medicine; Nurse Practitioner Acute Care; ADMIT Hospitalist
DX: A41.9 Sepsis, unspecified organism (principal); J18.9 Pneumonia, unspecified organism; J69.0 Pneumonitis due to inhalation of food and vomit; J96.01 Acute respiratory failure with hypoxia; G81.94 Hemiplegia, unspecified affecting left nondominant side; N17.9 Acute kidney failure, unspecified; R13.10 Dysphagia, unspecified; I27.21 Secondary pulmonary arterial hypertension; E20.9 Hypoparathyroidism, unspecified; Z51.5 Encounter for palliative care; N40.0 Benign prostatic hyperplasia without lower urinary tract symptoms; I48.91 Unspecified atrial fibrillation; M25.569 Pain in unspecified knee; E03.9 Hypothyroidism, unspecified; E21.3 Hyperparathyroidism, unspecified; E78.5 Hyperlipidemia, unspecified; R21 Rash and other nonspecific skin eruption; E16.4 Increased secretion of gastrin; L89.622 Pressure ulcer of left heel, stage 2; L89.152 Pressure ulcer of sacral region, stage 2; L89.899 Pressure ulcer of other site, unspecified stage; L89.892 Pressure ulcer of other site, stage 2; Z20.822 Contact with and (suspected) exposure to COVID-19; Z79.899 Other long term (current) drug therapy; Z86.73 Personal history of transient ischemic attack (TIA), and cerebral infarction without residual deficits; Z87.891 Personal history of nicotine dependence; Z79.01 Long term (current) use of anticoagulants; Z79.82 Long term (current) use of aspirin; Z79.02 Long term (current) use of antithrombotics/antiplatelets
CPT/HCPCS: 36415; 51701; 71045; 80048; 80053; 80069; 81001; 82550; 82553; 83605; 83735; 83880; 84100; 85025; 85027; 87040; 87493; 92526; 92610; 94640; 94664; 94760; 94762; 96374-59; 97110; 97112; 97162; 97166; 97530; 97535; 99285-25; A9270; J0295; J7030; J7050; J7060; U0004

== ENCOUNTER 2024-03-09 21:59 | Inpatient (IN) | payer MEDICARE, OTHER ==
[~2024-03-09] VITALS: Ht 190.5 cm; Wt 125.3 kg
[~2024-03-09 21:59] MED LIST changes: +BANATROL PLUS1 EAC1 PT; +DULCOLAX400 MG/5 M PT; +GLYC2 PT; +MELATONIN5 M1 PT; +METO25 PT; +MICONAZOLE NITR85 GM TOP; +VISBIOME 112.51 EACH PT
[2024-03-09] MEDS ORDERED: METO100ER PO (23:37)
[2024-03-09] MEDS ORDERED: TRIA15CR3 TOP (23:38)
[2024-03-09 23:39] LABS: BASOPHILS ABSOLUTE AUTO 0.06 K/mm3 (0.00-0.23); BASOPHILS PERCENT AUTO 1 % (0-2); EOSINOPHILS ABSOLUTE AUTO 0.07 K/mm3 (0.00-0.68); EOSINOPHILS PERCENT AUTO 1 % (0-6); Hematocrit 36.7 % (37.0-53.0); Hemoglobin 11.4 g/dL (13.5-17.5); IMMATURE GRAN ABSOLUTE AUTO 0.06 K/mm3 (0.00-0.10); IMMATURE GRAN PERCENT AUTO 1 % (0-1); LYMPHOCYTES ABSOLUTE AUTO 0.56 K/mm3 (0.84-5.20); LYMPHOCYTES PERCENT AUTO 8 % (21-46); MONOCYTES ABSOLUTE AUTO 0.58 K/mm3 (0.16-1.47); MONOCYTES PERCENT AUTO 8 % (4-13); Mean Corpuscular HGB 29.7 pg (26.0-34.0); Mean Corpuscular HGB Conc 31.1 g/dL (31.5-36.5); Mean Corpuscular Volume 96 fL (80-100); Mean Platelet Volume 10.7 fL (9.1-12.4); NEUTROPHILS ABSOLUTE AUTO 5.65 K/mm3 (1.96-9.15); NEUTROPHILS PERCENT AUTO 81 % (41-73); Platelet Count 147 K/mm3 (150-400); RDW Coefficient Variation 14.4 % (11.7-14.2); RDW Standard Deviation 50.2 fL (35.1-46.3); Red Blood Cell Count 3.84 M/mm3 (4.30-5.90); White Blood Cell Count 6.98 K/mm3 (4.00-11.30)
[2024-03-09] MEDS ORDERED: NEBIVOLOL HCL10 MG PO (23:39)
[2024-03-09] MEDS ORDERED: HYDROmorphone HCl/Pf 1MG SYR IV ONE (23:55)
[2024-03-10 00:02] LABS: Albumin, Blood 2.7 g/dL (3.4-5.0); Albumin/Globulin Ratio 0.6 (0.8-1.8); Bilirubin, Total 1.5 mg/dL (0.1-1.0); Bun/Creatinine Ratio 16.2 (12.0-20.0); Calcium, Blood 7.5 mg/dL (8.5-10.1); Creatinine, Blood 0.99 mg/dL (0.60-1.20); Globulin, Blood 4.3 g/dL (2.2-4.0)
[2024-03-10 00:03] LABS: Potassium, Blood 5.3 mmol/L (3.5-5.5)
[2024-03-10] MEDS ORDERED: Acetaminophen 325 MG TABLET PO PRN (00:45)
[2024-03-10] MEDS ORDERED: Naloxone HCl 0.4MG / ML 1ML Vial IV PRN (00:50)
[2024-03-10] MEDS ORDERED: Ondansetron HCl 2 MG / ML 2ML Vial IV PRN (00:50)
[2024-03-10] MEDS ORDERED: FentaNYL Citrate 50 MCG/ML 2 ML Injection IV PRN (00:50)
[2024-03-10] MEDS ORDERED: OxyCODONE HCL 5 MG TAB PO PRN (00:50)
[2024-03-10 02:13] LABS: International Normalized Ratio 1.49; Prothrombin Time Results 15.3 Sec (9.7-11.5)
--- NOTE | 2024-03-10 02:45 | NUR ---
PT ARRIVED TO ROOM 215 FROM ER. PT A/O X3, VSS, SATS >90% ON 2L2 NC. LLE SHORTENED, EXT ROTATED, PT DENIED N/T. LLE SWOLLEN 2+ EDEMA FROM HIP TO FOOT, PEDAL PULSE MARKED W/DOPPLER, CAP REFILL 3 SEC. PT HAS SCATTERED SCABS FROM SHOULDERS TO LEGS INCLUDING TRUNK, NONE NOTED ON BACK. PT REP SCABS PRESENT FOR "YEARS" STATES HAS BEEN SEEING ENGINEERING WRITER LAST YEST 03/09. PT STATES HE "PUTS SALVE" ON RASH/SCABS, NAME UNKNOWN. PT ARRIVED W/JEROD WRAP TO BLE, WRAP REMOVED TO ASSESS; BLE REDDENED/SWOLLEN W/SCATTERED SCABS. FEW SMALL WEEPING AREAS NOTED BELOW L KNEE DRNG CLEAR FLUID. LEGS W/VISIBLE MARCATION R/T TIGHTNESS OF WRAPS. LEGS LEFT OPEN TO AIR AFTER WRAPS REMOVED. NON BLANCHABLE AREA NOTED TO COCCYX, MEPILEX DRESSING PLACED. PT STATES HE SWALLOWS MEDS WHOLE W/WATER, DOES REP OCC SWALLOWING DIFFICULTY. PT ORIENTED TO ROOM/CALL LIGHT AND TX PLAN. PT ORIENTED TO ROOM/CALL LIGHT AND TX PLAN.
[2024-03-10 02:50] VITALS: BP 131/71
[2024-03-10] MEDS ORDERED: Heparin Sodium,Porcine/0.5 NS 500 ML IV SCH (03:10)
[2024-03-10 04:48] LABS: BASOPHILS ABSOLUTE AUTO 0.05 K/mm3 (0.00-0.23); BASOPHILS PERCENT AUTO 1 % (0-2); EOSINOPHILS ABSOLUTE AUTO 0.03 K/mm3 (0.00-0.68); EOSINOPHILS PERCENT AUTO 0 % (0-6); Hematocrit 37.1 % (37.0-53.0); Hemoglobin 11.6 g/dL (13.5-17.5); IMMATURE GRAN ABSOLUTE AUTO 0.04 K/mm3 (0.00-0.10); IMMATURE GRAN PERCENT AUTO 1 % (0-1); LYMPHOCYTES ABSOLUTE AUTO 0.65 K/mm3 (0.84-5.20); LYMPHOCYTES PERCENT AUTO 8 % (21-46); MONOCYTES ABSOLUTE AUTO 0.91 K/mm3 (0.16-1.47); MONOCYTES PERCENT AUTO 12 % (4-13); Mean Corpuscular HGB 29.7 pg (26.0-34.0); Mean Corpuscular HGB Conc 31.3 g/dL (31.5-36.5); Mean Corpuscular Volume 95 fL (80-100); Mean Platelet Volume 10.8 fL (9.1-12.4); NEUTROPHILS ABSOLUTE AUTO 6.22 K/mm3 (1.96-9.15); NEUTROPHILS PERCENT AUTO 79 % (41-73); Platelet Count 137 K/mm3 (150-400); RDW Coefficient Variation 14.3 % (11.7-14.2); RDW Standard Deviation 49.9 fL (35.1-46.3)
[2024-03-10 05:01] LABS: International Normalized Ratio 1.49; Prothrombin Time Results 15.3 Sec (9.7-11.5)
[2024-03-10 05:13] LABS: Albumin, Blood 2.9 g/dL (3.4-5.0); Albumin/Globulin Ratio 0.7 (0.8-1.8); Bilirubin, Total 1.7 mg/dL (0.1-1.0); Bun/Creatinine Ratio 14.3 (12.0-20.0); Calcium, Blood 8.4 mg/dL (8.5-10.1); Creatinine, Blood 1.19 mg/dL (0.60-1.20); Globulin, Blood 4.4 g/dL (2.2-4.0); Potassium, Blood 3.7 mmol/L (3.5-5.5); Total Protein, Blood 7.3 g/dL (6.4-8.2)
--- NOTE | 2024-03-10 06:18 | NUR ---
PT VSS SINCE ARRIVING TO FLOOR. SATS >90% ON 2LO2 NC. PT MED FOR PAIN X1 W/REP RELIEF. HEPARIN GTT INFUSING PER ORDERS. PT NPO AWAITING SURGICAL CONSULT. PLAN TO UPDATE DAY RN ON NEED FOR PICS OF RASH/SCABS.
[2024-03-10 07:02] VITALS: BP 116/57
[2024-03-10] MEDS ORDERED: Potassium Chloride 10 Meq Tablet SA PO SCH (08:00)
[2024-03-10] MEDS ORDERED: Tranexamic Acid 100 ML IV SCH (08:35)
[2024-03-10] MEDS ORDERED: CeFAZolin Sodium 3,000 MG in NS 100 ML IV SCH (08:40)
[2024-03-10] MEDS ORDERED: Aspirin 81 MG Chew PO SCH (09:00)
[2024-03-10] MEDS ORDERED: Docusate Sodium 100 MG Cap PO SCH (09:00)
[2024-03-10] MEDS ORDERED: Tamsulosin HCl 0.4 MG Cap PT SCH (09:00)
[2024-03-10] MEDS ORDERED: Bumetanide 1 MG Tab PT SCH (09:00)
[2024-03-10] MEDS ORDERED: AmLODIPine Besylate 5 MG Tab PT SCH (09:00)
[2024-03-10] MEDS ORDERED: Metoprolol Succinate 50 MG TABCR PO SCH (09:00)
[2024-03-10] MEDS ORDERED: Doxycycline Mo100 M1 PO (10:26)
[2024-03-10 13:06] VITALS: BP 120/54
--- NOTE | 2024-03-10 13:10 | NUR ---
13:00 CALL FROM TELE TO NOTIFY THAT PATIENT HAD 15 BEAT RUN OF V-TACH, ENTERED ROOM, PATIENT CURRENTLY ASLEEP BUT EASILY AROUSABLE, DENIES CP OR SOB BUT NOTED THAT SATS WERE 86% ON 2L VIA NC, BUMPED O2 UP TO 5L AND TITRATED BACK DOWN OVER THE COURSE OF SEVERAL MINUTES TO 3L TO MAINTAIN GREATER THAN 90%. BP 120/54, P 68, RR 18.
[2024-03-10 14:46] VITALS: BP 110/54
--- NOTE | 2024-03-10 16:47 | NUR ---
MET WITH ED AND HIS . ED WAS HAVING DIFFICULTY STAYING AWAKE DURING OUR VISIT. HE REPORTED THAT HE WAS FINE BUT HAVING PAIN. I DISCUSSED EVERYDAY LIFE WITH HIS . SHE SAID THAT ED DOES NOT GO OUTSIDE LIKE HE USED TO, BUT HE DRIVES HER TO TOWN TO GO SHOPPING. SHE SAID THAT SHE HELPS HIM WITH HIS ADS LIKE SHOWERING. HE IS GOING FOR A PROCEDURE TOMORROW AND WILL FOLLOW UP ABOUT CODE STATUS.
--- NOTE | 2024-03-10 18:54 | NUR ---
SHIFT SUMMARY S/P L HIP FX, A/OX4, VSS, TOLERATING PO AFTER SURGERY PUSHED TO TOMORROW, HEPARIN DRIP RUNNING WITH ESTIMATED OR TIME OF 1230/1300 ON 03/11, WILL NEED TO BE STOPPED 6 HOURS PRIOR TO SURGERY SO WILL NEED TO VERIFY TIME IN THE MORNING. LARGE UNMEASURED VOID THIS SHIFT, BLADDER SCAN SHOWS JUST OVER 500 BUT PT WANTS MORE TIME TO VOID ON HIS OWN. NO ACUTE EVENTS THIS SHIFT, CALL LIGHT IN REACH.
[2024-03-10 19:19] VITALS: BP 114/60
[2024-03-10] MEDS ORDERED: Dose Adjust by Pharmacy XX STA (19:33)
[2024-03-10] MEDS ORDERED: Atorvastatin 40 MG Tab PT SCH (21:00)
[2024-03-10] MEDS ORDERED: Doxycycline Hyclate 100 MG TAB PO SCH (21:00)
[2024-03-11] VITALS (22 sets, daily range): BP systolic 94–129; BP diastolic 26–95
[2024-03-11] MEDS ORDERED: Dose Adjust by Pharmacy XX STA (02:24)
--- NOTE | 2024-03-11 05:53 | NUR ---
SHIFT SUMMARY S/P L HIP FX, A/O X4, VSS. TELE IN PLACE. HEPARIN DRIP INFUSING AT ORDERED RATE. PT NPO SINCE 0000 FOR SURGERY TODAY. REPOSITIONED THROUGHOUT THE NIGHT, PT RETAINING 200-400MLS OF URINE BUT HAS VOIDED SEVERAL TIMES BOTH INCONTINENT AND CONTINENT, DENIES BLADDER FULLNESS. PT HAS L SIDED DEFICIT FROM HX OF CVA BUT IS ABLE TO ASSIST W/ ADLS AND USE CALL LIGHT APPROPRIATELY. PT MEDICATED FOR PAIN W/ TOLERABLE RESULTS, 2LNC FOR DESATING W/ NARCOTIC USE. PT IS CURRENTLY RESTING PEACEFULLY W/ CALL LIGHT IN PLACE.
[2024-03-11 06:59] LABS: Source, Urine Foley catheter
[2024-03-11 07:16] LABS: Appearance, Urine Cloudy (Clear); Bilirubin, Urine Neg (Neg); Blood, Urine 5+ (Neg); Color, Urine Amber (P-Yellow); Glucose Qualitative, Urine Neg (Neg); Ketones, Urine Neg (Neg); Leukocyte Esterase, Urine 1+ (Neg); Nitrite, Urine Neg (Neg); Protein, Urine 3+ (Neg); Urobilinogen, Urine 1+ (Normal)
[2024-03-11 08:34] LABS: Bacteria Few /hpf; Red Blood Cells, Urine TNTC /hpf (0-2); Renal Epithelial Rare /hpf (0-Rare); Squamous Epithelial Cells Rare /hpf (Few); White Blood Cells, Urine 0-2 /hpf (0-5)
[2024-03-11] MEDS ORDERED: Lactated Ringer's 1,000 ML IV SCH ×2 (13:20→17:05)
[2024-03-11] MEDS ORDERED: CeFAZolin Sodium 3,000 MG in NS 100 ML IV SCH (13:20)
[2024-03-11] MEDS ORDERED: Ropivacaine 0.5% HCl/Pf 123.125 MG,EPINEPHrine HCL 0.25 MG,Ketorolac Tromethamine 15 MG... INFIL SCH (13:20)
[2024-03-11] MEDS ORDERED: Tranexamic Acid 100 ML IV SCH (13:20)
[2024-03-11] MEDS ORDERED: Etomidate 2MG / ML 10ML Vial ONE (15:10)
[2024-03-11] MEDS ORDERED: Dexamethasone Sod Phos 10 MG/ML 1ML VIAL ONE ×2 (15:45→15:47)
[2024-03-11] MEDS ORDERED: Ondansetron HCl 2 MG / ML 2ML Vial ONE ×3 (15:45→17:11)
[2024-03-11] MEDS ORDERED: Rocuronium Bromide 10 MG/ML 5ML Injection IV ONE (15:45)
[2024-03-11] MEDS ORDERED: FentaNYL Citrate 50 MCG/ML 2 ML Injection ONE (16:31)
[2024-03-11] MEDS ORDERED: Sugammadex Sodium 200 MG/2ML SDV (100 MG/ML) ONE (16:50)
[2024-03-11] MEDS ORDERED: HYDROmorphone HCl/Pf 1MG SYR IV PRN (17:05)
[2024-03-11] MEDS ORDERED: OxyCODONE HCL 5 MG TAB PO PRN ×2 (17:05)
[2024-03-11] MEDS ORDERED: Magnesium Hydroxide Conc 10 ML UDC PO PRN (17:05)
[2024-03-11] MEDS ORDERED: Bisacodyl 10 MG Supp PR PRN (17:10)
[2024-03-11] MEDS ORDERED: Metoclopramide HCl 5MG / ML 2ML Vial IV PRN (17:10)
[2024-03-11] MEDS ORDERED: Ondansetron HCl 2 MG / ML 2ML Vial IV PRN (17:10)
[2024-03-11] MEDS ORDERED: HYDROmorphone HCl/Pf 1MG SYR ONE (17:37)
[2024-03-11] MEDS ORDERED: Docusate Sodium 100 MG Cap PO SCH (21:00)
[2024-03-11] MEDS ORDERED: CeFAZolin Sodium 2,000 MG in NS 100 ML IV SCH (23:00)
[2024-03-11] MEDS ORDERED: NS 250 ML IV PRN (23:25)
--- NOTE | 2024-03-11 23:41 | NUR ---
HEPARIN GTT CLARIFIED WHETHER TO RESTART HEPARIN GTT TONIGHT POST OP. PER HOSPITALIST DONNIE BAH TO RESTART HEPARIN GTT TONIGHT AND AWAIT FURTHER ANTICOAG MGMT PER ORTHO. PHARMACIST NOTIFIED OF PLAN TO RESTART.
[2024-03-12] MEDS ORDERED: Acetaminophen 500 MG Tab PO SCH
[2024-03-12 00:20] LABS: BASOPHILS ABSOLUTE AUTO 0.01 K/mm3 (0.00-0.23); BASOPHILS PERCENT AUTO 0 % (0-2); EOSINOPHILS PERCENT AUTO 0 % (0-6); Hematocrit 36.2 % (37.0-53.0); Hemoglobin 11.2 g/dL (13.5-17.5); IMMATURE GRAN ABSOLUTE AUTO 0.04 K/mm3 (0.00-0.10); IMMATURE GRAN PERCENT AUTO 1 % (0-1); LYMPHOCYTES ABSOLUTE AUTO 0.36 K/mm3 (0.84-5.20); LYMPHOCYTES PERCENT AUTO 5 % (21-46); MONOCYTES ABSOLUTE AUTO 0.35 K/mm3 (0.16-1.47); MONOCYTES PERCENT AUTO 5 % (4-13); Mean Corpuscular HGB 29.9 pg (26.0-34.0); Mean Corpuscular HGB Conc 30.9 g/dL (31.5-36.5); Mean Corpuscular Volume 97 fL (80-100); Mean Platelet Volume 10.8 fL (9.1-12.4); NEUTROPHILS ABSOLUTE AUTO 6.95 K/mm3 (1.96-9.15); NEUTROPHILS PERCENT AUTO 90 % (41-73); Platelet Count 143 K/mm3 (150-400); RDW Coefficient Variation 14.2 % (11.7-14.2); RDW Standard Deviation 50.4 fL (35.1-46.3); Red Blood Cell Count 3.75 M/mm3 (4.30-5.90); White Blood Cell Count 7.71 K/mm3 (4.00-11.30)
[2024-03-12 00:53] LABS: Bun/Creatinine Ratio 16.5 (12.0-20.0); Calcium, Blood 8.2 mg/dL (8.5-10.1); Creatinine, Blood 1.21 mg/dL (0.60-1.20); Potassium, Blood 4.1 mmol/L (3.5-5.5)
[2024-03-12 01:19] LABS: International Normalized Ratio 1.34
[2024-03-12 03:00] VITALS: BP 128/62
--- NOTE | 2024-03-12 04:43 | NUR ---
SHIFT SUMMARY PT IS POD1 FOR A L KEELEY HIP W/ DR. HELTON. A/O X2-3, PT IS FORGETFUL AND NEEDS FREQUENT REMINDING BUT HAS NOT BEEN IMPULSIVE OR TRIED TO GET OUT OF BED ON HIS OWN. PT MEDICATED FOR PAIN PER EMAR W/ GOOD RESULTS, PT HAS BEEN SLEEPING MOST OF SHIFT. CONT PULSE OX IN PLACE, 3LNC, VSS. HEPARIN INFUSING PER EMAR. WAHL IN PLACE W/ STAT LOCK AND DRAINING PINK TINGED URINE TO GRAVITY. DRESSING ON L HIP REMAINS C/D/I. ANTIBITOICS GIVEN PER EMAR. TOLERATING PO FLUIDS.
[2024-03-12] MEDS ORDERED: Dose Adjust by Pharmacy XX STA (08:38)
[2024-03-12 08:48] VITALS: BP 106/51
[2024-03-12 15:21] VITALS: BP 112/64
--- NOTE | 2024-03-12 15:43 | NUR ---
SHIFT SUMMARY: POD 1 LEFT KEELEY HIP PATIENT IS A&OX4. PATIENT IS CURRENTLY ON 3L NC WITH >90% OXYGEN SATS AND CONTINUOUS BIOX IN PLACE. PAIN IS MANAGED WITH PO TYLENOL SO FAR THIS SHIFT. HIS LEFT HIP HAS GAUZE AND MEDIPORE DRESSING THAT HAS A SCANT AMOUNT OF BLOOD ON DRESSING BUT IS INTACT AT THIS TIME. THIS NURSE CONVEYED CONCERN THIS MORNING TO DR. MENDOZA ABOUT HIS SCABS SCATTERED AND "ITCHY" FEELING ON ALL EXTREMITIES AND TORSO IN WHICH DR. MENDOZA PLACED THE ORDER FOR ELIMITE OINTMENT ON AFFECTED AREAS. JEEPER OPERATOR GENNY CALLED THE PATIENTS EQUITY SALES ASSISTANT IN WHICH PATIENT HAS BEEN POSITIVE FOR SCABIES SINCE 03/06/24. SINCE PATIENT HAD THE ELIMITE OINTMENT PLACED ON THE AFFECTED AREAS PATIENT STATES "ITS NOT NEARLY ITCHY ANYMORE". PATIENT HAS A HX OF CVA WITH LEFT SIDED DEFICITS - HE IS UNABLE TO MOVE LEFT ARM BUT IS ABLE TO DO SMALL MOVEMENTS WITH HIS LEFT LEG. PATIENT IS CONTINENT/INCONTINENT WITH ATTENDS IN PLACED AND CHANGED PRN. HE IS TOLERATING PO INTAKE AND DENIES NAUSEA OR VOMITING. PATIENT DID WORK WITH PHYSICAL AND OCCUPATIONAL THERAPY TODAY BUT WAS ONLY ABLE TO SIT/STAND AT THE SIDE OF THE BED FOR A SHORT PERIOD OF TIME. HE IS A 2 PERSON MODERATE ASSIST WITH REPOSITIONING OR SITTING AT THE SIDE OF THE BED. PATIENT IS CURRENTLY LAYING IN BED WITH CALL LIGHT IN REACH. PATIENT CALLS APPROPRIATELY.
--- NOTE | 2024-03-12 19:14 | NUR ---
SINCE ASSUMING CARE, IV IN R ARM WAS FOUND TO BE INFILTRATED. HEPARIN SWITCHED TO L ARM. PHARMACY AWARE. HAS DENIED NEEDS; REPORTS PAIN LOW.
[2024-03-12 20:00] VITALS: BP 96/46
[2024-03-12] MEDS ORDERED: Tamsulosin HCl 0.4 MG Cap PO SCH (21:00)
[2024-03-13] VITALS: BP 108/54
[2024-03-13 02:42] VITALS: BP 97/46
[2024-03-13 04:38] LABS: Hematocrit 29.4 % (37.0-53.0); Hemoglobin 9.1 g/dL (13.5-17.5); Mean Corpuscular HGB 29.6 pg (26.0-34.0); Mean Corpuscular Volume 96 fL (80-100); Mean Platelet Volume 10.7 fL (9.1-12.4); Platelet Count 125 K/mm3 (150-400); RDW Standard Deviation 49.3 fL (35.1-46.3); Red Blood Cell Count 3.07 M/mm3 (4.30-5.90); White Blood Cell Count 7.01 K/mm3 (4.00-11.30)
[2024-03-13 04:50] LABS: Bun/Creatinine Ratio 22.3 (12.0-20.0); Calcium, Blood 8.3 mg/dL (8.5-10.1); Creatinine, Blood 1.3 mg/dL (0.60-1.20)
[2024-03-13 06:39] VITALS: BP 96/53
[2024-03-13 07:15] VITALS: BP 104/64
--- NOTE | 2024-03-13 07:42 | NUR ---
SHIFT SUMMARY POD #2 L.HIP PT IS A&O X3, PAIN WNL, SLIGHT SS DRAINAGE NOTED TO DRSG, EDEMA NOTED IN ALL EXT, ELEVATION ENC, RESP UNLABORED, 3 L O2 VIA NC, HX APNEA & REFUSING CPAP, CONT BIOX IN PLACE, LOW BP'S NOTED, MAP >60 ASYMPTOMATIC, AFEBRILE, MICHELLE PO, VOIDING WNL, ATTENDS CHANGED PRN, 2 MAX ASSIST, HEP GTT INFUSING PER EMAR, PT IA AWAKE/ALERT THIS AM, CALL LIGHT IN REACH, REPORT GIVEN TO JAMEY MIGUEL
[2024-03-13] MEDS ORDERED: Metoprolol Succinate 50 MG TABCR PO SCH (09:00)
[2024-03-13] MEDS ORDERED: Dose Adjust by Pharmacy XX STA (10:58)
--- NOTE | 2024-03-13 14:03 | NUR ---
ISOLATION NOT REQUIRED AFTER 24 HOURS OF APPLIED TREATMENT PER INFECTION CONTROL.
[2024-03-13 15:03] VITALS: BP 114/50
[2024-03-13 19:33] VITALS: BP 95/54
[2024-03-13] MEDS ORDERED: Apixaban 5 MG Tab PO SCH (21:00)
--- NOTE | 2024-03-14 00:18 | NUR ---
L HIP WOUND DRESSING CHANGED DRESSING CHANGED AT 0000, USED 3M MEDIPORE DRESSING WITH GUAZE AND TEGEDERM.
[2024-03-14 02:48] VITALS: BP 107/60
[2024-03-14 05:34] LABS: Bun/Creatinine Ratio 28.8 (12.0-20.0); Calcium, Blood 8.4 mg/dL (8.5-10.1); Creatinine, Blood 1.18 mg/dL (0.60-1.20); Magnesium, Blood 1.8 mg/dL (1.6-2.4)
--- NOTE | 2024-03-14 06:11 | NUR ---
Shift Summary Pt attempted a BM on the bedpan but was unable to go, he states his last BM was 3 days ago. I gave him 1 dose of PRN MoM and he scheduled docusate. Wound dressing was saturated and changed around 0000 using medipore, guaze and tegederm. This AM dressing is C/D/I. Pt having heavy incont voids, attends changed PRN. Heparine infusion was stopped at 2100 as ordered when eliquis was restarted. On cont. biox, no desaturation events despite NC frequently becoming dislodged.
[2024-03-14 07:20] VITALS: BP 108/56
[2024-03-14 08:54] LABS: Hematocrit 26.1 % (37.0-53.0); Hemoglobin 8.4 g/dL (13.5-17.5)
[2024-03-14] MEDS ORDERED: Aspirin 81 MG Chew PO SCH (09:00)
[2024-03-14 14:37] VITALS: BP 116/58
--- NOTE | 2024-03-14 16:52 | NUR ---
SHIFT SUMMARY PT POD #3 FOR L HIP PINNING. INCISION DRAINING A MODERATE AMOUNT OF SS FLUID. DRESSING CHANGED X2. CURRENTLY HAS ABD PAD WITH PRESSURE TAPE TO THE SITE. BANDAIDS ON LEGS DUE TO BLEEDING SCABS. PT HAS L SIDE FLACCIDITY AND ABLE TO STAND AT SIDE OF BED BUT UNABLE TO WALK. PT TO DC TO SNF WHEN H/H STABLE. VSS.
[2024-03-14 19:12] VITALS: BP 140/64
[2024-03-15 02:25] VITALS: BP 107/51
[2024-03-15 04:16] LABS: Hematocrit 26.5 % (37.0-53.0); Hemoglobin 8.3 g/dL (13.5-17.5); Mean Corpuscular HGB Conc 31.3 g/dL (31.5-36.5); Mean Corpuscular Volume 96 fL (80-100); Mean Platelet Volume 10.7 fL (9.1-12.4); Platelet Count 142 K/mm3 (150-400); RDW Coefficient Variation 14.1 % (11.7-14.2); RDW Standard Deviation 49.2 fL (35.1-46.3); Red Blood Cell Count 2.77 M/mm3 (4.30-5.90); White Blood Cell Count 7.12 K/mm3 (4.00-11.30)
--- NOTE | 2024-03-15 06:01 | NUR ---
SHIFT SUMMARY PT A&O X4, PLEASANT AND COOPERATIVE WITH CARE. VSS; SEE VITALS. PT REPORTS FEELING "TERRIBLE" AND "TIRED". NO ACUTE EVENTS OVERNIGHT. PT STILL REPORTING PAIN TO L HIP; ALTHOUGH NOT REQUESTING PAIN MEDICATION THIS SHIFT. REST AND REPOSITIONING ADEQUATE TO RELIEVE PAIN. PT HAVING BM'S THIS SHIFT; SMEAR - SMALL AMOUNT OF BROWN FORMED STOOL. ATTEND IN PLACED, CHANGED FREQUENTLY PT IS INCONTINENT. CONDOM CATHETER PLACED AND DRAINING TO GRAVITY AT THIS TIME. PT WITH SMALL EXORIATION TO COCCYX AND REDDENING. MEPILEX IN PLACE AND CHANGED PRN. PT WITH SCABS AND SKIN TEARS SCATTERED T/O. CALL LIGHT IN REACH, ABLE TO MAKE NEEDS KNOWN. WILL UPDATE ONCOMING RN
[2024-03-15 07:21] VITALS: BP 105/54
[2024-03-15 07:22] VITALS: BP 109/57
[2024-03-15 08:11] LABS: FERRITIN 171 ng/mL (30-400)
[2024-03-15 11:05] LABS: SARS-Cov-2 (COVID-19) PCR, MMC NEGATIVE (NEGATIVE)
[2024-03-15 11:11] LABS: IRON BIND.CAP.(TIBC) 193 ug/dL (250-450); IRON SATURATION 5 % (15-55); IRON, SERUM 10 ug/dL (38-169); UIBC 183 ug/dL (111-343)
--- NOTE | 2024-03-15 13:41 | NUR ---
DISCHARGE PT LEFT VIA WHEELCHAIR TRANSPORT TO [facility]. ATTENDS AND GOWN CHANGED PRIOR TO DISCHARGE. PT 2 ASSIST TO STAND AND PIVOT TO CHAIR. SCABS ACROSS BODY FROM HX OF SCABIES. LARGE BRUISING AROUND R HIP SURGICAL SITE. NO PAIN DURING SHIFT. EATING WELL. L ARM PLACED IN SLING FOR PATIENT COMFORT R/T HX OF STROKE. REPORT CALLED TO RECIEVING NURSE, ALL QUESTIONS ANSWERED.
== END 2024-03-15 14:30 | DRG 522 ==
LOC: ER 21:59 → SURS 03-10 01:26
PROVIDERS: Emergency Medicine; Internal Medicine; Nurse Practitioner Acute Care; Orthopaedic Surgery Sports Medicine; ADMIT Student in an Organized Health Care Education/Training Program
PROC: 0SRS0JA Replacement of Left Hip Joint, Femoral Surface with Synthetic Substitute, Uncemented, Open Approach (ICD-10-PCS; principal; 2024-03-11 13:00)
DX: S72.012A Unspecified intracapsular fracture of left femur, initial encounter for closed fracture (principal); I48.20 Chronic atrial fibrillation, unspecified; L03.116 Cellulitis of left lower limb; I69.354 Hemiplegia and hemiparesis following cerebral infarction affecting left non-dominant side; I13.0 Hypertensive heart and chronic kidney disease with heart failure and stage 1 through stage 4 chronic kidney disease, or unspecified chronic kidney disease; W18.30XA Fall on same level, unspecified, initial encounter; N40.0 Benign prostatic hyperplasia without lower urinary tract symptoms; I50.9 Heart failure, unspecified; I27.20 Pulmonary hypertension, unspecified; N18.2 Chronic kidney disease, stage 2 (mild); D63.1 Anemia in chronic kidney disease; D69.6 Thrombocytopenia, unspecified; Z96.653 Presence of artificial knee joint, bilateral; I87.2 Venous insufficiency (chronic) (peripheral); B86 Scabies; E89.0 Postprocedural hypothyroidism; F10.90 Alcohol use, unspecified, uncomplicated; Z79.82 Long term (current) use of aspirin; Z79.01 Long term (current) use of anticoagulants; Z79.899 Other long term (current) drug therapy; Z87.891 Personal history of nicotine dependence; Z93.1 Gastrostomy status; R60.0 Localized edema; R23.8 Other skin changes
CPT/HCPCS: 36415; 36416; 70450; 72125; 72170; 73502; 73552; 80048; 80053; 81001; 82728; 82947; 83540; 83550; 83735; 85014; 85018; 85025; 85027; 85520; 85610; 85651; 85730; 86140; 86850; 86900; 86901; 86923; 87086; 93005; 93010; 93971; 94762; 96374; 97110; 97163; 97166; 97530; 97535; 99284-25; 99285-25; A9270; C1776; J0171; J0690; J0735; J1100; J1170; J1644; J1885; J2405; J2795; J3010; J7050; J7120; U0002

== ENCOUNTER → 2024-07-17 | Outpatient (CLI) | payer MEDICARE, OTHER ==
[~2024-07-17] MED LIST changes: +Doxycycline Mo100 M1 PO; +METO100ER PO; +NEBIVOLOL HCL10 MG PO; +TRIA15CR3 TOP
== END | disposition home or self-care (01) ==
LOC: LAB SHORT 16:03 → LAB 16:03
DX: L08.0 Pyoderma (principal)
CPT/HCPCS: 87070; 87077; 87147; 87186; 87205

== ENCOUNTER → 2024-07-22 | Outpatient (CLI) | payer MEDICARE, OTHER ==
[2024-07-22 14:11] LABS: Creatinine Urine 77.3 mg/dL (27.00-270.00); Protein, Urine Quantitative 25.2 mg/dL (0.0-11.9)
[2024-07-22 14:13] LABS: Microalbumin, Urine Quant. 58.3 mg/L (0.000-20.000)
== END | disposition home or self-care (01) ==
LOC: LAB 08:00 → LAB SHORT 08:00 → LAB FUT 07-08 11:15
PROVIDERS: Internal Medicine Nephrology
DX: N18.30 Chronic kidney disease, stage 3 unspecified (principal); D63.1 Anemia in chronic kidney disease; N25.81 Secondary hyperparathyroidism of renal origin; E55.9 Vitamin D deficiency, unspecified; E27.0 Other adrenocortical overactivity; R76.9 Abnormal immunological finding in serum, unspecified; R94.5 Abnormal results of liver function studies; R94.6 Abnormal results of thyroid function studies
CPT/HCPCS: 81050; 82043; 82570; 84156

== ENCOUNTER 2024-08-20 08:11 | Inpatient (IN) | payer MEDICARE, OTHER ==
[2024-08-20] VITALS (35 sets, daily range): BP systolic 82–115; BP diastolic 48–64
[~2024-08-20] VITALS: Ht 182.9 cm; Wt 111.8 kg
[~2024-08-20 08:11] MED LIST changes: -AMLO5 PT; -Acetaminophen650 M1 PT; +BUME2 PO; -BUME2 PT; +ELIQUIS5 M2 PO; -ELIQUIS5 M2 PT; +POTA10T PO; -POTA10T PT; +TAMSULOSIN HCL0.4 M1 PO; -TAMSULOSIN HCL0.4 M1 PT
[2024-08-20 08:48] LABS: Hematocrit 34.1 % (37.0-53.0); Hemoglobin 10.6 g/dL (13.5-17.5); Mean Corpuscular HGB Conc 31.1 g/dL (31.5-36.5); Mean Corpuscular Volume 84 fL (80-100); Mean Platelet Volume 10.6 fL (9.1-12.4); Platelet Count 191 K/mm3 (150-400); RDW Coefficient Variation 17.6 % (11.7-14.2); RDW Standard Deviation 53.3 fL (35.1-46.3); Red Blood Cell Count 4.08 M/mm3 (4.30-5.90); White Blood Cell Count 10.45 K/mm3 (4.00-11.30)
[2024-08-20] MEDS ORDERED: NS 500 ML IV SCH ×2 (08:55→10:10)
[2024-08-20] MEDS ORDERED: CefTRIAXone Sodium 1,000 MG in NS 50 ML IV ONE (09:05)
[2024-08-20] MEDS ORDERED: Azithromycin 500 MG in NS 250 ML IV ONE (09:05)
[2024-08-20 09:07] LABS: Albumin, Blood 2.1 g/dL (3.4-5.0); Albumin/Globulin Ratio 0.3 (0.8-1.8); Bilirubin, Total 2.9 mg/dL (0.1-1.0); Bun/Creatinine Ratio 30.9 (12.0-20.0); Calcium, Blood 8.5 mg/dL (8.5-10.1); Creatinine, Blood 1.65 mg/dL (0.60-1.20); Globulin, Blood 6.1 g/dL (2.2-4.0); Potassium, Blood 4.2 mmol/L (3.5-5.5); Total Protein, Blood 8.2 g/dL (6.4-8.2)
[2024-08-20 09:11] LABS: BAND PERCENT MAN 28 % (0-8); BASOPHILS PERCENT MAN 0 % (0-2); EOSINOPHILS PERCENT MAN 1 % (0-6); LYMPHOCYTES % ATYPICAL MANUAL 1 % (0-0); LYMPHOCYTES PERCENT MAN 1 % (21-46); METAMYELOCYTE PERCENT MAN 1 % (0-0); MONOCYTES ABSOLUTE MAN 0.31 K/mm3 (0.16-1.47); MONOCYTES PERCENT MAN 3 % (4-13); NEUTROPHILS ABSOLUTE MAN 9.71 K/mm3 (1.96-9.15); SEG NEUTROPHILS PERCENT MAN 65 % (41-73); TOTAL CELLS COUNTED 100
[2024-08-20 09:51] LABS: Influenza A, PCR NEGATIVE (NEGATIVE); Influenza B, PCR NEGATIVE (NEGATIVE); Resp Syncytial Virus, PCR NEGATIVE (NEGATIVE); SARS-Cov-2 (COVID-19) PCR, MMC NEGATIVE (NEGATIVE)
[2024-08-20] MEDS ORDERED: Furosemide 10 MG/ML 10ML Vial IV ONE (11:30)
[2024-08-20] MEDS ORDERED: FLU VACC TS2024-25(6MOS UP)/PF 45 MCG/0.5 ML SYRINGE IM SCH (11:40)
[2024-08-20] MEDS ORDERED: Acetaminophen 325 MG TABLET PO PRN (11:45)
[2024-08-20] MEDS ORDERED: LevoFLOXacin 750 MG/D5W 150ML 150 ML IV SCH (12:00)
[2024-08-20 12:22] LABS: Source, Urine Clean Catch
[2024-08-20 12:55] LABS: Bilirubin, Urine Neg (Neg); Blood, Urine 4+ (Neg); Glucose Qualitative, Urine Neg (Neg); Ketones, Urine Neg (Neg); Leukocyte Esterase, Urine 1+ (Neg); Nitrite, Urine Neg (Neg); Protein, Urine 2+ (Neg); Specific Gravity, Urine 1.015 (1.003-1.022); Urobilinogen, Urine 2+ (Normal)
[2024-08-20 13:25] LABS: Appearance, Urine Clear (Clear); Color, Urine Yellow (P-Yellow)
[2024-08-20 13:28] LABS: Bacteria Few /hpf; Hyaline Casts 0-2 /lpf (0-2); Squamous Epithelial Cells Rare /hpf (Few)
[2024-08-20] MEDS ORDERED: Morphine Sulfate 4 MG/1 ML Injection IV ONE (13:35)
--- NOTE | 2024-08-20 17:45 | NUR ---
ARRIVAL TO ICU/SHIFT SUMMARY PT ARRIVES TO ICU AT 1405 FROM ER FOR SEPTIC SHOCK. REPORT FROM OLVIN MIGUEL. PT ARRIVES A&OX 2-3. FOLLOWS SIMPLE COMMANDS. ABLE TO MAKE NEEDS KNOWN. KNOWS SEASON AND YEAR BUT NOT DATE, SPORTS PHOTOGRAPHER WEAK ON LEFT HAND, PT REPORTS PREVIOUS CVA c LEFT SIDED DEFICIT. STATES HE NORMALLY AMBULATES c CANE. INCREASED WEAKNESS FOR THREE DAYS, UNABLE TO AMB TO EAT OR DRINK. REPORTS GENERALIZED BODY PAIN. AFIB, RATE 50-70'S c BBB. LEVO GTT FOR MAP>65. CVC TO RIJ. LUNGS CLEAR, DIM IN BASES, 1L VIA NC, O2 SATS >95%. OCCASIONAL NON PRODUCTIVE COUGH. DENIES SOB. ABD ROUND, SOFT, NON TENDER, BT X 4. WAHL PATENT, DRAINING 350 ML YELLOW URINE c BLOOD AND CLOTS. SKIN FRAGILE. PT REPORTS POOR SKIN CONDITION CHRONIC. PHOTOS IN CHART. PERIAREA MOIST, RED, EDEMATOUS c MULTIPLE AREAS OF SKIN TEARS AND EXCORATIONS. BLE c SCABS, LEFT LATERAL LEG c MULTIPLE SKIN TEARS. FAMILY AT BEDSIDE ON ARRIVAL TO ICU. PT TOLERATING FULL LIQUID DIET WELL. WILL CONTINUE PLAN OF CARE UNTIL REPORT TO ONCOMING NURSE.
[2024-08-20] MEDS ORDERED: Lactobacil 2-S.Thermo-Bifido 1 1 Cap PO SCH (21:00)
[2024-08-20] MEDS ORDERED: Apixaban 5 MG Tab PO SCH (21:00)
[2024-08-21] VITALS (82 sets, daily range): BP systolic 82–119; BP diastolic 31–78
[2024-08-21] MEDS ORDERED: FentaNYL Citrate 50 MCG/ML 2 ML Injection IV ONE (01:00)
[2024-08-21] MEDS ORDERED: OxyCODONE HCL 5 MG TAB PO PRN (04:00)
[2024-08-21 05:10] LABS: Hematocrit 30.5 % (37.0-53.0); Hemoglobin 9.8 g/dL (13.5-17.5); Mean Corpuscular HGB 26.5 pg (26.0-34.0); Mean Corpuscular HGB Conc 32.1 g/dL (31.5-36.5); Mean Corpuscular Volume 82 fL (80-100); Mean Platelet Volume 10.8 fL (9.1-12.4); Platelet Count 242 K/mm3 (150-400); RDW Coefficient Variation 17.5 % (11.7-14.2); RDW Standard Deviation 52.8 fL (35.1-46.3); White Blood Cell Count 10.11 K/mm3 (4.00-11.30)
[2024-08-21 05:33] LABS: Albumin, Blood 1.7 g/dL (3.4-5.0); Albumin/Globulin Ratio 0.3 (0.8-1.8); Bilirubin, Total 2.3 mg/dL (0.1-1.0); Bun/Creatinine Ratio 36.4 (12.0-20.0); Calcium, Blood 8.3 mg/dL (8.5-10.1); Creatinine, Blood 1.43 mg/dL (0.60-1.20); Globulin, Blood 5.2 g/dL (2.2-4.0); Potassium, Blood 3.6 mmol/L (3.5-5.5); Total Protein, Blood 6.9 g/dL (6.4-8.2)
[2024-08-21 05:35] LABS: BAND PERCENT MAN 22 % (0-8); BASOPHILS PERCENT MAN 0 % (0-2); EOSINOPHILS PERCENT MAN 1 % (0-6); LYMPHOCYTES % ATYPICAL MANUAL 2 % (0-0); LYMPHOCYTES PERCENT MAN 3 % (21-46); METAMYELOCYTE PERCENT MAN 2 % (0-0); MONOCYTES PERCENT MAN 3 % (4-13); NEUTROPHILS ABSOLUTE MAN 8.99 K/mm3 (1.96-9.15); SEG NEUTROPHILS PERCENT MAN 67 % (41-73); TOTAL CELLS COUNTED 100
--- NOTE | 2024-08-21 06:16 | NUR ---
SHIFT SUMMERY PT IS ALERT AND ORIENTED X4. LEVOPHED INFUSING AT 15MCGS/KG/MIN. AFEBRILE. WAHL CATH INTACT PATENT AND DRAINING TO GRAVITY. RIJ CVL, DRESSING CHANGED. PT W/MULTIPLE WOUNDS-PICTURES ON CHART, SEE DOCUMENTATION. PT IS AFIB ON CARDIAC MONTIOR. COMPLAINTS OF PAIN IN LEGS TREATED PER EMAR. BLOOD CULTURES POSITIVE, DR MEDINA NOTIFIED.
[2024-08-21] MEDS ORDERED: Enoxaparin 40 MG/0.4 ML SYR SC SCH (09:00)
[2024-08-21] MEDS ORDERED: LevoFLOXacin 750 MG/D5W 150ML 150 ML IV SCH (09:00)
[2024-08-21] MEDS ORDERED: CefTRIAXone Sodium 1,000 MG in NS 100 ML IV SCH (09:00)
[2024-08-21] MEDS ORDERED: Apixaban 5 MG Tab PO SCH (09:00)
[2024-08-21] MEDS ORDERED: LOVA40 PO (11:10)
--- NOTE | 2024-08-21 17:20 | NUR ---
SHIFT SUMMARY NO ACUTE CHANGES THIS SHIFT. PT REMAINS ALERT AND ORIENTED WHEN AWAKE. PT COMPLAINS OF DISCOMFORT WITH REPOSITIONING. MED PER EMAR. PT WITH CENTRAL LINE TO RIJ IN PLACE WITH LEVOPHED INFUSING AT 12 MCG/MIN. VITAL SIGNS STABLE. PT ON ROOM AIR. WAHL REMAINS IN PLACE WITH DARK YELLOW URINE OUTPUT NOTED. WOUNDS AND EDEMA REMAINS UNCHANGED. PT TAKING IN PO INTAKE WELL. PT SPOUSE AND DAUGHTER AT BEDSIDE TO VISIT THIS MORNING. WILL CONTINUE TO MONITOR AND REPORT OFF TO ONCOMING RN.
[2024-08-21] MEDS ORDERED: Midodrine 5 MG Tab PO SCH (18:00)
[2024-08-22] VITALS (55 sets, daily range): BP systolic 90–121; BP diastolic 41–72
[2024-08-22 04:47] LABS: Hematocrit 30.1 % (37.0-53.0); Hemoglobin 9.8 g/dL (13.5-17.5); Mean Corpuscular HGB 26.3 pg (26.0-34.0); Mean Corpuscular HGB Conc 32.6 g/dL (31.5-36.5); Mean Corpuscular Volume 81 fL (80-100); Mean Platelet Volume 9.7 fL (9.1-12.4); NRBC ABSOLUTE 0.03 K/mm3 (0.00-0.02); NRBC Auto 0.3 /100 WBC (0.0-0.2); Platelet Count 244 K/mm3 (150-400); RDW Coefficient Variation 17.6 % (11.7-14.2); RDW Standard Deviation 51.6 fL (35.1-46.3); Red Blood Cell Count 3.73 M/mm3 (4.30-5.90); White Blood Cell Count 11.19 K/mm3 (4.00-11.30)
[2024-08-22 05:05] LABS: Bun/Creatinine Ratio 40.2 (12.0-20.0); Calcium, Blood 8.2 mg/dL (8.5-10.1); Creatinine, Blood 1.17 mg/dL (0.60-1.20); Potassium, Blood 3.5 mmol/L (3.5-5.5)
--- NOTE | 2024-08-22 05:11 | NUR ---
SHIFT SUMMERY PT HAS BEEN ALERT AND ORIENTED X4. AFIB ON THE BILLING AND INSURANCE COORDINATOR W/RATE CONTROLLED. LEVO INFUSING TO MAINTAIN MAP>65, SEE FLOWSHEET. AFEBRILE. OXYGEN SAT >92% ON ROOM AIR. WAHL CATH INTACT PATENT AND DRAINING TO GRAVITY. PAIN MANAGED W/REPOSITIONING AND MEDICATIONS-SEE EMAR. PT HAS HAD NO ACUTE CHANGES OVERNIGHT.
[2024-08-22 05:31] LABS: BAND PERCENT MAN 15 % (0-8); BASOPHILS PERCENT MAN 0 % (0-2); EOSINOPHILS PERCENT MAN 0 % (0-6); LYMPHOCYTES ABSOLUTE MAN 0.33 K/mm3 (0.84-5.20); LYMPHOCYTES PERCENT MAN 3 % (21-46); MONOCYTES ABSOLUTE MAN 0.22 K/mm3 (0.16-1.47); MONOCYTES PERCENT MAN 2 % (4-13); NEUTROPHILS ABSOLUTE MAN 10.63 K/mm3 (1.96-9.15); SEG NEUTROPHILS PERCENT MAN 80 % (41-73); TOTAL CELLS COUNTED 100
[2024-08-22] MEDS ORDERED: NS 250 ML IV PRN (08:15)
--- NOTE | 2024-08-22 13:22 | NUR ---
ASSUMED CARE A&OX4. VSS. ON ROOM AIR, SATS IN THE 90'S. WAHL IN PLACE AND DRAINING TO GRAVITY. CENTRAL LINE TO RIJ, DRESSING IN TACT. LEVO INFUSING. MULTIPLE WOUNDS ON BUTTOCK AND BLE. BARRIER CREAM APPLIED TO SCROTAL WOUND. MEPALEX IN PLACE ON BUTTOCK AND LEG WOUNDS. DR. MAGANA NOTIFIED OF WOUNDS. TOLERATING PO INTAKE. ST/PT/OT EVAL PLANNED FOR TODAY. WILL GET OOB AND UP TO RECLINER THIS SHIFT.
[2024-08-22] MEDS ORDERED: Albumin (Human) 25gm/100ml 100 ML IV SCH (13:50)
[2024-08-22] MEDS ORDERED: Midodrine 5 MG Tab PO SCH (16:00)
--- NOTE | 2024-08-22 17:32 | NUR ---
SHIFT SUMMARY PT IS SITTING UP IN THE RECLINER. A&OX4. VSS. ROOM AIR WITH SATS IN THE 90'S. AFIB ON MONITOR. LEVO TITRATED DOWN TO 6 MG/MIN. MAPS STABLE >65 T/O THIS SHIFT. MIDODRINE INCREASED TO 10MG Q8. WAHL PATENT AND DRAINING TO GRAVITY. WOUNDS REDRESSED WITH MEPALEX TODAY. CHG BATH GIVEN. WORKED WITH PT/OT THIS SHIFT. SWALLOW EVAL DONE WITH ST. PAIN MANAGED PER EMAR WITH SOME RELIEF. NO ACUTE EVENTS THIS SHIFT.
[2024-08-23] VITALS (46 sets, daily range): BP systolic 100–174; BP diastolic 48–93
[2024-08-23 04:08] LABS: Hematocrit 28.9 % (37.0-53.0); Hemoglobin 9.3 g/dL (13.5-17.5); Mean Corpuscular HGB 26.2 pg (26.0-34.0); Mean Corpuscular HGB Conc 32.2 g/dL (31.5-36.5); Mean Corpuscular Volume 81 fL (80-100); Mean Platelet Volume 9.7 fL (9.1-12.4); Platelet Count 224 K/mm3 (150-400); RDW Coefficient Variation 17.7 % (11.7-14.2); RDW Standard Deviation 52.4 fL (35.1-46.3); Red Blood Cell Count 3.55 M/mm3 (4.30-5.90); White Blood Cell Count 11.97 K/mm3 (4.00-11.30)
[2024-08-23 04:31] LABS: Bun/Creatinine Ratio 39.7 (12.0-20.0); Calcium, Blood 8.6 mg/dL (8.5-10.1); Creatinine, Blood 0.96 mg/dL (0.60-1.20); Potassium, Blood 3.5 mmol/L (3.5-5.5)
[2024-08-23 04:32] LABS: BAND PERCENT MAN 9 % (0-8); BASOPHILS PERCENT MAN 0 % (0-2); EOSINOPHILS ABSOLUTE MAN 0.59 K/mm3 (0.00-0.68); EOSINOPHILS PERCENT MAN 5 % (0-6); LYMPHOCYTES ABSOLUTE MAN 0.35 K/mm3 (0.84-5.20); LYMPHOCYTES PERCENT MAN 3 % (21-46); MONOCYTES ABSOLUTE MAN 0.11 K/mm3 (0.16-1.47); MONOCYTES PERCENT MAN 1 % (4-13); NEUTROPHILS ABSOLUTE MAN 10.89 K/mm3 (1.96-9.15); SEG NEUTROPHILS PERCENT MAN 82 % (41-73); TOTAL CELLS COUNTED 100
--- NOTE | 2024-08-23 06:18 | NUR ---
SHIFT SUMMARY PATIENT IN BED SLEEP ON AND OFF ALL NIGHT. A&O X3, NURSE ENCOURAGED DOLORESN TO DRINK THE CRANBERRY DRINK HE ASKED FOR. LUNGS CLEAR BUT DIMINSHED IN LOWER LOBES, HR IN THE 50-60'S , SBP 115-130'S, WAHL DRAINING TO GRAVITY, LEGS ELEVATED WITH PILLOWS, SCROTUM WOPUND CLEANED AND COLD COMPRESSED PLACED AND THEN REMOVED, BARRIER CREAM APPLIED TO SCROTUM. PATIENT HAS WEAKNESS ON LEFT SIDE DUE TO A CVA HE HAD IN 2021. CALL LIGHT WITHIN REACH.
--- NOTE | 2024-08-23 08:00 | NUR ---
ASSUMED CARE A&OX4. RESPONDING APPROPRIATLY. CALLS APPROPRIATLY. HR IN THE 50-60'S. AFIB ON THE MONITOR. MAPS >65 WITH LEVO INFUSING. ON ROOM AIR, SATS IN THE 90'S, DENIES SOB/CP. LUNG SOUNDS CLEAR AND DIM IN THE BASES. WAHL PATENT AND DRAINING TO GRAVITY. TOLERATING PO DIET. PAIN MANAGED WITH MEDICATION PER EMAR WITH SOME RELIEF. RIJ PATENT AND INFUSING, DRESSING C/D/I. WOUNDS COVERED WITH MEPALEX. CALL LIGHT IN REACH.
[2024-08-23] MEDS ORDERED: Furosemide 10 MG / ML 2ML Vial IV SCH (09:00)
[2024-08-23] MEDS ORDERED: Albumin (Human) 25gm/100ml 100 ML IV SCH (09:01)
[2024-08-23] MEDS ORDERED: Magnesium Hydroxide Conc 10 ML UDC PO PRN (09:55)
--- NOTE | 2024-08-23 17:04 | NUR ---
SHIFT SUMMARY PT IS A&OX4. RESPONDS AND CALLS APPROPRIATLY. HR 50'S-60'S, AFIB ON THE MONITOR. LEVO INFUSING INTO RIJ AT 4MG/HR, MAPS >65 T/O THIS SHIFT. ROOM AIR WITH SATS IN THE 90'S, DENIES SOB. LUNG SOUNDS CLEAR, DIM IN BASES. WEAK COUGH. WAHL PATENT AND DRAINING TO GRAVITY, LASIX STARTED TODAY, UOP CHARTED. NO BM SINCE ADMISSION, BOWEL REGIMEN INITIATED THIS SHIFT. TOLERATING PO INTAKE. WOUNDS DRESSED WITH MEPALEX AND BARRIER CREAM. CHG BATH GIVEN THIS SHIFT. ABD CT DONE THIS SHIFT. NO ACUTE EVENTS. CALL LIGHT IN REACH.
--- NOTE | 2024-08-23 19:57 | NUR ---
ASSUME CARE: PT A/Ox4 AND COOPERATIVE W/CARE. BP STABLE, MAP>65. DENIES CHEST PAIN OR PRESSURE. HR 50s-60s. LEVOPHED GTT INFUSING IN RIJ @ 4 MCG/MIN. SPO2>90% ON RA, DENIES SOB. WAHL PATENT AND DRAINING TO GRAVITY. PT Q2 REPOSITIONING FOR WEAKNESS, AND PRESENCE OF WOUNDS. CALL LIGHT IN REACH, PT ABLE TO MAKE NEEDS KNOWN. WILL UPDATE NEEDED.
[2024-08-23] MEDS ORDERED: Potassium Chl 20MEQ/Water100ML 100 ML IV SCH (20:45)
[2024-08-23] MEDS ORDERED: Docusate Sodium 100 MG Cap PO SCH (21:00)
[2024-08-23] MEDS ORDERED: Sennosides 8.6 MG Tab PO SCH (21:00)
--- NOTE | 2024-08-23 21:23 | NUR ---
UPDATE DR FITCH NOTIFIED OF PT RECEIVING LASIX TODAY, PTS 08/23 AM POTASSIUM 3.5, AND NO MORNING LABS ORDERED IN AM. ORDER RECEIVED FOR CBC, CHEM 8, AND 40 MEQ OF KCL.
[2024-08-24] VITALS (59 sets, daily range): BP systolic 92–120; BP diastolic 44–73
[2024-08-24 04:25] LABS: BASOPHILS ABSOLUTE AUTO 0.05 K/mm3 (0.00-0.23); BASOPHILS PERCENT AUTO 0 % (0-2); EOSINOPHILS ABSOLUTE AUTO 0.15 K/mm3 (0.00-0.68); EOSINOPHILS PERCENT AUTO 1 % (0-6); Hematocrit 27.8 % (37.0-53.0); Hemoglobin 8.9 g/dL (13.5-17.5); IMMATURE GRAN ABSOLUTE AUTO 0.21 K/mm3 (0.00-0.10); IMMATURE GRAN PERCENT AUTO 2 % (0-1); LYMPHOCYTES ABSOLUTE AUTO 0.86 K/mm3 (0.84-5.20); LYMPHOCYTES PERCENT AUTO 7 % (21-46); MONOCYTES ABSOLUTE AUTO 0.62 K/mm3 (0.16-1.47); MONOCYTES PERCENT AUTO 5 % (4-13); Mean Corpuscular HGB 25.8 pg (26.0-34.0); Mean Corpuscular Volume 81 fL (80-100); Mean Platelet Volume 9.4 fL (9.1-12.4); NEUTROPHILS PERCENT AUTO 85 % (41-73); Platelet Count 220 K/mm3 (150-400); RDW Coefficient Variation 17.8 % (11.7-14.2); RDW Standard Deviation 52.1 fL (35.1-46.3); Red Blood Cell Count 3.45 M/mm3 (4.30-5.90); White Blood Cell Count 12.69 K/mm3 (4.00-11.30)
[2024-08-24 04:42] LABS: Calcium, Blood 8.8 mg/dL (8.5-10.1); Creatinine, Blood 0.86 mg/dL (0.60-1.20); Potassium, Blood 4.1 mmol/L (3.5-5.5)
--- NOTE | 2024-08-24 05:08 | NUR ---
SHIFT SUMMARY: PT A/Ox4 AND COOPERATIVE W/CARE T/O THE NIGHT. SBP 100s, MAP>65. DENIES CP OR PRESSURE. HR 50s-60s. SPO2>93% ON RA. LEVOPHED GTT INFUSING AT 2 MCG/MIN IN RIJ. WAHL PATENT AND DRAINING ORANGE URINE TO GRAVITY, W/GOOD OUTPUT. NO ACUTE CHANGES OVER NIGHT. CALL LIGHT IN REACH. WILL REPORT TO ONCOMING RN.
--- NOTE | 2024-08-24 08:00 | NUR ---
ASSUMED CARE BEDSIDE REPORT FROM HARLEY RN AT 0700. PT RESTING IN BED. A&OX 4. FOLLOWS SIMPLE COMMANDS. ABLE TO MAKE NEEDS KNOWN. USES CALL LIGHT APPROPRIATELY. STATES HE IS FEELING "A LITTLE BETTER." CONTINUES TO C/O GENERALIZED PAIN ALL OVER BODY. MEDICATED ORDERED. HX OF CVA c LEFT SIDED DEFICITS. LIMITED ROM TO LEFT SIDE. GENERALIZED WEAKNESS TO RIGHT LOWER EXT WORSE THAN UPPER. ABLE TO FEED SELF. AFIB, RATE 50-60'S. LEVO GTT INFUSING FOR MAP>65. CVC TO RIJ, DRESSING C/D/I. LUNGS DIM IN BASES, ON RA, O2 SATS >95%. SPEAKING IN FULL SENTENCES. OCCASIONAL COUGH, NON PRODUCTIVE. ABD ROUND, SOFT, GENERALIZED TENDERNESS, BOWEL CARE GIVEN. WAHL PATENT, DRAINING NIKOS URINE c SEDIMENT TO GRAVITY, DIURESING. ANASCARSA, ABD, SCROTUM EDEMATOUS. 2+ EDEMA TO BLE. SKIN FRAGILE, EXCORATIONS TO PERIAREA, SCROTUM. PHOTOS IN CHART. SCATTERED SCABS TO BLE. WILL CONTINUE PLAN OF CARE.
--- NOTE | 2024-08-24 17:21 | NUR ---
SHIFT SUMMARY NO ACUTE CHANGES THIS SHIFT. REMAINS ON LEVO FOR MAP>65. AFIB, RATE 50-60'S. NEURO UNCHANGED. LUNGS DIM IN BASES, ON RA. UP TO CHAIR MOST OF SHIFT. BED BATH COMPLETE, SKIN CONTINUES TO BE FRAGILE, DRESSINGS CHANGED. WAHL PATENT, DIURESED, 1000 ML NIKOS URINE c SEDIMENT OUT. POOR APPETITE, DISLIKES FOOD CHOICES. NO BM THIS SHIFT. CVC TO RIJ. WILL CONTINUE PLAN OF CARE UNTIL REPORT TO ONCOMING NURSE.
[2024-08-25] VITALS (52 sets, daily range): BP systolic 93–132; BP diastolic 36–96
[2024-08-25 03:29] LABS: BASOPHILS ABSOLUTE AUTO 0.07 K/mm3 (0.00-0.23); BASOPHILS PERCENT AUTO 1 % (0-2); EOSINOPHILS ABSOLUTE AUTO 0.13 K/mm3 (0.00-0.68); EOSINOPHILS PERCENT AUTO 1 % (0-6); Hematocrit 27.8 % (37.0-53.0); IMMATURE GRAN PERCENT AUTO 4 % (0-1); LYMPHOCYTES ABSOLUTE AUTO 0.88 K/mm3 (0.84-5.20); LYMPHOCYTES PERCENT AUTO 7 % (21-46); MONOCYTES ABSOLUTE AUTO 0.68 K/mm3 (0.16-1.47); MONOCYTES PERCENT AUTO 5 % (4-13); Mean Corpuscular HGB 25.9 pg (26.0-34.0); Mean Corpuscular HGB Conc 32.4 g/dL (31.5-36.5); Mean Corpuscular Volume 80 fL (80-100); Mean Platelet Volume 9.3 fL (9.1-12.4); NEUTROPHILS ABSOLUTE AUTO 11.23 K/mm3 (1.96-9.15); NEUTROPHILS PERCENT AUTO 83 % (41-73); Platelet Count 243 K/mm3 (150-400); RDW Coefficient Variation 18.1 % (11.7-14.2); RDW Standard Deviation 51.9 fL (35.1-46.3); Red Blood Cell Count 3.47 M/mm3 (4.30-5.90); White Blood Cell Count 13.49 K/mm3 (4.00-11.30)
[2024-08-25 03:46] LABS: Bun/Creatinine Ratio 31.6 (12.0-20.0); Calcium, Blood 8.6 mg/dL (8.5-10.1); Creatinine, Blood 0.89 mg/dL (0.60-1.20); Potassium, Blood 3.8 mmol/L (3.5-5.5)
--- NOTE | 2024-08-25 06:24 | NUR ---
SHIFT SUMMARY PATIENT SLEPT MOST OF NIGHT. WHEN AWAKE DRANK PEPSI AND ATE ICE CREAM. TOOL MEDS PO WITH WATER. PATEINT HAS WAHL DRAINING TO GRAVITY ORANGE COLORED URINE. HR IN THE 80'S AND SBP IN THE 120'S MAP 72. PATIENT A&O X3 AND COOPERATES IN CARE. CALL LIGHT WITHIN REACH.
--- NOTE | 2024-08-25 09:41 | NUR ---
ASSUMED CARE BEDSIDE REPORT FROM MYA MIGUEL AT 0700. PT RESTING IN BED. A&OX 4. FOLLOWS COMMANDS. ABLE TO MAKE NEEDS KNOWN. REPORTS GOOD SLEEP LAST NOC. CONTINUES TO C/O GENERALIZED PAIN "ALL OVER." MEDICATED ORDERED. LUNGS CLEAR. ON RA. O2 SATS >95%. OCCASIONAL COUGH. PT OCCASIONALLY DROOLING, SPEECH EVAL'D. PLAN FOR BARIUM STUDY. AFIB, RATE 50-60'S. BP STABLE, LEVO ON STANDBY, MAP>65. ANASCARSA, 1+ EDEMA TO BLE, LEFT LATERAL SKIN TEARS WEEPING, SCROTUM AND PENIS c DEPENDENT EDEMA. ABD DISTENDED, SOFT, OBESE, BT X 4. NO BM, BOWEL CARE GIVEN. WAHL PATENT, DRAINING NIKOS URINE TO GRAVITY. SKIN FRAGILE AND EXCORIATED, SEE SKIN ASSESSMENT. CVC TO RIJ. WILL CONTINUE PLAN OF CARE.
--- NOTE | 2024-08-25 17:16 | NUR ---
SHIFT SUMMARY PT REMAINED OFF LEVO THIS SHIFT. MAP >65 AT THIS TIME. AFIB, RATE 50-60'S. BARIUM SWALLOW COMPLETED THIS SHIFT AND DIET CHANGED. JOINT ASPIRATION ALSO PERFORMED, SAMPLE SENT TO LAB BY U/S. ABD DISTENDED, SOFT, GENERALIZED TENDERNESS, BT X 4. BOWEL CARE GIVEN, NO BM THIS SHIFT. WAHL PATENT, 650 ML NIKOS URINE c SEDIMENT OUT. BED BATH COMPLETE. SKIN CONTINUES TO BE FRAGILE AND EXCORATED c BLEEDING. POWERGLIDE PLACED, CVC TO BE REMOVED. WILL CONTINUE PLAN OF CARE UNTIL REPORT TO ONCOMING NURSE.
[2024-08-26] VITALS (24 sets, daily range): BP systolic 105–127; BP diastolic 48–89
[2024-08-26 03:34] LABS: Hematocrit 26.6 % (37.0-53.0); Hemoglobin 8.7 g/dL (13.5-17.5); Mean Corpuscular HGB 26.1 pg (26.0-34.0); Mean Corpuscular HGB Conc 32.7 g/dL (31.5-36.5); Mean Corpuscular Volume 80 fL (80-100); Mean Platelet Volume 9.4 fL (9.1-12.4); Platelet Count 233 K/mm3 (150-400); RDW Coefficient Variation 18.3 % (11.7-14.2); RDW Standard Deviation 52.6 fL (35.1-46.3); Red Blood Cell Count 3.33 M/mm3 (4.30-5.90); White Blood Cell Count 10.08 K/mm3 (4.00-11.30)
[2024-08-26 03:59] LABS: Bun/Creatinine Ratio 28.8 (12.0-20.0); Calcium, Blood 8.4 mg/dL (8.5-10.1); Creatinine, Blood 0.9 mg/dL (0.60-1.20); Potassium, Blood 3.6 mmol/L (3.5-5.5)
--- NOTE | 2024-08-26 05:55 | NUR ---
SHIFT SUMMARY PATIENT SLEPT UNTIL ABOUT 0200 AND WAS HUNGRY AND THRISTY. GAVE PATIENT JELLO X2 AND SOME THICKENED WATER. PATIENT DID NOT LIKE THICKENED WATER. GAVE PO MEDS IN APPLESAUCE. A&OX3, PATEINT HAS LEFT SIDE DEFICIT. HAS WAHL DRAINING TO GRAVITY DARK NIKOS COLORED URINE. HAD MINCED AND MOIST DIET DUE TO FAILED BARRIUM SWALLOW. LEVOPHED ON STANDBY, MAP IN 70'S HR IN THE 50-60'S. CALL LIGHT WITHIN REACH.
--- NOTE | 2024-08-26 08:05 | NUR ---
ASSUMED CARE: REPORT RECEIVED FROM LAMONT ROQUE. ASSUMED CARE OF THIS PT AT APPROX 0700. ON ASSESSMENT, THE PT IS RESTING QUIETLY & AWAKENS EASILY TO VERBAL STIMULUS. HE IS A&O TO ALL AT THAT TIME, GENERALIZED WEAKNESS & LEFT SIDE DEFICIT NOTED R/T HX CVA IN 2021. LUE FLACCID, LLE WITH LIMITED ROM/ CONTRACTURES. LS DIM IN BASES, PT ON RA WITH O2 SATS > 92%. MONITOR SHOWS AFIB WITH BBB, HR 50-60s, BP STABLE WITH MIDODRINE PER EMAR. PT HAS NO CURRENT GI COMPLAINTS, IS TOLERATING PO INTAKE WELL - SWALLOW PRECAUTIONS PER ST. WAHL PATENT/ DRAINING NIKOS URINE WITH LARGE AMNTS SEDIMENT NOTED. SKIN CONDITION OVERALL POOR, CLEANSED & DRY LINENS APPLIED PRN. Q2H REPOSITIONING TO MAINTAIN SKIN INTEGRITY. WILL CONTINUE TO MONITOR & UPDATE NEEDED.
[2024-08-26 08:30] LABS: Free Thyroxine 0.85 ng/dL (0.70-1.60); Triiodothyronine, Free 0.95 pg/mL (2.18-3.98)
--- NOTE | 2024-08-26 08:30 | NUR ---
DR JACOBS: PROVIDER AT BEDSIDE TO EVAL PT THIS AM. ABX DOSING ADJUSTED. THIS RN NOTIFIED PROVIDER OF ELIQUIS BEING HELD THIS AM R/T DR PALACIOS CONSULTATION NOTE YESTERDAY MENTIONING POSSIBILITY OF FURTHER SURGICAL INTERVENTION OF HIP. NO OTHER CHANGES AT THIS TIME.
[2024-08-26] MEDS ORDERED: CefTRIAXone Sodium 2,000 MG in NS 100 ML IV SCH (09:00)
[2024-08-26] MEDS ORDERED: Empagliflozin 10 MG TAB PO SCH (09:00)
--- NOTE | 2024-08-26 18:57 | NUR ---
SHIFT SUMMARY: NO ACUTE CHANGES SINCE PRIOR UPDATES. THE PT IS PCU STATUS. REMAINS A&O TO ALL, LEFT SIDE DEFICITS BUT PARTICIPATES IN CARE MEASURES ABLE. ON RA WITH O2 SATS > 92%. MONITOR SHOWS AFIB WITH BBB & OCCASIONAL PVCs, HR 50s, BP STABLE WITH MIDODRINE PER EMAR. TOLERATING PO INTAKE WELL WITH NO GI COMPLAINTS, NO BM THIS SHIFT. SWALLOW PRECAUTIONS PER SPEECH THERAPY. WAHL PATENT/ DRAINING NIKOS URINE, REMAINS IN PLACE R/T OPEN AGNES WOUNDS. SKIN CONDITION OVERALL FRAGILE - SEE ASSESSMENT. WOUNDS HAVE ALL BEEN CLEANSED & REDRESSED THIS AFTERNOON. Q2H REPOSITIONING. WILL CONTINUE TO MONITOR & REPORT OFF TO ONCOMING RN.
--- NOTE | 2024-08-26 20:00 | NUR ---
Assumed care of pt at 1900. Pt appears to be resting comfortably on bed, watching TV. Aox4 and responds to questions appropriately. Pt denies pain at this time. Pt has TKO line running at 10ml/hr. Pt on room air, sats greather than 92%. Lung sounds coarse and dim in bases. Pt has weak cough. On continuous court monitor, afib rate of 50s observed. Some PVCs. Pt stable w/ systolics in 110s. Pt has murdock cath- patent and draining yellow urine to gravity. Pt has multiple wounds- dressed w/ pink foam dressings. Pt being repositioned q2hrs. Tolerating po intake well and able to take medications w/ out applesauce w/out incident. Giving thickened liquids as ordered by ST. Pt has call light w/ in reach and denies pain or further needs at this time. Plan of care ongoing.
[2024-08-26] MEDS ORDERED: Protein Supplement 30 ML UD PO SCH (21:00)
[2024-08-26] MEDS ORDERED: Arginine/Glutamine/Calcium Hmb 1 Packet PO SCH (21:00)
[2024-08-27] VITALS (7 sets, daily range): BP systolic 97–124; BP diastolic 49–60
[2024-08-27 04:14] LABS: Hematocrit 26.1 % (37.0-53.0); Hemoglobin 8.5 g/dL (13.5-17.5); Mean Corpuscular HGB 26.3 pg (26.0-34.0); Mean Corpuscular HGB Conc 32.6 g/dL (31.5-36.5); Mean Corpuscular Volume 81 fL (80-100); Mean Platelet Volume 9.1 fL (9.1-12.4); Platelet Count 252 K/mm3 (150-400); RDW Coefficient Variation 18.6 % (11.7-14.2); RDW Standard Deviation 52.9 fL (35.1-46.3); Red Blood Cell Count 3.23 M/mm3 (4.30-5.90); White Blood Cell Count 10.64 K/mm3 (4.00-11.30)
[2024-08-27 04:52] LABS: Albumin, Blood 2.2 g/dL (3.4-5.0); Albumin/Globulin Ratio 0.5 (0.8-1.8); Bilirubin, Total 2.2 mg/dL (0.1-1.0); Bun/Creatinine Ratio 34.2 (12.0-20.0); Calcium, Blood 8.7 mg/dL (8.5-10.1); Creatinine, Blood 0.85 mg/dL (0.60-1.20); Globulin, Blood 4.4 g/dL (2.2-4.0); Total Protein, Blood 6.6 g/dL (6.4-8.2)
--- NOTE | 2024-08-27 05:11 | NUR ---
END OF SHIFT SUMMARY NO ACUTE EVENTS OVERNIGHT. PT ORIENTED AND COOPERATIVE W/ CARE. NS RUNNING AT 10ML/HR. PT ON ROOM AIR, SATS>90%. LUNGS CLEAR AND DIM IN BASES. PT BP STABLE W/ SYSTOLICS IN THE 100-110S. MAP>65. HR IS MATILDA AFIB, RATE OF 50-60S W/ OCCASSIONAL PVCS. WAHL CATH REMAINS IN PLACE W/ ADEQUATE OUTPUT. URINE IS DARK. NO BM THIS SHIFT. PT MEDICATED FOR SCROTAL PAIN. AREA IS SWOLLEN AND AREA OF BREAKDOWN TO POSTERIOR ASPECT. WOUND IS WEEPING. MED-HONEY APPLIED. PINK FOAM DRESSINGS TO ALL WOUNDS. LIMBS ELEVATED AND PT TURNED Q2 HOURS. PT TOLERATED NECTAR THICK LIQUIDS AND TOOK PO MEDICATIONS W/ APPLESAUCE W/OUT INCIDENT. CALL LIGHT W/ IN REACH. PLAN OF CARE ONGOING.
[2024-08-27 12:51] LABS: International Normalized Ratio 1.59; Prothrombin Time Results 16.4 Sec (9.7-11.5)
[2024-08-27 12:53] LABS: Anti-Xa UFH, PHA Monitoring >1.50 IU/mL
[2024-08-27] MEDS ORDERED: Dose Adjust by Pharmacy XX STA (13:44)
--- NOTE | 2024-08-27 19:15 | NUR ---
Pt remained strict NPO today for difficulty swallowing, per ELECTRONICS HARDWARE DESIGN ENGINEER report just before pt was transferred to PCU. He has been alert and oriented, and turned every 2 hours, only on his sides, not supine. Dressings were changed during the complete bedbath after transfer to PCU [address] Stearns saw the patient and said that PEG tube will be placed after he is well enough, and no longer being treated for sepsis. Dobhoff placed to the 60 cm esther and confirmed with xray for placement. He is receiving tube feedings at this time.
[2024-08-27] MEDS ORDERED: Heparin Sodium,Porcine/0.5 NS 500 ML IV SCH (20:00)
[2024-08-27] MEDS ORDERED: Protein Supplement 30 ML UD PT SCH (21:00)
[2024-08-27] MEDS ORDERED: Arginine/Glutamine/Calcium Hmb 1 Packet PT SCH (21:00)
[2024-08-28 02:15] LABS: BASOPHILS ABSOLUTE AUTO 0.07 K/mm3 (0.00-0.23); BASOPHILS PERCENT AUTO 1 % (0-2); EOSINOPHILS PERCENT AUTO 1 % (0-6); Hematocrit 26.8 % (37.0-53.0); Hemoglobin 8.6 g/dL (13.5-17.5); IMMATURE GRAN ABSOLUTE AUTO 0.54 K/mm3 (0.00-0.10); IMMATURE GRAN PERCENT AUTO 5 % (0-1); LYMPHOCYTES ABSOLUTE AUTO 0.89 K/mm3 (0.84-5.20); LYMPHOCYTES PERCENT AUTO 8 % (21-46); MONOCYTES PERCENT AUTO 7 % (4-13); Mean Corpuscular HGB 26.1 pg (26.0-34.0); Mean Corpuscular HGB Conc 32.1 g/dL (31.5-36.5); Mean Corpuscular Volume 81 fL (80-100); Mean Platelet Volume 9.3 fL (9.1-12.4); NEUTROPHILS ABSOLUTE AUTO 9.18 K/mm3 (1.96-9.15); NEUTROPHILS PERCENT AUTO 79 % (41-73); Platelet Count 295 K/mm3 (150-400); RDW Standard Deviation 54.8 fL (35.1-46.3); White Blood Cell Count 11.58 K/mm3 (4.00-11.30)
[2024-08-28 02:23] LABS: Albumin, Blood 2.2 g/dL (3.4-5.0); Albumin/Globulin Ratio 0.5 (0.8-1.8); Bun/Creatinine Ratio 43.3 (12.0-20.0); Calcium, Blood 8.3 mg/dL (8.5-10.1); Creatinine, Blood 0.83 mg/dL (0.60-1.20); Globulin, Blood 4.8 g/dL (2.2-4.0); Magnesium, Blood 2.2 mg/dL (1.6-2.4); Phosphorus, Blood 2.5 mg/dL (2.5-4.9)
--- NOTE | 2024-08-28 02:42 | NUR ---
SHIFT SUMMARY NEURO: A/OX3- UNSURE OF HOSPITAL COURSE. BASELINE LEFT SIDED WEAKNESS- LEFT ARM FLACCID, L FOOT ABLE TO WIGGLES TOES. DECONDITIONED THROUGHOUT. CARDIAC: AFIB, BLE EDEMA. HEPARIN GTT STARTED. TUBING LEBELED AND DATED. LUNGS: ON RA. DIMINISHED. GI/: JEVITY 1.5 RUNNING AT 50ML/HR, Q2 110ML H20 FLUSHES. DOBHOFF IN PLACE. PT C/O CONSTIPATION. ABD DISTENDED BUT SOFT. LAST BM CHARTED 08/16/24. MILK OF MAG GIVEN. SKIN: WOUND PHOTOS TAKEN THIS SHIFT AND PLACED IN CHART. NECROTIC TISSUE AND FOUL ODOR PRESENT. PAIN: PT IS DESCRIBING NEUROPATHIC PAIN THROUGHOUT
[2024-08-28] MEDS ORDERED: Dose Adjust by Pharmacy XX STA ×4 (03:05→23:21)
[2024-08-28 03:17] VITALS: BP 103/55
[2024-08-28 07:23] VITALS: BP 110/56
[2024-08-28] MEDS ORDERED: Bumetanide 1 MG Tab PO SCH (08:00)
[2024-08-28] MEDS ORDERED: Docusate Sodium 100 MG UDC PT SCH (09:00)
--- NOTE | 2024-08-28 11:56 | NUR ---
WOUNDS: PT GETTING BED BATH. ASSESSED MULTIPLE WOUNDS AND REDRESSED AND CLEANED NEEDED. PT HAD MODERATE AMT LIQUID BM AT TIME OF BEDBATH. DIETARY IN TO SEE PATIENT.
[2024-08-28 13:30] VITALS: BP 109/62
[2024-08-28 15:41] VITALS: BP 110/60
--- NOTE | 2024-08-28 16:52 | NUR ---
Pt fatigued complains of aching pain. Just had tylenol. review of symptoms with nursing may benefit from alternate route of tylenol such ars rectal. May suggest low dose scheduled.
--- NOTE | 2024-08-28 17:16 | NUR ---
SHIFT SUMMARY A+O X3. DECONDITIONED WITH BASELINE LEFT SIDED WEAKNESS. Q2 TURNS AND REPOSITIONING. NEW DRESSINGS PLACED ON ALL WOUNDS TODAY. TYLENOL FOR PAIN PRN. HEP GTT INFUSING PER ORDERS. PT REMAINS IN AFIB. LI PATENT WITH TUBE FEEDINGS INFUSING PER ORDERS. PT CAN SWALLOW PO MEDS CRUSHED IN APPLESAUCE, OTHERWISE NPO. PT HAVING LIQ BMs TODAY. WAHL PATENT AND DRAINING TO GRAVITY. PALLIATIVE CARE HAD DISCUSSION WITH PT FAMILY ABOUT POSSIBILITY OF HOSPICE AND CODE STATUS. NO OTHER ACUTE CHANGES TODAY. CALL LIGHT WITHIN REACH.
[2024-08-28 19:42] VITALS: BP 107/62
[2024-08-28 20:56] LABS: WBC Count, Synovial Fluid 553 /mm3 (0-180)
[2024-08-28 21:19] LABS: Appearance, Synovial Fluid Clear (Clear); Color, Synovial Fluid Yellow (None-P Yel); RBC Count, Synovial Fluid 118 /mm3 (0-0)
[2024-08-28 22:28] LABS: Lymphs, Synovial Fluid 19 % (0-15); Monocytes/Macrophages, Synovia 50 % (0-65); Neutrophils, Synovial Fluid 31 % (0-24)
[2024-08-28 23:25] VITALS: BP 111/57
--- NOTE | 2024-08-29 | NUR ---
UPDATE TUBE FEED STOPPED AT THIS TIME D/T POSSIBLE I/D WITH ORTHO 08/29.
[2024-08-29 03:51] VITALS: BP 122/61
[2024-08-29 05:38] LABS: BASOPHILS ABSOLUTE AUTO 0.08 K/mm3 (0.00-0.23); BASOPHILS PERCENT AUTO 1 % (0-2); EOSINOPHILS ABSOLUTE AUTO 0.12 K/mm3 (0.00-0.68); EOSINOPHILS PERCENT AUTO 1 % (0-6); Hematocrit 27.4 % (37.0-53.0); Hemoglobin 8.8 g/dL (13.5-17.5); IMMATURE GRAN ABSOLUTE AUTO 0.42 K/mm3 (0.00-0.10); IMMATURE GRAN PERCENT AUTO 3 % (0-1); LYMPHOCYTES ABSOLUTE AUTO 1.01 K/mm3 (0.84-5.20); LYMPHOCYTES PERCENT AUTO 8 % (21-46); MONOCYTES ABSOLUTE AUTO 0.81 K/mm3 (0.16-1.47); MONOCYTES PERCENT AUTO 6 % (4-13); Mean Corpuscular HGB 26.4 pg (26.0-34.0); Mean Corpuscular HGB Conc 32.1 g/dL (31.5-36.5); Mean Corpuscular Volume 82 fL (80-100); Mean Platelet Volume 9.6 fL (9.1-12.4); NEUTROPHILS ABSOLUTE AUTO 10.76 K/mm3 (1.96-9.15); NEUTROPHILS PERCENT AUTO 82 % (41-73); Platelet Count 307 K/mm3 (150-400); RDW Coefficient Variation 19.6 % (11.7-14.2); RDW Standard Deviation 56.3 fL (35.1-46.3); Red Blood Cell Count 3.33 M/mm3 (4.30-5.90)
[2024-08-29 05:57] LABS: Albumin, Blood 2.2 g/dL (3.4-5.0); Albumin/Globulin Ratio 0.4 (0.8-1.8); Bilirubin, Total 1.7 mg/dL (0.1-1.0); Bun/Creatinine Ratio 49.6 (12.0-20.0); Calcium, Blood 8.3 mg/dL (8.5-10.1); Creatinine, Blood 0.79 mg/dL (0.60-1.20); Globulin, Blood 5.3 g/dL (2.2-4.0); Potassium, Blood 3.9 mmol/L (3.5-5.5); Total Protein, Blood 7.5 g/dL (6.4-8.2)
--- NOTE | 2024-08-29 06:26 | NUR ---
SHIFT SUMMARY PATIENT ALERT AND ORIENTED x3-4. PATIENT USING CALL LIGHT APPROPRIATELY AND IS ABLE TO MAKE NEEDS KNOWN TO STAFF. ON TELE, NO EVENTS NOTED. BP STABLE. PATIENT ON RA WITH SPO2 >90%. DOBHOFF IN PLACE, TF INFUSING PER ORDER UNTIL 0000 FOR POSSIBILITY OF PROCEDURE WITH ORTHO. PATIENT HAS SIGNIFICANT WOUNDS, SEE PHOTOS IN CHART. WAHL IN PLACE DRAINING DARK YELLOW URINE TO GRAVITY. PATIENT WITH VERY SOFT FREQUENT STOOLS, ATTEMPT TO KEEP WOUNDS AND DRESSINGS C/D/I. PATIENT TURNED AND DRESSINGS CHANGED FREQUENTLY. NO OTHER CHANGES DURING THE NIGHT, WILL REPORT TO DAY SHIFT RN.
[2024-08-29 07:43] VITALS: BP 116/63
[2024-08-29] MEDS ORDERED: Dose Adjust by Pharmacy XX STA ×2 (08:17→16:19)
--- NOTE | 2024-08-29 13:27 | NUR ---
CASE CONFERENCE: Met with pt, and daughter this am at bedside. Dr. Love also present for part of the meeting. The patient continues to struggle with plan of care. He states he doesn't want to return to rehab "ever again," at times, but then states he has to, because, "My can't take care of me." Dr. Love explained that post surgical intervention, the pt will have to remain on IV antibiotics for 4-6 weeks. The patient is at times agreeable to this plan, but other times over the past couple days states he does not want surgery, instead wants to go home to his house and focus on being comfortable. However, the patient's is adamant he continue with surgery, and the more she tells him this, the more he agrees to surgical intervention and follow up with IV abx in rehab facility. He failed his swallow evaluation, and currently has a dobhoff in place. He will need PEG tube prior to transfer to SNF. Pt states he is aware, as he has previously had a PEG tube, but eventually regained his swallow. The patient has a history of CVA and residual R sided weakness, hx of L femoral neck fracture approx 7 months ago. Of note, the patient was brought in "covered in feces, and had maggots in coccyx wound. He also had scrotal cellulitis upon admission. Pt's appears elderly and frail. Discharge planning may need another look for the safety and well-being of the patient and his spouse.
[2024-08-29 15:44] VITALS: BP 124/57
--- NOTE | 2024-08-29 18:09 | NUR ---
SHIFT SUMMARY: PT ALERT AND ORIENTED X2-3. POOR HISTORIAN. EASILY FORGETFUL. HX OF CVA W/ L. SIDE DEFICIT. BP AND HR STABLE. AFEBRILE. SPO2 >96% ON ROOM AIR. LUNG SOUNDS DIM THROUGHOUT. RESP EVEN AND UNLABORED. PT STRICT NPO FOR ASPIRATION RISK. DOBHOFF IN PLACE. TUBE FEEDINGS CURRENTLY ON HOLD. ABD SOFT, BOWEL SOUNDS +. PT WITH +2 EDEMA IN BLE. PULSES FAINT. DIUERISING WELL, WAHL CATH IN PLACE, PATENT AND DRAINING YELLOW URINE TO GRAVITY. APPROX 1500ML OUTPUT THIS SHIFT. ONE BM. PT WITH WOUNDS SCATTERED THROUGHOUT, SEE CHART. REPOS Q2 TO MAINTAIN SKIN INTEGRITY. PT WITH I&D PLACEMENT LATER THIS EVENING, HEPARIN ON STANDBY. PALLATIVE CARE IN THIS AM TO HAVE MEETING WITH PT AND FAMILY. BED IN LOW, CALL LIGHT IN REACH, WILL REPORT TO ONCOMING RN.
[2024-08-29 21:33] VITALS: BP 127/63
[2024-08-29] MEDS ORDERED: FentaNYL Citrate 50 MCG/ML 2 ML Injection ONE (22:19)
[2024-08-29] MEDS ORDERED: propofoL 20 ML IV ONE (22:19)
[2024-08-29] MEDS ORDERED: Morphine Sulfate 4 MG/1 ML Injection IV PRN (23:45)
[2024-08-29] MEDS ORDERED: Ondansetron HCl 2 MG / ML 2ML Vial IV PRN (23:45)
[2024-08-29] MEDS ORDERED: FentaNYL Citrate 50 MCG/ML 2 ML Injection IV PRN ×2 (23:50→23:55)
[2024-08-29] MEDS ORDERED: HYDROmorphone HCl/Pf 1MG SYR IV PRN (23:55)
[2024-08-29] MEDS ORDERED: Vancomycin HCl 1000 MG ADDvantage ONE (23:58)
[2024-08-30] VITALS (13 sets, daily range): BP systolic 96–147; BP diastolic 40–91
[2024-08-30] MEDS ORDERED: HydrALAZINE HCl 20 MG / ML 1ML Vial IV PRN (00:05)
[2024-08-30] MEDS ORDERED: Albuterol 2.5 MG/3 ML VIAL INH PRN (00:05)
--- NOTE | 2024-08-30 05:43 | NUR ---
SHIFT MAZINY PT WENT TO SURGERY FOR I AND D OF LEFT HIP THIS SHIFT, RETURNED AT APPX 0100. DRESSING TO LEFT HIP IS DRY AND INTACT. VS HAVE BEEN STABLE. PT HAS DOBHOFF IN PLACE. WAHL CATH INTACT PATENT AND DRAINING TO GRAVITY. HEPARIN DRIP WAS RESTARTED AT PREVIOUS RATE 2 HOURS AFTER SURGERY ENDED PER MD ORDER. AFEBRILE. PT HAS HAD NO ACUTE CHANGES TO PLAN OF CARE OVERNIGHT.
[2024-08-30 08:43] LABS: BASOPHILS ABSOLUTE AUTO 0.06 K/mm3 (0.00-0.23); BASOPHILS PERCENT AUTO 1 % (0-2); EOSINOPHILS ABSOLUTE AUTO 0.03 K/mm3 (0.00-0.68); EOSINOPHILS PERCENT AUTO 0 % (0-6); Hematocrit 23.5 % (37.0-53.0); Hemoglobin 7.5 g/dL (13.5-17.5); IMMATURE GRAN ABSOLUTE AUTO 0.19 K/mm3 (0.00-0.10); IMMATURE GRAN PERCENT AUTO 2 % (0-1); LYMPHOCYTES ABSOLUTE AUTO 0.79 K/mm3 (0.84-5.20); LYMPHOCYTES PERCENT AUTO 7 % (21-46); MONOCYTES ABSOLUTE AUTO 0.63 K/mm3 (0.16-1.47); MONOCYTES PERCENT AUTO 6 % (4-13); Mean Corpuscular HGB 26.5 pg (26.0-34.0); Mean Corpuscular HGB Conc 31.9 g/dL (31.5-36.5); Mean Corpuscular Volume 83 fL (80-100); Mean Platelet Volume 8.8 fL (9.1-12.4); NEUTROPHILS ABSOLUTE AUTO 9.47 K/mm3 (1.96-9.15); NEUTROPHILS PERCENT AUTO 85 % (41-73); Platelet Count 275 K/mm3 (150-400); RDW Coefficient Variation 19.9 % (11.7-14.2); RDW Standard Deviation 57.7 fL (35.1-46.3); Red Blood Cell Count 2.83 M/mm3 (4.30-5.90); White Blood Cell Count 11.17 K/mm3 (4.00-11.30)
[2024-08-30 09:31] LABS: Bun/Creatinine Ratio 45.5 (12.0-20.0); Calcium, Blood 8.6 mg/dL (8.5-10.1); Creatinine, Blood 0.79 mg/dL (0.60-1.20); Potassium, Blood 3.8 mmol/L (3.5-5.5)
[2024-08-30] MEDS ORDERED: Midodrine 5 MG Tab PO PRN (10:20)
[2024-08-30] MEDS ORDERED: Vancomycin HCL 2,500 MG in NS 500 ML IV ONE (15:50)
[2024-08-30] MEDS ORDERED: NS 1,000 ML IV SCH ×2 (16:00→23:25)
--- NOTE | 2024-08-30 16:59 | NUR ---
SHIFT SUMMARY: PT ALERT AND ORIENTED X2-3. ABLE TO MAKE NEEDS KNOWN. FORGETFUL AT TIMES, POOR HISTORIAN. PT WITH HX OF CVA W/ L. SIDE DEFECIT. BP AND HR STABLE. AFEBRILE. SPO2 >95% ON 2L NC. LUNG SOUNDS DIM, COUGH EFFORT WEAK. PULSES STRONG AND EQUAL THROUGHOUT. ABD SOFT, NON TENDER, BOWEL SOUNDS +. PT POST OP DAY 1 FOR I&D OF L. HIP. TOLERATED WELL. DRESSING REPLACED THIS SHIFT DUE TO OOZING AT SUTURE SITE. DOBHOFF REMAINS IN PLACE, TUBE FEEDING AT GOAL RATE OF 50ML/HR. NS GTT @150ML/HR. HEPARIN GTT, SEE EMAR. PT REPOS Q2 TO MAINTAIN SKIN INTEGRITY. ONE BM. WAHL CATHETER REMAINS IN PLACE, PATENT AND DRAINING YELLOW URINE TO GRAVITY. AND FAMILY AT BEDSIDE THIS AM, UPDATED ON PT PLAN OF CARE. BED IN LOW, CALL LIGHT IN REACH, WILL REPORT TO ONCOMING RN.
[2024-08-30] MEDS ORDERED: RIFAMPIN 300 MG PO SCH (21:00)
[2024-08-30] MEDS ORDERED: NS 500 ML IV SCH (21:10)
--- NOTE | 2024-08-30 22:56 | NUR ---
ASSUMED CARE OF PATIENT AT 1900. REPORT RECEIVED FROM LAMONT VALERA. PT ASLEEP IN BED BUT EASILY AROUSABLE TO VERBAL STIMULI. REQUESTING ORANGE JUICE UPON WAKING. ON 3LPM O2 WITH O2 SATURATIONS > 92%. BP STABLE. TF INFUSING. HEPARIN INFUSING AT 21 U/KG/HR, NS INFUSING AT 150 mL/HR. NO ACUTE NEEDS IDENTIFED AT THIS TIME. SEE SHIFT ASSESSMENT FOR FULL DETAILS.
[2024-08-30] MEDS ORDERED: Dose Adjust by Pharmacy XX STA (23:50)
[2024-08-31] VITALS (35 sets, daily range): BP systolic 93–130; BP diastolic 43–92
--- NOTE | 2024-08-31 01:36 | NUR ---
MAP < [address]ED TO RESIDENT DR. PRATER REGARDING PT MAPs RANGING FROM 62-74. PER RESIDENT, THESE MAPs ARE OKAY AND IF THEY DROP BELOW 60'S TO LET HIM KNOW AND HE WILL ORDER ANOTHER FLUID BOLUS.
[2024-08-31 03:42] LABS: Hemoglobin 6.3 g/dL (13.5-17.5); Mean Corpuscular HGB 26.9 pg (26.0-34.0); Mean Corpuscular HGB Conc 31.5 g/dL (31.5-36.5); Mean Corpuscular Volume 86 fL (80-100); Platelet Count 237 K/mm3 (150-400); RDW Coefficient Variation 20.5 % (11.7-14.2); RDW Standard Deviation 59.3 fL (35.1-46.3); Red Blood Cell Count 2.34 M/mm3 (4.30-5.90); White Blood Cell Count 10.02 K/mm3 (4.00-11.30)
[2024-08-31 04:38] LABS: Bun/Creatinine Ratio 48.5 (12.0-20.0); Calcium, Blood 7.2 mg/dL (8.5-10.1); Creatinine, Blood 0.7 mg/dL (0.60-1.20); Potassium, Blood 3.3 mmol/L (3.5-5.5)
[2024-08-31] MEDS ORDERED: Vancomycin HCL 1,500 MG in NS 250 ML IV SCH (05:00)
--- NOTE | 2024-08-31 05:28 | NUR ---
SHIFT SUMMARY PT REMAINED ALERT AND ORIENTED X 3 T/O ENTIRETY OF SHIFT. UNABLE TO VERBALIZE DATE/TIME. ABLE TO FOLLOW COMMANDS, MAKE PURPOSEFUL MOVEMENTS, AND MAKE NEEDS KNOWN. AFEBRILE AND DENIES PAIN. COOPERATIVE WITH CARE AND PLEASANT WITH STAFF. 500 mL BOLUS GIVEN AT APPROXIMATELY 2130. MAPS FOLLOWING BOLUS RANGED FROM 61-74. RESIDENT DR. PRATER MADE AWARE (SEE NOTE). REMAINED ON 3LPM O2 VIA NC WITH O2 SATURATIONS > 92%. CONTINUES WITH WEAK COUGH. OGT INFUSING CONTINUOUS FEEDS AT GOAL RATE OF 50 mL/HR WITH 110 mL FLUSHES Q2H. WAHL DRAINING ORANGE YELLOW URINE TO GRAVITY. NO BM THIS SHIFT. DENIES NAUSEA. DRESSINGS REMAIN C/D/I. HEPARIN PAUSED T/O EVENING PER PHARMACY AND RESUMED AT 18 U/KG/HR. VANCO INFUSING. WILL CONTINUE TO MONITOR AND REPORT TO ONCOMING RN.
[2024-08-31] MEDS ORDERED: Potassium Chloride 20 MEQ TabCR PO ONE (05:40)
[2024-08-31] MEDS ORDERED: Midodrine 5 MG Tab PO PRN (07:15)
[2024-08-31] MEDS ORDERED: Potassium Chloride 20 MEQ/15 ML UDC PO ONE (08:00)
--- NOTE | 2024-08-31 10:05 | NUR ---
UPDATE: HEPARIN ON STANDBY AT THIS TIME.
[2024-08-31 11:16] LABS: Hematocrit 22.9 % (37.0-53.0); Hemoglobin 7.2 g/dL (13.5-17.5)
[2024-08-31 15:15] LABS: Hematocrit 26.7 % (37.0-53.0); Hemoglobin 8.4 g/dL (13.5-17.5)
[2024-08-31] MEDS ORDERED: Furosemide 10 MG/ML 4ML Vial ONE (15:58)
[2024-08-31] MEDS ORDERED: Furosemide 10 MG/ML 4ML Vial IV STA (15:59)
--- NOTE | 2024-08-31 16:31 | NUR ---
TRANSFER IO ICU/RAPID RESPONSE: THIS RN CALLED TO PCU 18 BY BACON SKIN LIFTER @5307 FOR OXYGEN SATURATIONS <75%. ENTERING THE ROOM, PT LETHARGIC, ABLE TO RESPOND TO VERBAL STIMULI. SATING 70% ON 5L NC. PT CONTINUNING TO DESAT WITH INCREASED RESPIRATIONS. LUNG SOUNDS WET THROUGHOUT. OXYGEN INCREASED BY THIS RN. BIO MEDICAL TECHNICIAN AND RT CALLED TO BEDSIDE. NON REBREATHER PLACED WITH NO IMPROVEMENT. SPO2 <50%. MD CALLED TO BEDSIDE AND RAPID RESPONSE CALLED. ICU BIO MEDICAL TECHNICIAN AND WARD SERVICE SUPERVISOR AT BESIDE, PT PLACED ON BIPAP WITH MINIMAL IMPROVMENT. 40MG OF IV LASIX GIVEN, SEE EMAR. PT REMAINS FULL CODE STATUS AT TIME OF RAPID RESPONSE. ORDERS RECEIVED FOR ICU TRANSFER. BEDSIDE REPORT GIVEN TO SEDA MIGUEL.
[2024-08-31 16:46] LABS: Hematocrit 29.6 % (37.0-53.0); Hemoglobin 9.2 g/dL (13.5-17.5)
[2024-08-31 17:06] LABS: Albumin, Blood 2.4 g/dL (3.4-5.0); Anion Gap 8 mmol/L (3-11); Blood Urea Nitrogen 39 mg/dL (8-24); Bun/Creatinine Ratio 46.9 (12.0-20.0); CO2, Blood 29 mmol/L (21-32); Calcium, Blood 8.4 mg/dL (8.5-10.1); Chloride, Blood 105 mmol/L (98-108); Creatinine, Blood 0.83 mg/dL (0.60-1.20); Glomerular Filtration Rate 88 (60-); Glucose, Blood 133 mg/dL (70-99); Phosphorus, Blood 3.6 mg/dL (2.5-4.9); Potassium, Blood 4.1 mmol/L (3.5-5.5); Sodium, Blood 138 mmol/L (136-145)
--- NOTE | 2024-08-31 17:23 | NUR ---
RAPID RESPONSE CALLED. PATIENT SATURATIONS WERE DECREASED. PROVIDED THERAPUTIC SUPPORT TO PATIENTS SISTER JEFFRY. SHE REPORTED THAT HERSELF AND HER DAUGHTER MORENO HAVE BEEN HER VISITIN ED. HIS ODILIA DOES NOT DRIVE. SHE REPORTS THAT HERSELF AND SPIKE ARE NOT ON GOOD TERMS. WE DISCUSSED THAT ED MAY NEED TO BE INTUBATED. PER DR. MENDOZA THE PATIENT AND HIS MADE IT CLEAR THAT THE PATIENT WOULD WANT ANY INTERVENTIONS TO SAVE HIS LIFE. JEFFRY REPORTED THAT FOR HERSELF THAT SHE WOULD NOT WANT THAT BUT UNDERSTANDS THAT WE WOULD RESPECT [facility] IF THAT IS WHAT HE WANTS. PROVIDER CONTACED AND SHE IS LOOKING FOR A RIDE TO COME IN TO SEE EDWARD.
--- NOTE | 2024-08-31 18:33 | NUR ---
Summary. Pt transferred from PCU to ICU after BUILDING CONSTRUCTION PROFESSOR called for acute respiratory distress. Pt alert, on bipap for airway support. Report received from STACKER TENDER. Family updated. See RT charting for Bipap settings. Dressing in place over L/hip surgical site. Per Dr. Blum, fluids on hold for now. Lung sounds coarse with crackles in bases and some expiratory wheezes noted. Physical exam otherwise agrees with previously charted assessment. See chart for further details.
--- NOTE | 2024-08-31 20:30 | NUR ---
ASSUMPTION OF CARE PT LYING IN BED WITH BIPAP ON AND FAMILY IN THE ROOM. PT ALERT AND ORIENTED WITH MUMBLED SPEECH. HR 109 AFIB WTIH PVCS AND STABLE BP. BIPAP SETTINGS 16 10 15 80% BREATING IS UNLABORED. PT IS PULLING AT MASK ON OCCASION. NO COMPLAINTS OF CHEST PAIN, SOB, NAUSEA OR DIAPHORESIS. PT CURRENTLY NPO WITHOUT DOBHOFF THAT WAS REMOVED [place]. WILL ATTMEPT REPLACEMENT DURING SHIFT. WAHL DRAINING YELLOW URINE TO GRAVITY. PT SAYS HE IS IN PAIN EVERYWHERE. PLAN IS TO ADDRESS WITH POSITION CHANGES AND MEDICATION ONCE A ROUTE IS ESTABLISHED. SKIN ISSUES OBSERVED. DRESSING CHANGES PLANNED. DR BAH VISITED PATIENT SHORTLY AFTER SHIFT CHANGE AND ORDERED CONTINUATION OF IV INFUSION MEDICATIONS. VANCO STARTED AND INFUSION OF HEPARIN STARTED AT 18 UNITS/HG/HR PER PHARMACY ORDERS. DR BAH ALSO SAID IT WOULD BE OKAY TO REMOVE PT FROM BIPAP. PT PLACED ON 5L NC WITH >90 O2 SATURATION. PT INCESSANTLY ASKING FOR WATER. DR BAH OKAYED ICE CHIPS OR SMALL SIPS, USING NURSING JUDGMENT. PT HANDLED SMALL AMOUNT OF ICE CHIPS FAIRLY. PT HAS SUCTION DEVICE AND CALL LIGHT HANDY.
[2024-08-31] MEDS ORDERED: Ondansetron HCl 2 MG / ML 2ML Vial IV PRN (22:55)
[2024-09-01] VITALS (49 sets, daily range): BP systolic 91–130; BP diastolic 42–65
[2024-09-01 04:46] LABS: Hematocrit 25.4 % (37.0-53.0); Hemoglobin 7.7 g/dL (13.5-17.5); Mean Corpuscular HGB 27.4 pg (26.0-34.0); Mean Corpuscular HGB Conc 30.3 g/dL (31.5-36.5); Mean Corpuscular Volume 90 fL (80-100); Mean Platelet Volume 9.1 fL (9.1-12.4); Platelet Count 280 K/mm3 (150-400); RDW Coefficient Variation 20.5 % (11.7-14.2); RDW Standard Deviation 64.1 fL (35.1-46.3); Red Blood Cell Count 2.81 M/mm3 (4.30-5.90); White Blood Cell Count 35.06 K/mm3 (4.00-11.30)
[2024-09-01 05:05] LABS: Bun/Creatinine Ratio 42.1 (12.0-20.0); Calcium, Blood 8.4 mg/dL (8.5-10.1); Potassium, Blood 4.7 mmol/L (3.5-5.5)
[2024-09-01] MEDS ORDERED: Dose Adjust by Pharmacy XX STA (05:30)
--- NOTE | 2024-09-01 06:48 | NUR ---
SHIFT SUMMARY PT LYING IN BED WITH BIPAP ON AND SLEEPING. PT IS DIFFICULT TO AROUSE AND STRUGGLES TO FOLLOW ALL COMMANDS. FALLS BACK TO SLEEP QUICKLY. . HR 80 AFIB WTIH PVCS AND STABLE BP, 106/51 (66). HEPARIN INFUSING AT 16 UNITS/KG/HR. BIPAP SETTINGS 16 10 15 40% BREATHING IS SYMMETRIC, LUNGS COARSE RIGHT MORE THAN LEFT AND DIMINISHED IN BASES. PT IS PULLING AT MASK ON OCCASION. PT KEEPS DROPPING LOWER JAW OUT OF MASK, CREATING A LEAK. PT DID WELL WHEN SWITCHED TO NC 5L. NO COMPLAINTS OF CHEST PAIN, SOB, NAUSEA OR DIAPHORESIS.ONE EPISODE OF NAUSEA TREATED WITH ZOFRAN DURING SHIFT. PT CURRENTLY NPO WITHOUT DOBHOFF THAT WAS REMOVED [place]. WAHL DRAINING ORANGE URINE TO GRAVITY. 500 ML DURING SHIFT. REPORT GIVEN TO ONCOMING NURSE. =
[2024-09-01] MEDS ORDERED: Vancomycin HCL 1,500 MG in NS 250 ML IV SCH (08:00)
[2024-09-01] MEDS ORDERED: Furosemide 10 MG/ML 4ML Vial IV SCH (09:00)
[2024-09-01 09:04] LABS: Base Excess Venous 2.3 mmol/L; PCO2 Venous 59.8 mmHg (38-42); pH Blood Venous 7.29 (7.34-7.37)
--- NOTE | 2024-09-01 11:39 | NUR ---
Case Conference: Met with pt, his and daughter at bedside. The patient has been moved to ICU after worsening respiratory symptoms. Hospitalist also present for this meeting. The patient has been re-evaluated by ST, and remains at high risk for ongoing aspiration, but he continues to ask for water to drink. His Geoffrey continues to push for treatment, but patient continues to give indications he wants to be made comfortable, including with asking for water and to removed the dobhoff. Pt and are talking now about decisions. Will continue to offer support to family and patient.
[2024-09-01] MEDS ORDERED: Acetaminophen 650 MG Supp PR PRN (13:15)
[2024-09-01] MEDS ORDERED: Scopolamine Hydrobromide Patch TOP PRN (13:15)
[2024-09-01] MEDS ORDERED: Ondansetron HCl 2 MG / ML 2ML Vial IV PRN (13:15)
[2024-09-01] MEDS ORDERED: LORazepam 1 MG Tab PO PRN (13:15)
[2024-09-01] MEDS ORDERED: Atropine Sulfate 1% Opth Soln 2ML BTL SL PRN (13:15)
[2024-09-01] MEDS ORDERED: LORazepam 2 MG/ML 1ML Injection IV PRN (13:15)
[2024-09-01] MEDS ORDERED: Morphine Sulfate 20 MG/1ML 1 ML Oral Syringe SL PRN (15:45)
--- NOTE | 2024-09-01 18:11 | NUR ---
TRANSFER FROM ICU PT TRANSFERED FROM ICU TO 354. COMFORT CARE ORDER IN PLACE. PT GIVEN ICE WATER. DENIES PAIN AT THIS TIME. WAHL PATENT & DRAINING. BREATHING UNLABORED AT THIS TIME.
[2024-09-02] MEDS ORDERED: MUPIROCIN2210 TOP (00:14)
[2024-09-02] MEDS ORDERED: MOME.1TO TOP (00:15)
--- NOTE | 2024-09-02 04:38 | NUR ---
SUMMARY: PT ON COMFORT MEASURES AND HAS BECOME MORE SOMNOLENT T/O NOCTE. HE ROUSED BRIEFLY OR SLEPT THROUGH REPOSITIONING AND CARE. PT HAD MULTIPLE SOFT BM'S W/THOROUGH SKIN CARE PERFORMED AND ATTENDS CHANGED PRN. MEPILEXES TO BUTTOCKS AND SCROTUM WERE REPLACED D/T BECOMING SOILED. WAHL IS PATENT AND DRAINING TO GRAVITY. RESPS ARE E/U BUT SLIGHTLY MORE SHALLOW AND TACHY THIS MORNING. WILL ASSESS POSSIBLE NEED FOR PRN MEDS FOR AIR HUNGER OR PAIN. INTERACTION W/STAFF HAS BEEN MINIMAL BUT HE HAS OPENED EYES TO VOICE AND SAID A FEW OCCASIONAL WORDS. NO ACUTE CHANGES. WCTM AND REPORT TO DAY RN.
--- NOTE | 2024-09-02 06:18 | NUR ---
UPDATE PROVIDED TO PT'S DAUGHTER (YANIRA). SHE REQUESTS TO BE CALLED IF POSSIBLE FOR S/S WORSENING OR IF PT EPPEARS IMMINENT. HER DISPATCH PHONE NUMBER IS AND THEY WILL ATTEMPT TO BE AT BEDSIDE. OTHERWISE SHE PLANS TO VISIT W/HER MOM AROUND 1030 THIS AM.
--- NOTE | 2024-09-02 13:43 | NUR ---
Met with pt's at bedside. The patient is no longer waking up, and breathing is slightly irregular. Pt's asks if he will wake up again, and I tell her it is too soon to know for sure. She is beginning to understand the severity of the patient's condition. Will continue offering support to the patient and family as needed.
--- NOTE | 2024-09-02 15:29 | NUR ---
"Spiritual care | post mortum family support Pt. has passed and Pts. sister arrived at bedside without knowledge of his passing. Palliative Care nurse briefed the family member and we both gave emtional support. The sister declined any specific spiritual care."
--- NOTE | 2024-09-02 15:34 | NUR ---
1443 THIS RN WENT INTO ROOM TO CHECK ON PT AND NOTICED NO CHEST MOVEMENT. REFERRED TO JACQUELINE MIGUEL, SHE ASCULATATED FOR HEART SOUNDS, WERE ABSENT. INFORMED AT 1445 PT HAD .
--- NOTE | 2024-09-02 16:12 | NUR ---
Comfort Care note: Pt peacefully at 1445 today. His Geoffrey had just left for home. She chose [facility] in [place] for mortuary prior to going home for the evening. Pt's sister arrived after the patient , both street car inspector and palliative offered condolences and street car inspector performed a life review with pt's sister. Currently attempting to reach Geoffrey before sending the patient into the care of [facility].
== END 2024-09-02 14:45 | DRG 463 ==
LOC: ER 08:11 → ICUE 08:12 → PCU 08:12 → ICUE 08:12 → ER 11:40 → ICUE 13:34 → PCU 08-27 10:15 → ICUE 08-31 16:26 → MEDS 09-01 18:05
PROVIDERS: Family Medicine; Internal Medicine; Internal Medicine Critical Care Medicine; Orthopaedic Surgery Sports Medicine; Student in an Organized Health Care Education/Training Program; ADMIT Internal Medicine
PROC: 02HV33Z Insertion of Infusion Device into Superior Vena Cava, Percutaneous Approach (ICD-10-PCS; 2024-08-20)
PROC: B548ZZA Ultrasonography of Superior Vena Cava, Guidance (ICD-10-PCS; 2024-08-20)
PROC: 3E03329 Introduction of Other Anti-infective into Peripheral Vein, Percutaneous Approach (ICD-10-PCS; 2024-08-20)
PROC: 3E033XZ Introduction of Vasopressor into Peripheral Vein, Percutaneous Approach (ICD-10-PCS; 2024-08-20)
PROC: 0T9B70Z Drainage of Bladder with Drainage Device, Via Natural or Artificial Opening (ICD-10-PCS; 2024-08-21)
PROC: 0S9B3ZZ Drainage of Left Hip Joint, Percutaneous Approach (ICD-10-PCS; 2024-08-25)
PROC: 0JBM0ZZ Excision of Left Upper Leg Subcutaneous Tissue and Fascia, Open Approach (ICD-10-PCS; principal; 2024-08-29 19:00)
PROC: 30233N1 Transfusion of Nonautologous Red Blood Cells into Peripheral Vein, Percutaneous Approach (ICD-10-PCS; 2024-08-31)
PROC: 5A09357 Assistance with Respiratory Ventilation, Less than 24 Consecutive Hours, Continuous Positive Airway Pressure (ICD-10-PCS; 2024-08-31)
DX: T84.52XA Infection and inflammatory reaction due to internal left hip prosthesis, initial encounter (principal); A40.8 Other streptococcal sepsis; I50.43 Acute on chronic combined systolic (congestive) and diastolic (congestive) heart failure; J18.9 Pneumonia, unspecified organism; R65.21 Severe sepsis with septic shock; J96.01 Acute respiratory failure with hypoxia; J69.0 Pneumonitis due to inhalation of food and vomit; Z51.5 Encounter for palliative care; Z66 Do not resuscitate; I13.0 Hypertensive heart and chronic kidney disease with heart failure and stage 1 through stage 4 chronic kidney disease, or unspecified chronic kidney disease; I48.20 Chronic atrial fibrillation, unspecified; N17.9 Acute kidney failure, unspecified; E87.20 Acidosis, unspecified; I96 Gangrene, not elsewhere classified; I42.9 Cardiomyopathy, unspecified; L02.416 Cutaneous abscess of left lower limb; I69.352 Hemiplegia and hemiparesis following cerebral infarction affecting left dominant side; I69.354 Hemiplegia and hemiparesis following cerebral infarction affecting left non-dominant side; E03.9 Hypothyroidism, unspecified; N18.2 Chronic kidney disease, stage 2 (mild); N49.2 Inflammatory disorders of scrotum; L89.152 Pressure ulcer of sacral region, stage 2; R53.81 Other malaise; R13.13 Dysphagia, pharyngeal phase; I27.20 Pulmonary hypertension, unspecified; D64.9 Anemia, unspecified; B87.1 Wound myiasis; Y79.2 Prosthetic and other implants, materials and accessory orthopedic devices associated with adverse incidents; Z96.653 Presence of artificial knee joint, bilateral; Z87.891 Personal history of nicotine dependence; Z79.01 Long term (current) use of anticoagulants
CPT/HCPCS: 0241U; 20611; 36415; 36430; 36556; 51702; 71045; 71250; 74176; 74230; 80048; 80053; 80069; 81001; 82248; 82803; 83605; 83735; 83880; 84100; 84145; 84439; 84481; 85014; 85018; 85025; 85027; 85520; 85610; 85730; 86850; 86900; 86901; 86923; 87040; 87070; 87075; 87077; 87086; 87147; 87186; 87205; 89051; 92526; 92610; 92611; 93005; 93010; 93306; 94660; 94664; 94760; 94762; 96361-59; 96365-59; 96366; 96367; 96367-59; 96368; 96375; 96376; 97110; 97112; 97162; 97166; 97530; 97535; 99285-25; A9270; C1751; G0378; J0456; J0696; J1644; J1940; J1956; J2270; J2405; J2704; J3010; J3370; J3480; J7030; J7040; J7050; J7060; P9016; P9047